=== PATIENT | female | born 1975 | race Caucasian/White ===

== ENCOUNTER 2020-07-28 10:35 | Observation (INO) | payer OTHER ==
[2020-07-28] MEDS ORDERED: Zofran 4 MG/2 ML VIAL IV ONE (10:51)
[2020-07-28] MEDS ORDERED: Sodium Chloride 0.9% 1000 ML 1,000 ML IV STA (10:51)
[2020-07-28] MEDS ORDERED: TORAdol 30 mg Injection IV ONE (10:51)
[2020-07-28] MEDS ORDERED: TORAdol 30 mg Injection ONE (10:58)
[2020-07-28] MEDS ORDERED: Sodium Chloride 0.9% 1000 ML 1,000 ML ONE (10:58)
[2020-07-28] MEDS ORDERED: Zofran 4 MG/2 ML VIAL ONE (10:58)
[2020-07-28 11:07] LABS: Absolute Neutrophil Ct (ANC) 6.49 (1.4-6.9); BASOPHIL % 0.2 % (0.0-0.4); Basophil (Absolute #) 0.02 (0-0.4); Eosinophil % 0.4 % (0.00-5.0); Eosinophil (Absolute #) 0.03 (0-0.5); Hematocrit 44.4 % (35-47); Hemoglobin 14.7 gm/dl (12.0-16.0); Lymphocyte (Absolute #) 1.34 (1.0-4.6); Lymphocytes % 16.5 % (24.0-44.0); Mean Cell Volume 76.9 fl (78-100); Mean Corpuscular Hemoglobin 25.5 pg (26-32); Mean Corpuscular Hgb Concent. 33.1 g/dl (32-36); Mean Platelet Volume 10.4 fl (7.5-11.0); Monocyte (Absolute #) 0.26 (0.0-1.3); Monocytes % 3.2 % (0.0-12.0); Neutrophil % 79.7 % (36.0-66.0); Platelet Count 326 K/mm3 (150-450); Red Blood Count 5.77 M/mm3 (4.1-5.4); Red Cell Distribution Width 13.7 % (11.5-14.0); White Blood Count 8.1 K/mm3 (4.0-10.5)
[2020-07-28 11:16] LABS: Amourphous Crystal FEW /HPF (NEGATIVE); Appearance CLOUDY (CLEAR); Bacteria FEW /HPF (NEGATIVE); Bilirubin NEGATIVE (NEGATIVE); Blood NEGATIVE Ery/ul (0-5); Epithelial Cells RARE /HPF (FEW); Glucose NEGATIVE (NEGATIVE); Ketones SMALL (NEGATIVE); Leukocyte Esterase NEGATIVE (NEGATIVE); Mucus SLIGHT /HPF (NEGATIVE); Nitrite NEGATIVE (NEGATIVE); Protein,Urine Dip 30 (Negative); Specific Gravity 1.018 (1.005-1.025); Urobilinogen NEGATIVE mg/dL (0-1); WBC 0-2 /HPF (0-5)
[2020-07-28 11:20] LABS: ALBUMIN 4.2 g/dL (3.5-5.0); ALKALINE PHOSPHATASE 176 U/L (38-126); ANION GAP 14.4 MEQ/L (5-15); BLOOD UREA NITROGEN 9 mg/dL (7-17); CHLORIDE 103 mmol/L (98-107); Carbon Dioxide 24 mmol/L (22-30); Creatinine 1 0.43 mg/dL (0.52-1.04); EST GLOMERULAR FILTRATION RATE > 60.0 ML/MIN; Glucose 137 mg/dL (74-106); LIPASE 56 U/L (23-300); Potassium 3.8 mmol/L (3.5-5.1); SGOT/AST 34 U/L (14-36); SGPT/ALT 34 U/L (0-35); SODIUM 137 mmol/L (137-145); Total Protein 7.7 g/dL (6.3-8.2)
[2020-07-28] MEDS ORDERED: BENADRYL 50 MG/ML IV ONE (11:45)
[2020-07-28] MEDS ORDERED: BENADRYL 50 MG/ML ONE (11:46)
--- NOTE | 2020-07-28 12:14 | XRAY ---
Indication: Left sided pain. Nausea and vomiting. Ureterolithiasis. Multiple contiguous axial images obtained through the abdomen and pelvis without contrast using renal stone protocol. Comparison: None Lung bases are clear. Heart is not enlarged. Small hiatal hernia. Several images through the abdomen are slightly degraded by respiration artifact. No renal calculus or evidence for obstructive uropathy in either system. Noncontrasted stomach and bowel loops appear nonobstructed. Normal appendix. No free fluid/air. Previous cholecystectomy. Remaining liver, pancreas, spleen, adrenal glands, kidneys, ureters, bladder, and uterus appear unremarkable for noncontrast exam. Minimal aortic calcifications without AAA. Osseous structures intact with minimal degenerative changes throughout the spine. No ventral or inguinal hernias. Impression: 1. Respiration artifact. 2. Negative renal calculus or evidence for obstructive uropathy. 3. Incidental small hiatal hernia.
--- NOTE | 2020-07-28 12:21 | ERPHSYRPT ---
- History of Present Illness Time Seen by Provider: 07/28/20 10:40 Historian: patient Exam Limitations: no limitations Patient Subjective Stated Complaint: PT states "About 12 hours ago I woke up and have been vomiting and having diarrhea ever since." Triage Nursing Assessment: Pt presented via ambulance and placed in room 6. PT moaning and unable to sit still. Pt dry heaving. PT went straight to bathroom and gave urine sample. PT complaining of abdominal pain. Physician History: Patient is a 45-year-old female presents to our ED with complaints of abdominal pain nausea vomiting. Patient states that she developed acute onset left flank pain approximately 12 hours prior to arrival. Patient states the pain made her vomit. She had some loose stools as well. She now has epigastric pain which she attributes to vomiting. Patient has a history of kidney stones. She believes she may have another one. Patient symptoms are similar to her previous kidney stone. No associated trauma. No fever. No hematuria or dysuria. No chest pain or shortness of breath. Symptoms are constant. Symptoms are moderate in intensity. No specific worsening or improving factors. Patient voices no other complaints or concerns at this time. Timing/Duration: today Activities at Onset: none Quality: aching Abdominal Pain Onset Location: epigastric, flank Pain Radiation: no radiation Severity of Pain-Max: moderate Severity of Pain-Current: mild Modifying Factors: Improves With: nothing Associated Symptoms: diarrhea, nausea, vomiting Previous symptoms: same symptoms as today Allergies/Adverse Reactions: sulfamethoxazole [From Septra] Allergy (Intermediate, Verified 07/28/20 10:52) Hives trimethoprim [From Septra] Allergy (Intermediate, Verified 07/28/20 10:52) Hives Home Medications: Gabapentin 400 mg [Neurontin 400 MG] 800 mg PO BID 07/28/20 [History] Lisinopril 20 mg [Zestril 20 MG] 40 mg PO DAILY 07/28/20 [History] Tizanidine HCl 4 mg [Zanaflex 4 MG] 4 mg PO DAILY 07/28/20 [History] Hx Tetanus, Diphtheria Vaccination/Date Given: No Hx Influenza Vaccination/Date Given: No Hx Pneumococcal Vaccination/Date Given: No Immunizations Up to Date: Yes Travel Risk - International Travel Have you traveled outside of the country in past 3 weeks: No - Coronavirus Screening Are you exhibiting any of the following symptoms?: Yes Symptoms: Vomiting/Diarrhea Close contact with a COVID-19 positive Pt in past 14-21 Days: No - Review of Systems Constitutional: No Symptoms, No Fever, No Chills Eyes: No Symptoms Ears, Nose, & Throat: No Symptoms Respiratory: No Symptoms, No Cough, No Dyspnea Cardiac: No Symptoms, No Chest Pain, No Edema, No Syncope Abdominal/Gastrointestinal: No Symptoms, No Abdominal Pain, No Nausea, No Vomiting, No Diarrhea Genitourinary Symptoms: No Symptoms, No Dysuria Musculoskeletal: No Symptoms, No Back Pain, No Neck Pain Skin: No Symptoms, No Rash Neurological: No Symptoms, No Dizziness, No Focal Weakness, No Sensory Changes Psychological: No Symptoms Endocrine: No Symptoms Hematologic/Lymphatic: No Symptoms Immunological/Allergic: No Symptoms All Other Systems: Reviewed and Negative - Past Medical History Pertinent Past Medical History: Yes Neurological History: No Pertinent History ENT History: No Pertinent History Cardiac History: Hypertension Respiratory History: No Pertinent History Endocrine Medical History: No Pertinent History Musculoskeletal History: No Pertinent History GI Medical History: No Pertinent History History: No Pertinent History Psycho-Social History: Anxiety Female Reproductive Disorders: No Pertinent History - Past Surgical History Past Surgical History: Yes Other Surgical History: mervin. tonsils and adnoids. carpal tunner bilat. kidney stones - Social History Smoking Status: Current every day smoker How long have you smoked: years Exposure to second hand smoke: Yes Drug Use: marijuana Patient Lives Alone: No - Female History Hx Last Menstrual Period: year ago Hx Now: No - Nursing Vital Signs Nursing Vital Signs: Initial Vital Signs Temperature 98.3 F 07/28/20 10:37 Pulse Rate 99 H 07/28/20 10:37 Respiratory Rate 24 07/28/20 10:37 Blood Pressure 140/98 07/28/20 10:37 O2 Sat by Pulse Oximetry 100 07/28/20 10:37 Pain Scale Pain Intensity 6 - Physical Exam General Appearance: no apparent distress, alert, other (Patient appears somewhat agitated. Patient states that she is agitated due to pain.) Eye Exam: PERRL/EOMI, eyes nml inspection Ears, Nose, Throat Exam: normal ENT inspection, pharynx normal, moist mucous membranes Neck Exam: normal inspection, non-tender, supple, full range of motion Respiratory Exam: normal breath sounds, lungs clear, No respiratory distress Cardiovascular Exam: regular rate/rhythm, normal heart sounds, other (There is some epigastric tenderness to palpation. Mild left CVA tenderness.) Gastrointestinal/Abdomen Exam: soft, tenderness, other (Epigastric tenderness to palpation. Left CVA tenderness. No guarding no pulsatile masses. No rebound. No organomegaly.), No mass Back Exam: normal inspection, normal range of motion, No CVA tenderness, No vertebral tenderness Extremity Exam: normal inspection, normal range of motion, pelvis stable Neurologic Exam: alert, oriented x 3, cooperative, normal mood/affect, nml cerebellar function, sensation nml, No motor deficits Skin Exam: normal color, warm, dry Lymphatic Exam: No adenopathy SpO2 Interpretation: normal SpO2: 98 O2 Delivery: Room Air - Course Nursing assessment & vital signs reviewed: Yes - CT Exams Abdomen/Pelvis CT Interpretation: Tele-radiologist Report (Artifact. Negative renal calculus. Negative obstructive uropathy. Incidental small hiatal hernia.) Ordered Tests: Active Orders 24 hr Category Date Time Status EKG-ER Only STAT Care 07/28/20 10:51 Active IV Insertion STAT Care 07/28/20 10:51 Active ABDOMEN AND PELVIS W/0 CONTRAS [CT] Stat Exams 07/28/20 10:51 Completed CBC W DIFF Stat Lab 07/28/20 11:02 Completed CMP Stat Lab 07/28/20 11:02 Completed HCG,QUALITATIVE URINE Stat Lab 07/28/20 11:02 Completed LIPASE Stat Lab 07/28/20 11:02 Completed TROPONIN Q3H Lab 07/28/20 11:02 Completed TROPONIN Q3H Lab 07/28/20 14:00 Ordered TROPONIN Q3H Lab 07/28/20 17:00 Ordered TROPONIN Q3H Lab 07/28/20 20:00 Ordered TROPONIN Q3H Lab 07/28/20 23:00 Ordered UA W/RFX UR CULTURE Stat Lab 07/28/20 11:02 Completed Urine Triage Profile Stat Lab 07/28/20 12:04 Completed Transfer Order Routine Transfer 07/28/20 Ordered Medication Summary Discontinued Medications Generic Name Dose Route Start Last Admin Trade Name Freq PRN Reason Stop Dose Admin Diphenhydramine HCl 25 mg 07/28/20 11:45 07/28/20 11:48 Benadryl 50 Mg/Ml IV 07/28/20 11:46 25 mg STAT ONE Administration Diphenhydramine HCl Confirm 07/28/20 11:46 Benadryl 50 Mg/Ml Administered 07/28/20 11:47 Dose 50 mg .ROUTE .STK-MED ONE Sodium Chloride 1,000 mls @ 999 mls/hr 07/28/20 10:51 07/28/20 12:05 Sodium Chloride 0.9% 1000 Ml IV 07/28/20 11:51 Infused .Q1H1M STA Infusion Sodium Chloride Confirm 07/28/20 10:58 Sodium Chloride 0.9% 1000 Ml Administered 07/28/20 10:59 Dose 1,000 mls @ ud .ROUTE .STK-MED ONE Ketorolac Tromethamine 30 mg 07/28/20 10:51 07/28/20 10:59 Toradol 30 Mg Injection IV 07/28/20 10:52 30 mg STAT ONE Administration Ketorolac Tromethamine Confirm 07/28/20 10:58 Toradol 30 Mg Injection Administered 07/28/20 10:59 Dose 30 mg .ROUTE .STK-MED ONE Metoclopramide HCl 10 mg 07/28/20 12:32 07/28/20 12:34 Reglan 10 Mg/2 Ml IV 07/28/20 12:33 10 mg STAT ONE Administration Metoclopramide HCl Confirm 07/28/20 12:34 Reglan 10 Mg/2 Ml Administered 07/28/20 12:35 Dose 10 mg .ROUTE .STK-MED ONE Ondansetron HCl 4 mg 07/28/20 10:51 07/28/20 10:59 Zofran 4 Mg/2 Ml Vial IV 07/28/20 10:52 4 mg STAT ONE Administration Ondansetron HCl Confirm 07/28/20 10:58 Zofran 4 Mg/2 Ml Vial Administered 07/28/20 10:59 Dose 4 mg .ROUTE .STK-MED ONE Lab/Rad Data: Laboratory Result Diagrams 07/28/20 11:02 07/28/20 11:02 Laboratory Results 07/28/20 07/28/20 07/28/20 Range/Units 12:04 11:02 11:02 WBC (4.0-10.5) K/mm3 RBC (4.1-5.4) M/mm3 Hgb (12.0-16.0) gm/dl Hct (35-47) % MCV (78-100) fl MCH (26-32) pg MCHC (32-36) g/dl RDW (11.5-14.0) % Plt Count (150-450) K/mm3 MPV (7.5-11.0) fl Gran % (36.0-66.0) % Eos # (Auto) (0-0.5) Absolute Lymphs (auto) (1.0-4.6) Absolute Monos (auto) (0.0-1.3) Lymphocytes % (24.0-44.0) % Monocytes % (0.0-12.0) % Eosinophils % (0.00-5.0) % Basophils % (0.0-0.4) % Absolute Granulocytes (1.4-6.9) Basophils # (0-0.4) Sodium (137-145) mmol/L Potassium (3.5-5.1) mmol/L Chloride (98-107) mmol/L Carbon Dioxide (22-30) mmol/L Anion Gap (5-15) MEQ/L BUN (7-17) mg/dL Creatinine (0.52-1.04) mg/dL Estimated GFR ML/MIN Glucose (74-106) mg/dL Calcium (8.4-10.2) mg/dL Total Bilirubin (0.2-1.3) mg/dL AST (14-36) U/L ALT (0-35) U/L Alkaline Phosphatase (38-126) U/L Troponin I < 0.012 (0.000-0.034) ng/mL Serum Total Protein (6.3-8.2) g/dL Albumin (3.5-5.0) g/dL Lipase (23-300) U/L Urine Color (YELLOW) Urine Appearance (CLEAR) Urine pH (5-6) Ur Specific [place] (1.005-1.025) Urine Protein (Negative) Urine Ketones (NEGATIVE) Urine Blood (0-5) Rommel/ul Urine Nitrite (NEGATIVE) Urine Bilirubin (NEGATIVE) Urine Urobilinogen (0-1) mg/dL Ur Leukocyte Esterase (NEGATIVE) Urine WBC (Auto) (0-5) /HPF Urine RBC (Auto) (0-2) /HPF U Epithel Cells (Auto) (FEW) /HPF Urine Bacteria (Auto) (NEGATIVE) /HPF Amorphous Crystals (NEGATIVE) /HPF Urine Mucus (Auto) (NEGATIVE) /HPF Urine Culture Reflexed (NO) Urine Glucose (NEGATIVE) mg/dL Urine HCG, Qual NEGATIVE (Negative) Urine Opiates Level NEGATIVE (NEGATIVE) Ur Methadone NEGATIVE (NEGATIVE) Urine Barbiturates NEGATIVE (NEGATIVE) Ur Phencyclidine (PCP) NEGATIVE (NEGATIVE) Urine Amphetamine NEGATIVE (NEGATIVE) U Benzodiazepine Level NEGATIVE (NEGATIVE) Urine Cocaine NEGATIVE (NEGATIVE) Urine Marijuana (THC) POSITIVE (NEGATIVE) 07/28/20 07/28/20 07/28/20 Range/Units 11:02 11:02 11:02 WBC 8.1 (4.0-10.5) K/mm3 RBC 5.77 H (4.1-5.4) M/mm3 Hgb 14.7 (12.0-16.0) gm/dl Hct 44.4 (35-47) % MCV 76.9 L (78-100) fl MCH 25.5 L (26-32) pg MCHC 33.1 (32-36) g/dl RDW 13.7 (11.5-14.0) % Plt Count 326 (150-450) K/mm3 MPV 10.4 (7.5-11.0) fl Gran % 79.7 H (36.0-66.0) % Eos # (Auto) 0.03 (0-0.5) Absolute Lymphs (auto) 1.34 (1.0-4.6) Absolute Monos (auto) 0.26 (0.0-1.3) Lymphocytes % 16.5 L (24.0-44.0) % Monocytes % 3.2 (0.0-12.0) % Eosinophils % 0.4 (0.00-5.0) % Basophils % 0.2 (0.0-0.4) % Absolute Granulocytes 6.49 (1.4-6.9) Basophils # 0.02 (0-0.4) Sodium 137 (137-145) mmol/L Potassium 3.8 (3.5-5.1) mmol/L Chloride 103 (98-107) mmol/L Carbon Dioxide 24 (22-30) mmol/L Anion Gap 14.4 (5-15) MEQ/L BUN 9 (7-17) mg/dL Creatinine 0.43 L (0.52-1.04) mg/dL Estimated GFR > 60.0 ML/MIN Glucose 137 H (74-106) mg/dL Calcium 10.0 (8.4-10.2) mg/dL Total Bilirubin 1.10 (0.2-1.3) mg/dL AST 34 (14-36) U/L ALT 34 (0-35) U/L Alkaline Phosphatase 176 H (38-126) U/L Troponin I (0.000-0.034) ng/mL Serum Total Protein 7.7 (6.3-8.2) g/dL Albumin 4.2 (3.5-5.0) g/dL Lipase 56 (23-300) U/L Urine Color YELLOW (YELLOW) Urine Appearance CLOUDY (CLEAR) Urine pH 8.0 (5-6) Ur Specific [place] 1.018 (1.005-1.025) Urine Protein 30 (Negative) Urine Ketones SMALL (NEGATIVE) Urine Blood NEGATIVE (0-5) Rommel/ul Urine Nitrite NEGATIVE (NEGATIVE) Urine Bilirubin NEGATIVE (NEGATIVE) Urine Urobilinogen NEGATIVE (0-1) mg/dL Ur Leukocyte Esterase NEGATIVE (NEGATIVE) Urine WBC (Auto) 0-2 (0-5) /HPF Urine RBC (Auto) NONE (0-2) /HPF U Epithel Cells (Auto) RARE (FEW) /HPF Urine Bacteria (Auto) FEW (NEGATIVE) /HPF Amorphous Crystals FEW (NEGATIVE) /HPF Urine Mucus (Auto) SLIGHT (NEGATIVE) /HPF Urine Culture Reflexed NO (NO) Urine Glucose NEGATIVE (NEGATIVE) mg/dL Urine HCG, Qual (Negative) Urine Opiates Level (NEGATIVE) Ur Methadone (NEGATIVE) Urine Barbiturates (NEGATIVE) Ur Phencyclidine (PCP) (NEGATIVE) Urine Amphetamine (NEGATIVE) U Benzodiazepine Level (NEGATIVE) Urine Cocaine (NEGATIVE) Urine Marijuana (THC) (NEGATIVE) - Progress Progress: improved Progress Note: Patient reassessed. Symptoms improved somewhat but not resolved. Patient requesting admission. Patient has a history and confirmed cannabis use. Work- up otherwise negative. However it appears that patient symptomology may likely be cannabis hyperemesis syndrome. We attempted to treat with capsaicin cream to abdomen however our pharmacy does not carry capsaicin cream. The other treatment option potentially would be droperidol. However patient received Zofran prior to arrival. Zofran is known to potentially prolong QT as does droperidol. patient can potentially have droperidol after 4 to 6 hours of last Zofran administration. Case discussed with Dr. Lowery who excepts admission to observation. Patient requesting admission. Patient agrees to admission [facility] for further evaluation and treatment. 07/28/20 13:54 Discussed with .: Stephany Will see patient in: hospital (observation) Counseled pt/family regarding: lab results, diagnosis, rad results - Departure Departure Disposition: Home Clinical Impression: Proteinuria, Cannabis hyperemesis syndrome concurrent with and due to cannabis abuse Condition: Stable Critical Care Time: No Referrals: DEMI ARANGO DO [Primary Care Provider] - Additional Instructions: Discharge/Care Plan ALLY LION was seen on 07/28/20 in the Emergency Room. The patient was counseled regarding Diagnosis,Lab results, Imaging studies, need for follow up and when to return to the Emergency Room. Prescriptions given: Discharge Note I have spoken with the patient and/or caregivers. I have explained the patient's condition, diagnosis and treatment plan based on the information available to me at this time. I have answered the patient's and/or caregiver's questions and addressed any concerns. The patient and/or caregivers have as good understanding of the patient's diagnosis, condition and treatment plan as can be expected at this point. The vital signs have been stable. The patient's condition is stable and appropriate for discharge from the emergency department. The patient will pursue further outpatient evaluation with the primary care physician or other designated or consulting physician as outlined in the discharge instructions. The patient and/or caregivers are agreeable to this plan of care and follow-up instructions have been explained in detail. The patient and/or caregivers have received these instruction. The patient/and or caregivers are aware that any significant change in condition or worsening of symptoms should prompt an immediate return to this or the closest emergency department or call 911.
[2020-07-28] MEDS ORDERED: Reglan 10 MG/2 ML IV ONE (12:32)
[2020-07-28] MEDS ORDERED: Reglan 10 MG/2 ML ONE (12:34)
[2020-07-28 12:37] LABS: Amphetamine,Urine NEGATIVE (NEGATIVE); Barbiturate,Urine NEGATIVE (NEGATIVE); Benzodiazepine,Urine NEGATIVE (NEGATIVE); Cocaine,Urine NEGATIVE (NEGATIVE); Methadone,Urine NEGATIVE (NEGATIVE); Opiate,Urine NEGATIVE (NEGATIVE); PCP,Urine NEGATIVE (NEGATIVE); THC,Urine POSITIVE (NEGATIVE)
[2020-07-28] MEDS: Zofran 4 MG/2 ML VIAL IV PRN ×2 (14:50→19:53)
[2020-07-28] MEDS: Sodium Chloride 0.9% 1000 ML 1,000 ML IV SCH (15:01)
[2020-07-28] MEDS: Ativan 2 MG/1 ML VIAL IV PRN ×2 (15:42→19:57)
[2020-07-28] MEDS: Zestril 20 MG PO SCH (16:14)
[2020-07-28] MEDS: Neurontin 400 MG PO SCH ×2 (16:14→21:55)
--- NOTE | 2020-07-28 16:28 | PCM.HP ---
History of Present Illness - Chief Complaint Chief Complaint: cannibis induced hyperemisis History of Present Illness: is a 45 year old female who presented to the ER today, she is normally followed by Dr Thomas. She developed acute onset of vomiting and abdominal and left flank pain around 3am, it was reminiscient of kidney stone pain she has experienced in the past, she continued to have pain and vomit so came to the ER, workup was essentially negative. Patient is writhing in the bed and was the same in the emergency department, admits to marijuana use but suspect other substance abuse as a possibility. - Review of Systems Constitutional: No Fever, No Chills Respiratory: No Cough, No Short Of Breath Cardiac: No Chest Pain, No Edema, No Syncope Abdominal/Gastrointestinal: Abdominal Pain, Nausea, Vomiting Genitourinary Symptoms: No Dysuria, No Frequency, No Hematuria Musculoskeletal: Back Pain Skin: No Rash All Other Systems: Reviewed and Negative Medications & Allergies Home Medications: Home Medication List Gabapentin 400 mg [Neurontin 400 MG] 800 mg PO TID 07/28/20 [History Confirmed 07/28/20] Lisinopril 20 mg [Zestril 20 MG] 40 mg PO DAILY 07/28/20 [History Confirmed 07/28/20] Tizanidine HCl 4 mg [Zanaflex 4 MG] 4 mg PO BID 07/28/20 [History Confirmed 07/28/20] Allergies/Adverse Reactions: Allergies Allergy/AdvReac Type Severity Reaction Status Date / Time sulfamethoxazole Allergy Intermediate Hives Verified 07/28/20 10:52 [From ] trimethoprim [From ] Allergy Intermediate Hives Verified 07/28/20 10:52 - Past Medical History Past Medical History: Yes Neurological History: Migraines ENT History: No Pertinent History Cardiac History: Hypertension Respiratory History: No Pertinent History Endocrine Medical History: No Pertinent History Musculoskelatal History: No Pertinent History GI Medical History: No Pertinent History History: No Pertinent History Pyscho-Social History: Anxiety Reproductive Disorders: No Pertinent History - Female History Hx Last Menstrual Period: 06/17/2019 Are you now?: No - Past Surgical History Past Surgical History: Yes Neuro Surgical History: No Pertinent History Cardiac History: No Pertinent History Respiratory Surgery: No Pertinent History GI Surgical History: Cholecystectomy Genitourinary Surgical Hx: No Pertinent History Musculskeletal Surgical Hx: No Pertinent History Female Surgical History: No Pertinent History Other Surgical History: mervin. tonsils and adnoids. carpal tunner bilat. kidney stones - Social History Smoking Status: Current every day smoker How long have you smoked: 15 years Exposure to second hand smoke: Yes Alcohol: None Drug Use: marijuana - Physical Exam Vital Signs: Vital Signs - 24 hr Temp Pulse Resp BP Pulse Ox 07/28/20 16:05 77 184/92 07/28/20 14:24 98.7 F 92 H 26 H 233/102 100 07/28/20 13:59 98 07/28/20 12:07 94 H 22 190/86 98 07/28/20 11:45 98.2 F 98 H 24 190/86 98 07/28/20 10:37 98.3 F 99 H 24 140/98 100 General Appearance: mild distress, other (patient writhing in bed but able to redirect with questioning and during exam) Neurologic Exam: alert, oriented x 3, cooperative Respiratory Exam: normal breath sounds, lungs clear, No respiratory distress Cardiovascular Exam: regular rate/rhythm, normal heart sounds, normal peripheral pulses Gastrointestinal/Abdomen Exam: soft, normal bowel sounds, No tenderness, No mass Extremity Exam: normal inspection, normal range of motion, pelvis stable Skin Exam: normal color, warm, dry, No rash Results - Labs Lab/Micro Results: Lab Results-Last 24 Hours 07/28/20 07/28/20 07/28/20 Range/Units 11:02 11:02 11:02 WBC 8.1 (4.0-10.5) K/mm3 RBC 5.77 H (4.1-5.4) M/mm3 Hgb 14.7 (12.0-16.0) gm/dl Hct 44.4 (35-47) % MCV 76.9 L (78-100) fl MCH 25.5 L (26-32) pg MCHC 33.1 (32-36) g/dl RDW 13.7 (11.5-14.0) % Plt Count 326 (150-450) K/mm3 MPV 10.4 (7.5-11.0) fl Gran % 79.7 H (36.0-66.0) % Eos # (Auto) 0.03 (0-0.5) Absolute Lymphs (auto) 1.34 (1.0-4.6) Absolute Monos (auto) 0.26 (0.0-1.3) Lymphocytes % 16.5 L (24.0-44.0) % Monocytes % 3.2 (0.0-12.0) % Eosinophils % 0.4 (0.00-5.0) % Basophils % 0.2 (0.0-0.4) % Absolute Granulocytes 6.49 (1.4-6.9) Basophils # 0.02 (0-0.4) Sodium 137 (137-145) mmol/L Potassium 3.8 (3.5-5.1) mmol/L Chloride 103 (98-107) mmol/L Carbon Dioxide 24 (22-30) mmol/L Anion Gap 14.4 (5-15) MEQ/L BUN 9 (7-17) mg/dL Creatinine 0.43 L (0.52-1.04) mg/dL Estimated GFR > 60.0 ML/MIN Glucose 137 H (74-106) mg/dL Calcium 10.0 (8.4-10.2) mg/dL Total Bilirubin 1.10 (0.2-1.3) mg/dL AST 34 (14-36) U/L ALT 34 (0-35) U/L Alkaline Phosphatase 176 H (38-126) U/L Troponin I (0.000-0.034) ng/mL Serum Total Protein 7.7 (6.3-8.2) g/dL Albumin 4.2 (3.5-5.0) g/dL Lipase 56 (23-300) U/L Urine Color YELLOW (YELLOW) Urine Appearance CLOUDY (CLEAR) Urine pH 8.0 (5-6) Ur Specific [place] 1.018 (1.005-1.025) Urine Protein 30 (Negative) Urine Ketones SMALL (NEGATIVE) Urine Blood NEGATIVE (0-5) Rommel/ul Urine Nitrite NEGATIVE (NEGATIVE) Urine Bilirubin NEGATIVE (NEGATIVE) Urine Urobilinogen NEGATIVE (0-1) mg/dL Ur Leukocyte Esterase NEGATIVE (NEGATIVE) Urine WBC (Auto) 0-2 (0-5) /HPF Urine RBC (Auto) NONE (0-2) /HPF U Epithel Cells (Auto) RARE (FEW) /HPF Urine Bacteria (Auto) FEW (NEGATIVE) /HPF Amorphous Crystals FEW (NEGATIVE) /HPF Urine Mucus (Auto) SLIGHT (NEGATIVE) /HPF Urine Culture Reflexed NO (NO) Urine Glucose NEGATIVE (NEGATIVE) mg/dL Urine HCG, Qual (Negative) Urine Opiates Level (NEGATIVE) Ur Methadone (NEGATIVE) Urine Barbiturates (NEGATIVE) Ur Phencyclidine (PCP) (NEGATIVE) Urine Amphetamine (NEGATIVE) U Benzodiazepine Level (NEGATIVE) Urine Cocaine (NEGATIVE) Urine Marijuana (THC) (NEGATIVE) 07/28/20 07/28/20 07/28/20 Range/Units 11:02 11:02 12:04 WBC (4.0-10.5) K/mm3 RBC (4.1-5.4) M/mm3 Hgb (12.0-16.0) gm/dl Hct (35-47) % MCV (78-100) fl MCH (26-32) pg MCHC (32-36) g/dl RDW (11.5-14.0) % Plt Count (150-450) K/mm3 MPV (7.5-11.0) fl Gran % (36.0-66.0) % Eos # (Auto) (0-0.5) Absolute Lymphs (auto) (1.0-4.6) Absolute Monos (auto) (0.0-1.3) Lymphocytes % (24.0-44.0) % Monocytes % (0.0-12.0) % Eosinophils % (0.00-5.0) % Basophils % (0.0-0.4) % Absolute Granulocytes (1.4-6.9) Basophils # (0-0.4) Sodium (137-145) mmol/L Potassium (3.5-5.1) mmol/L Chloride (98-107) mmol/L Carbon Dioxide (22-30) mmol/L Anion Gap (5-15) MEQ/L BUN (7-17) mg/dL Creatinine (0.52-1.04) mg/dL Estimated GFR ML/MIN Glucose (74-106) mg/dL Calcium (8.4-10.2) mg/dL Total Bilirubin (0.2-1.3) mg/dL AST (14-36) U/L ALT (0-35) U/L Alkaline Phosphatase (38-126) U/L Troponin I < 0.012 (0.000-0.034) ng/mL Serum Total Protein (6.3-8.2) g/dL Albumin (3.5-5.0) g/dL Lipase (23-300) U/L Urine Color (YELLOW) Urine Appearance (CLEAR) Urine pH (5-6) Ur Specific [place] (1.005-1.025) Urine Protein (Negative) Urine Ketones (NEGATIVE) Urine Blood (0-5) Rommel/ul Urine Nitrite (NEGATIVE) Urine Bilirubin (NEGATIVE) Urine Urobilinogen (0-1) mg/dL Ur Leukocyte Esterase (NEGATIVE) Urine WBC (Auto) (0-5) /HPF Urine RBC (Auto) (0-2) /HPF U Epithel Cells (Auto) (FEW) /HPF Urine Bacteria (Auto) (NEGATIVE) /HPF Amorphous Crystals (NEGATIVE) /HPF Urine Mucus (Auto) (NEGATIVE) /HPF Urine Culture Reflexed (NO) Urine Glucose (NEGATIVE) mg/dL Urine HCG, Qual NEGATIVE (Negative) Urine Opiates Level NEGATIVE (NEGATIVE) Ur Methadone NEGATIVE (NEGATIVE) Urine Barbiturates NEGATIVE (NEGATIVE) Ur Phencyclidine (PCP) NEGATIVE (NEGATIVE) Urine Amphetamine NEGATIVE (NEGATIVE) U Benzodiazepine Level NEGATIVE (NEGATIVE) Urine Cocaine NEGATIVE (NEGATIVE) Urine Marijuana (THC) POSITIVE (NEGATIVE) - Radiology Impressions Radiology Exams & Impressions: Radiology Procedures Category Date Time Status ABDOMEN AND PELVIS W/0 CONTRAS [CT] Stat Exams 07/28/20 10:51 Completed Assessment/Plan (1) Nausea and vomiting Current Visit: Yes Status: Acute Assessment & Plan: hydrate and treat with anti-emetics, suspect cannabis use as cause of hyperemesis possibly Code(s): R11.2 - NAUSEA WITH VOMITING, UNSPECIFIED (2) Abdominal pain Current Visit: Yes Status: Acute Assessment & Plan: benign exam, ct scan negative. will treat symptomatically and serial exams but exam shows a nonsurgical abdomen at this time. Code(s): R10.9 - UNSPECIFIED ABDOMINAL PAIN (3) Cannabis hyperemesis syndrome concurrent with and due to cannabis abuse Current Visit: Yes Status: Acute Code(s): F12.188 - CANNABIS ABUSE WITH OTHER CANNABIS-INDUCED DISORDER
[2020-07-28] MEDS: SUBLIMAZE 100 MCG/2 ML IV PRN ×2 (16:46→19:57)
[2020-07-28] MEDS: Inderal 20 MG PO SCH ×2 (18:18→22:24)
[2020-07-28] MEDS: PTU 50MG PO SCH (20:21)
[2020-07-28] MEDS: Zanaflex 4 MG PO SCH (21:55)
[2020-07-28] MEDS ORDERED: Compazine 10 MG/2 ML ONE (22:22)
[2020-07-28] MEDS ORDERED: Compazine 10 MG/2 ML IV SCH (22:30)
[2020-07-29] MEDS: SUBLIMAZE 100 MCG/2 ML IV PRN ×6 (00:17→23:13)
[2020-07-29] MEDS: Ativan 2 MG/1 ML VIAL IV PRN ×6 (00:19→23:13)
[2020-07-29] MEDS: PTU 50MG PO SCH ×7 (00:22→23:42)
[2020-07-29] MEDS: Sodium Chloride 0.9% 1000 ML 1,000 ML IV SCH ×3 (00:26→23:34)
[2020-07-29] MEDS: Zofran 4 MG/2 ML VIAL IV PRN ×4 (01:58→20:45)
[2020-07-29] MEDS: APRESOLINE 20 MG/ML INJ IV PRN ×4 (03:06→19:58)
[2020-07-29] MEDS: Compazine 10 MG/2 ML IV PRN ×2 (04:05→17:26)
[2020-07-29 04:41] LABS: Absolute Neutrophil Ct (ANC) 11.89 (1.4-6.9); BASOPHIL % 0.1 % (0.0-0.4); Basophil (Absolute #) 0.02 (0-0.4); Eosinophil (Absolute #) 0 (0-0.5); Hematocrit 44.4 % (35-47); Hemoglobin 14.5 gm/dl (12.0-16.0); Lymphocyte (Absolute #) 1.83 (1.0-4.6); Lymphocytes % 12.3 % (24.0-44.0); Mean Cell Volume 77.1 fl (78-100); Mean Corpuscular Hemoglobin 25.2 pg (26-32); Mean Corpuscular Hgb Concent. 32.7 g/dl (32-36); Mean Platelet Volume 10.1 fl (7.5-11.0); Monocytes % 7.4 % (0.0-12.0); Neutrophil % 80.2 % (36.0-66.0); Platelet Count 355 K/mm3 (150-450); Red Blood Count 5.76 M/mm3 (4.1-5.4); Red Cell Distribution Width 14.1 % (11.5-14.0); White Blood Count 14.8 K/mm3 (4.0-10.5)
[2020-07-29 05:05] LABS: AMYLASE 56 U/L (30-110); LIPASE 46 U/L (23-300)
[2020-07-29 05:06] LABS: ALBUMIN 4.4 g/dL (3.5-5.0); ALKALINE PHOSPHATASE 171 U/L (38-126); ANION GAP 17.8 MEQ/L (5-15); BLOOD UREA NITROGEN 9 mg/dL (7-17); CHLORIDE 98 mmol/L (98-107); Calcium 10.2 mg/dL (8.4-10.2); Carbon Dioxide 24 mmol/L (22-30); Creatinine 1 0.43 mg/dL (0.52-1.04); EST GLOMERULAR FILTRATION RATE > 60.0 ML/MIN; Glucose 133 mg/dL (74-106); Potassium 3.6 mmol/L (3.5-5.1); SGOT/AST 25 U/L (14-36); SGPT/ALT 29 U/L (0-35); SODIUM 136 mmol/L (137-145); Total Protein 7.6 g/dL (6.3-8.2)
[2020-07-29] MEDS: Inderal 20 MG PO SCH ×4 (06:55→23:42)
--- NOTE | 2020-07-29 09:09 | PCM.NOTE ---
Date and Time: 07/29/20906 Subjective Assessment: patient reports some slight improvement, she appears much less agitated this morning. she is still having abdominal pain and vomiting. Objective Exam General Appearance: mild distress Respiratory Exam: normal breath sounds, lungs clear, No respiratory distress Cardiovascular Exam: regular rate/rhythm, normal heart sounds Gastrointestinal/Abdomen Exam: soft, No tenderness, No mass Extremity Exam: normal inspection, normal range of motion OBJECTIVE DATA Vital Signs: Vital Signs - 24 hr Temp Pulse Resp BP Pulse Ox 07/29/20 07:07 98.1 F 98 H 16 187/88 94 L 07/29/20 04:00 98.4 F 88 18 147/75 96 07/29/20 00:00 99.6 F 117 H 21 160/90 98 07/28/20 20:00 98.4 F 110 H 20 191/98 98 07/28/20 18:18 102 H 22 184/90 07/28/20 16:05 77 184/92 07/28/20 14:24 98.7 F 92 H 26 H 233/102 100 07/28/20 13:59 98 07/28/20 12:07 94 H 22 190/86 98 07/28/20 11:45 98.2 F 98 H 24 190/86 98 07/28/20 10:37 98.3 F 99 H 24 140/98 100 Pain Assessment - Last Documented Pain Intensity 8 Pain Scale Used [facility] Intake and Output: Intake & Output 07/26/20 07/27/20 07/28/20 07/29/20 11:59 11:59 11:59 11:59 Intake Total 1749 Output Total 1850 Balance -101 Weight 81.647 kg 77.9 kg Lab Results: Lab Results-Last 24 Hours 07/28/20 07/28/20 07/28/20 Range/Units 11:02 11:02 11:02 WBC 8.1 (4.0-10.5) K/mm3 RBC 5.77 H (4.1-5.4) M/mm3 Hgb 14.7 (12.0-16.0) gm/dl Hct 44.4 (35-47) % MCV 76.9 L (78-100) fl MCH 25.5 L (26-32) pg MCHC 33.1 (32-36) g/dl RDW 13.7 (11.5-14.0) % Plt Count 326 (150-450) K/mm3 MPV 10.4 (7.5-11.0) fl Gran % 79.7 H (36.0-66.0) % Eos # (Auto) 0.03 (0-0.5) Absolute Lymphs (auto) 1.34 (1.0-4.6) Absolute Monos (auto) 0.26 (0.0-1.3) Lymphocytes % 16.5 L (24.0-44.0) % Monocytes % 3.2 (0.0-12.0) % Eosinophils % 0.4 (0.00-5.0) % Basophils % 0.2 (0.0-0.4) % Absolute Granulocytes 6.49 (1.4-6.9) Basophils # 0.02 (0-0.4) Sodium 137 (137-145) mmol/L Potassium 3.8 (3.5-5.1) mmol/L Chloride 103 (98-107) mmol/L Carbon Dioxide 24 (22-30) mmol/L Anion Gap 14.4 (5-15) MEQ/L BUN 9 (7-17) mg/dL Creatinine 0.43 L (0.52-1.04) mg/dL Estimated GFR > 60.0 ML/MIN Glucose 137 H (74-106) mg/dL Calcium 10.0 (8.4-10.2) mg/dL Total Bilirubin 1.10 (0.2-1.3) mg/dL AST 34 (14-36) U/L ALT 34 (0-35) U/L Alkaline Phosphatase 176 H (38-126) U/L Troponin I (0.000-0.034) ng/mL Serum Total Protein 7.7 (6.3-8.2) g/dL Albumin 4.2 (3.5-5.0) g/dL Amylase (30-110) U/L Lipase 56 (23-300) U/L Free T4 (0.76-1.46) ng/dL TSH 3rd Generation (0.47-4.68) mIU/L Urine Color YELLOW (YELLOW) Urine Appearance CLOUDY (CLEAR) Urine pH 8.0 (5-6) Ur Specific Holl[place] 1.018 (1.005-1.025) Urine Protein 30 (Negative) Urine Ketones SMALL (NEGATIVE) Urine Blood NEGATIVE (0-5) Rommel/ul Urine Nitrite NEGATIVE (NEGATIVE) Urine Bilirubin NEGATIVE (NEGATIVE) Urine Urobilinogen NEGATIVE (0-1) mg/dL Ur Leukocyte Esterase NEGATIVE (NEGATIVE) Urine WBC (Auto) 0-2 (0-5) /HPF Urine RBC (Auto) NONE (0-2) /HPF U Epithel Cells (Auto) RARE (FEW) /HPF Urine Bacteria (Auto) FEW (NEGATIVE) /HPF Amorphous Crystals FEW (NEGATIVE) /HPF Urine Mucus (Auto) SLIGHT (NEGATIVE) /HPF Urine Culture Reflexed NO (NO) Urine Glucose NEGATIVE (NEGATIVE) mg/dL Urine HCG, Qual (Negative) Urine Opiates Level (NEGATIVE) Ur Methadone (NEGATIVE) Urine Barbiturates (NEGATIVE) Ur Phencyclidine (PCP) (NEGATIVE) Urine Amphetamine (NEGATIVE) U Benzodiazepine Level (NEGATIVE) Urine Cocaine (NEGATIVE) Urine Marijuana (THC) (NEGATIVE) 07/28/20 07/28/20 07/28/20 Range/Units 11:02 11:02 11:02 WBC (4.0-10.5) K/mm3 RBC (4.1-5.4) M/mm3 Hgb (12.0-16.0) gm/dl Hct (35-47) % MCV (78-100) fl MCH (26-32) pg MCHC (32-36) g/dl RDW (11.5-14.0) % Plt Count (150-450) K/mm3 MPV (7.5-11.0) fl Gran % (36.0-66.0) % Eos # (Auto) (0-0.5) Absolute Lymphs (auto) (1.0-4.6) Absolute Monos (auto) (0.0-1.3) Lymphocytes % (24.0-44.0) % Monocytes % (0.0-12.0) % Eosinophils % (0.00-5.0) % Basophils % (0.0-0.4) % Absolute Granulocytes (1.4-6.9) Basophils # (0-0.4) Sodium (137-145) mmol/L Potassium (3.5-5.1) mmol/L Chloride (98-107) mmol/L Carbon Dioxide (22-30) mmol/L Anion Gap (5-15) MEQ/L BUN (7-17) mg/dL Creatinine (0.52-1.04) mg/dL Estimated GFR ML/MIN Glucose (74-106) mg/dL Calcium (8.4-10.2) mg/dL Total Bilirubin (0.2-1.3) mg/dL AST (14-36) U/L ALT (0-35) U/L Alkaline Phosphatase (38-126) U/L Troponin I < 0.012 (0.000-0.034) ng/mL Serum Total Protein (6.3-8.2) g/dL Albumin (3.5-5.0) g/dL Amylase (30-110) U/L Lipase (23-300) U/L Free T4 (0.76-1.46) ng/dL TSH 3rd Generation < 0.015 L (0.47-4.68) mIU/L Urine Color (YELLOW) Urine Appearance (CLEAR) Urine pH (5-6) Ur Specific [place] (1.005-1.025) Urine Protein (Negative) Urine Ketones (NEGATIVE) Urine Blood (0-5) Rommel/ul Urine Nitrite (NEGATIVE) Urine Bilirubin (NEGATIVE) Urine Urobilinogen (0-1) mg/dL Ur Leukocyte Esterase (NEGATIVE) Urine WBC (Auto) (0-5) /HPF Urine RBC (Auto) (0-2) /HPF U Epithel Cells (Auto) (FEW) /HPF Urine Bacteria (Auto) (NEGATIVE) /HPF Amorphous Crystals (NEGATIVE) /HPF Urine Mucus (Auto) (NEGATIVE) /HPF Urine Culture Reflexed (NO) Urine Glucose (NEGATIVE) mg/dL Urine HCG, Qual NEGATIVE (Negative) Urine Opiates Level (NEGATIVE) Ur Methadone (NEGATIVE) Urine Barbiturates (NEGATIVE) Ur Phencyclidine (PCP) (NEGATIVE) Urine Amphetamine (NEGATIVE) U Benzodiazepine Level (NEGATIVE) Urine Cocaine (NEGATIVE) Urine Marijuana (THC) (NEGATIVE) 07/28/20 07/28/20 07/29/20 Range/Units 11:02 12:04 04:37 WBC 14.8 H (4.0-10.5) K/mm3 RBC 5.76 H (4.1-5.4) M/mm3 Hgb 14.5 (12.0-16.0) gm/dl Hct 44.4 (35-47) % MCV 77.1 L (78-100) fl MCH 25.2 L (26-32) pg MCHC 32.7 (32-36) g/dl RDW 14.1 H (11.5-14.0) % Plt Count 355 (150-450) K/mm3 MPV 10.1 (7.5-11.0) fl Gran % 80.2 H (36.0-66.0) % Eos # (Auto) 0 (0-0.5) Absolute Lymphs (auto) 1.83 (1.0-4.6) Absolute Monos (auto) 1.10 (0.0-1.3) Lymphocytes % 12.3 L (24.0-44.0) % Monocytes % 7.4 (0.0-12.0) % Eosinophils % 0.0 (0.00-5.0) % Basophils % 0.1 (0.0-0.4) % Absolute Granulocytes 11.89 H (1.4-6.9) Basophils # 0.02 (0-0.4) Sodium (137-145) mmol/L Potassium (3.5-5.1) mmol/L Chloride (98-107) mmol/L Carbon Dioxide (22-30) mmol/L Anion Gap (5-15) MEQ/L BUN (7-17) mg/dL Creatinine (0.52-1.04) mg/dL Estimated GFR ML/MIN Glucose (74-106) mg/dL Calcium (8.4-10.2) mg/dL Total Bilirubin (0.2-1.3) mg/dL AST (14-36) U/L ALT (0-35) U/L Alkaline Phosphatase (38-126) U/L Troponin I (0.000-0.034) ng/mL Serum Total Protein (6.3-8.2) g/dL Albumin (3.5-5.0) g/dL Amylase (30-110) U/L Lipase (23-300) U/L Free T4 4.87 H (0.76-1.46) ng/dL TSH 3rd Generation (0.47-4.68) mIU/L Urine Color (YELLOW) Urine Appearance (CLEAR) Urine pH (5-6) Ur Specific [place] (1.005-1.025) Urine Protein (Negative) Urine Ketones (NEGATIVE) Urine Blood (0-5) Rommel/ul Urine Nitrite (NEGATIVE) Urine Bilirubin (NEGATIVE) Urine Urobilinogen (0-1) mg/dL Ur Leukocyte Esterase (NEGATIVE) Urine WBC (Auto) (0-5) /HPF Urine RBC (Auto) (0-2) /HPF U Epithel Cells (Auto) (FEW) /HPF Urine Bacteria (Auto) (NEGATIVE) /HPF Amorphous Crystals (NEGATIVE) /HPF Urine Mucus (Auto) (NEGATIVE) /HPF Urine Culture Reflexed (NO) Urine Glucose (NEGATIVE) mg/dL Urine HCG, Qual (Negative) Urine Opiates Level NEGATIVE (NEGATIVE) Ur Methadone NEGATIVE (NEGATIVE) Urine Barbiturates NEGATIVE (NEGATIVE) Ur Phencyclidine (PCP) NEGATIVE (NEGATIVE) Urine Amphetamine NEGATIVE (NEGATIVE) U Benzodiazepine Level NEGATIVE (NEGATIVE) Urine Cocaine NEGATIVE (NEGATIVE) Urine Marijuana (THC) POSITIVE (NEGATIVE) 07/29/20 07/29/20 Range/Units 04:37 04:37 WBC (4.0-10.5) K/mm3 RBC (4.1-5.4) M/mm3 Hgb (12.0-16.0) gm/dl Hct (35-47) % MCV (78-100) fl MCH (26-32) pg MCHC (32-36) g/dl RDW (11.5-14.0) % Plt Count (150-450) K/mm3 MPV (7.5-11.0) fl Gran % (36.0-66.0) % Eos # (Auto) (0-0.5) Absolute Lymphs (auto) (1.0-4.6) Absolute Monos (auto) (0.0-1.3) Lymphocytes % (24.0-44.0) % Monocytes % (0.0-12.0) % Eosinophils % (0.00-5.0) % Basophils % (0.0-0.4) % Absolute Granulocytes (1.4-6.9) Basophils # (0-0.4) Sodium 136 L (137-145) mmol/L Potassium 3.6 (3.5-5.1) mmol/L Chloride 98 (98-107) mmol/L Carbon Dioxide 24 (22-30) mmol/L Anion Gap 17.8 H (5-15) MEQ/L BUN 9 (7-17) mg/dL Creatinine 0.43 L (0.52-1.04) mg/dL Estimated GFR > 60.0 ML/MIN Glucose 133 H (74-106) mg/dL Calcium 10.2 (8.4-10.2) mg/dL Total Bilirubin 2.00 H (0.2-1.3) mg/dL AST 25 (14-36) U/L ALT 29 (0-35) U/L Alkaline Phosphatase 171 H (38-126) U/L Troponin I (0.000-0.034) ng/mL Serum Total Protein 7.6 (6.3-8.2) g/dL Albumin 4.4 (3.5-5.0) g/dL Amylase 56 (30-110) U/L Lipase 46 (23-300) U/L Free T4 (0.76-1.46) ng/dL TSH 3rd Generation (0.47-4.68) mIU/L Urine Color (YELLOW) Urine Appearance (CLEAR) Urine pH (5-6) Ur Specific [place] (1.005-1.025) Urine Protein (Negative) Urine Ketones (NEGATIVE) Urine Blood (0-5) Rommel/ul Urine Nitrite (NEGATIVE) Urine Bilirubin (NEGATIVE) Urine Urobilinogen (0-1) mg/dL Ur Leukocyte Esterase (NEGATIVE) Urine WBC (Auto) (0-5) /HPF Urine RBC (Auto) (0-2) /HPF U Epithel Cells (Auto) (FEW) /HPF Urine Bacteria (Auto) (NEGATIVE) /HPF Amorphous Crystals (NEGATIVE) /HPF Urine Mucus (Auto) (NEGATIVE) /HPF Urine Culture Reflexed (NO) Urine Glucose (NEGATIVE) mg/dL Urine HCG, Qual (Negative) Urine Opiates Level (NEGATIVE) Ur Methadone (NEGATIVE) Urine Barbiturates (NEGATIVE) Ur Phencyclidine (PCP) (NEGATIVE) Urine Amphetamine (NEGATIVE) U Benzodiazepine Level (NEGATIVE) Urine Cocaine (NEGATIVE) Urine Marijuana (THC) (NEGATIVE) Radiology Exams: Radiology Procedures Category Date Time Status ABDOMEN AND PELVIS W/0 CONTRAS [CT] Stat Exams 07/28/20 10:51 Completed Assessment/Plan (1) Thyrotoxicosis Current Visit: Yes Status: Acute Assessment & Plan: continue PTU and propranolol, would not initiate glucocorticoids as they are indicated in severe life threatening thyroid storm but does not appear to be the case. expect clinical improvement with time, continue current therapy and IV fluids Code(s): E05.90 - THYROTOXICOSIS, UNSP WITHOUT THYROTOXIC CRISIS OR STORM (2) Nausea and vomiting Current Visit: Yes Status: Acute Code(s): R11.2 - NAUSEA WITH VOMITING, UNSPECIFIED (3) Abdominal pain Current Visit: Yes Status: Acute Code(s): R10.9 - UNSPECIFIED ABDOMINAL PAIN
[2020-07-29] MEDS: Neurontin 400 MG PO SCH ×3 (09:46→20:45)
[2020-07-29] MEDS: Zestril 20 MG PO SCH (09:46)
[2020-07-29] MEDS: Zanaflex 4 MG PO SCH ×2 (11:39→20:45)
[2020-07-30] MEDS: SUBLIMAZE 100 MCG/2 ML IV PRN ×2 (02:40→06:46)
[2020-07-30] MEDS: Compazine 10 MG/2 ML IV PRN (04:17)
[2020-07-30] MEDS: PTU 50MG PO SCH ×3 (04:18→14:11)
[2020-07-30] MEDS: Ativan 2 MG/1 ML VIAL IV PRN ×3 (04:26→08:42)
[2020-07-30 06:39] LABS: Absolute Neutrophil Ct (ANC) 8.18 (1.4-6.9); BASOPHIL % 0.2 % (0.0-0.4); Basophil (Absolute #) 0.02 (0-0.4); Eosinophil % 0.2 % (0.00-5.0); Eosinophil (Absolute #) 0.02 (0-0.5); Hematocrit 47.2 % (35-47); Hemoglobin 15.3 gm/dl (12.0-16.0); Lymphocyte (Absolute #) 2.57 (1.0-4.6); Lymphocytes % 21.4 % (24.0-44.0); Mean Cell Volume 78.1 fl (78-100); Mean Corpuscular Hemoglobin 25.3 pg (26-32); Mean Corpuscular Hgb Concent. 32.4 g/dl (32-36); Mean Platelet Volume 10.4 fl (7.5-11.0); Neutrophil % 68.2 % (36.0-66.0); Platelet Count 344 K/mm3 (150-450); Red Blood Count 6.04 M/mm3 (4.1-5.4); Red Cell Distribution Width 14.5 % (11.5-14.0)
[2020-07-30] MEDS: Inderal 20 MG PO SCH ×2 (06:46→12:27)
[2020-07-30 07:29] LABS: ALKALINE PHOSPHATASE 143 U/L (38-126); BLOOD UREA NITROGEN 16 mg/dL (7-17); CHLORIDE 98 mmol/L (98-107); Calcium 9.5 mg/dL (8.4-10.2); Carbon Dioxide 28 mmol/L (22-30); Creatinine 1 0.54 mg/dL (0.52-1.04); EST GLOMERULAR FILTRATION RATE > 60.0 ML/MIN; Glucose 117 mg/dL (74-106); SGOT/AST 29 U/L (14-36); SGPT/ALT 29 U/L (0-35); SODIUM 136 mmol/L (137-145); TSH, 3RD Generation < 0.015 mIU/L (0.47-4.68); Total Protein 7.6 g/dL (6.3-8.2)
[2020-07-30 07:32] LABS: Potassium 2.9 mmol/L (3.5-5.1)
[2020-07-30 07:56] VITALS: O2SAT 95
[2020-07-30] MEDS: POTASSIUM CHLORIDE 20 mEq IN WATER 100ML 20 MEQ/100 ML BAG IV SCH ×2 (08:28→10:22)
[2020-07-30] MEDS: Zofran 4 MG/2 ML VIAL IV PRN (08:42)
[2020-07-30] MEDS: Neurontin 400 MG PO SCH ×2 (09:26→15:35)
[2020-07-30] MEDS: Zanaflex 4 MG PO SCH (09:26)
[2020-07-30] MEDS: Zestril 20 MG PO SCH (09:30)
[2020-07-30] MEDS: APRESOLINE 20 MG/ML INJ IV PRN (09:40)
[2020-07-30] MEDS: Sodium Chloride 0.9% 1000 ML 1,000 ML IV SCH (10:20)
[2020-07-30] MEDS ORDERED: Sodium Chloride 0.9% 1000 ML 1,000 ML IV SCH (11:00)
[2020-07-30] MEDS ORDERED: TYLENOL EXTRA STRENGTH 500 MG PO PRN (12:43)
[2020-07-30] MEDS ORDERED: Protonix 40MG Tablet PO SCH (13:49)
[2020-07-30] MEDS ORDERED: MELOXICAM PO SCH (15:22)
[2020-07-30] MEDS ORDERED: Ativan 0.5 MG PO ONE (15:23)
[2020-07-30 15:50] VITALS: BP 121/77; PULSE 90
--- NOTE | 2020-07-30 16:26 | PCM.DS ---
Discharge Summary Date of Admission: 07/28/20 14:04 Admitting Physician: TANIA GODFREY Primary Care Provider: DEMI ARANGO DO Allergies Allergies sulfamethoxazole [From ] Allergy (Intermediate, Verified 07/28/20 10:52) Hives trimethoprim [From ] Allergy (Intermediate, Verified 07/28/20 10:52) [facility] Summary - Hospital Course Hospital Course: Patient was admitted from ER with N/V and nonspecific abdominal pain. She has untreated Hyperthyroid and has had appt with Dr Thapa [employer].(patient's mother has Graves Dz)She was scheduled for Tx with radioactive iodine but did not do this because she was not told she could not be around her 2yr old son for 48 hour post tx. States she has not seen Dr Thapa since because of the Covid. N/V and abdominal pain has resolved. Has anxiety and pain in muscles. Is on Gabapentin and Tizanidine at home from her PCP Dr Navi Jaquez. Patient has been seeing [facility] ,Dr Patel due to amenorrhea which he feels is due to her thyroid condition. - Vitals & Intake/Output Vital Signs: Vital Signs Temperature 98.5 F 07/30/20 07:55 Pulse Rate 90 07/30/20 15:49 Respiratory Rate 16 07/30/20 07:55 Blood Pressure 121/77 07/30/20 15:49 O2 Sat by Pulse Oximetry 95 07/30/20 07:55 Intake & Output: Intake & Output 07/28/20 07/29/20 07/30/20 07/31/20 11:59 11:59 11:59 11:59 Intake Total 1749 3544 Output Total 1850 1600 Balance -101 1944 Weight 81.647 kg 77.9 kg - Lab Result Diagrams: 07/30/20 05:43 07/30/20 15:15 Lab Results-Last 24 Hrs: Lab Results-Last 24 Hours 07/30/20 07/30/20 07/30/20 Range/Units 05:43 05:43 05:43 WBC 12.0 H (4.0-10.5) K/mm3 RBC 6.04 H (4.1-5.4) M/mm3 Hgb 15.3 (12.0-16.0) gm/dl Hct 47.2 H (35-47) % MCV 78.1 (78-100) fl MCH 25.3 L (26-32) pg MCHC 32.4 (32-36) g/dl RDW 14.5 H (11.5-14.0) % Plt Count 344 (150-450) K/mm3 MPV 10.4 (7.5-11.0) fl Gran % 68.2 H (36.0-66.0) % Eos # (Auto) 0.02 (0-0.5) Absolute Lymphs (auto) 2.57 (1.0-4.6) Absolute Monos (auto) 1.20 (0.0-1.3) Lymphocytes % 21.4 L (24.0-44.0) % Monocytes % 10.0 (0.0-12.0) % Eosinophils % 0.2 (0.00-5.0) % Basophils % 0.2 (0.0-0.4) % Absolute Granulocytes 8.18 H (1.4-6.9) Basophils # 0.02 (0-0.4) Sodium 136 L (137-145) mmol/L Potassium 2.9 L* (3.5-5.1) mmol/L Chloride 98 (98-107) mmol/L Carbon Dioxide 28 (22-30) mmol/L Anion Gap 12.0 (5-15) MEQ/L BUN 16 (7-17) mg/dL Creatinine 0.54 (0.52-1.04) mg/dL Estimated GFR > 60.0 ML/MIN Glucose 117 H (74-106) mg/dL Calcium 9.5 (8.4-10.2) mg/dL Magnesium 2.0 (1.6-2.3) mg/dL Total Bilirubin 2.20 H (0.2-1.3) mg/dL AST 29 (14-36) U/L ALT 29 (0-35) U/L Alkaline Phosphatase 143 H (38-126) U/L Serum Total Protein 7.6 (6.3-8.2) g/dL Albumin 4.0 (3.5-5.0) g/dL Free T4 4.41 H (0.76-1.46) ng/dL TSH 3rd Generation < 0.015 L (0.47-4.68) mIU/L 07/30/20 Range/Units 15:15 WBC (4.0-10.5) K/mm3 RBC (4.1-5.4) M/mm3 Hgb (12.0-16.0) gm/dl Hct (35-47) % MCV (78-100) fl MCH (26-32) pg MCHC (32-36) g/dl RDW (11.5-14.0) % Plt Count (150-450) K/mm3 MPV (7.5-11.0) fl Gran % (36.0-66.0) % Eos # (Auto) (0-0.5) Absolute Lymphs (auto) (1.0-4.6) Absolute Monos (auto) (0.0-1.3) Lymphocytes % (24.0-44.0) % Monocytes % (0.0-12.0) % Eosinophils % (0.00-5.0) % Basophils % (0.0-0.4) % Absolute Granulocytes (1.4-6.9) Basophils # (0-0.4) Sodium (137-145) mmol/L Potassium 3.4 L (3.5-5.1) mmol/L Chloride (98-107) mmol/L Carbon Dioxide (22-30) mmol/L Anion Gap (5-15) MEQ/L BUN (7-17) mg/dL Creatinine (0.52-1.04) mg/dL Estimated GFR ML/MIN Glucose (74-106) mg/dL Calcium (8.4-10.2) mg/dL Magnesium (1.6-2.3) mg/dL Total Bilirubin (0.2-1.3) mg/dL AST (14-36) U/L ALT (0-35) U/L Alkaline Phosphatase (38-126) U/L Serum Total Protein (6.3-8.2) g/dL Albumin (3.5-5.0) g/dL Free T4 (0.76-1.46) ng/dL TSH 3rd Generation (0.47-4.68) mIU/L - Procedures and Test Procedures and Tests throughout Hospitalization: Therapy Orders & Screens 07/28/20 14:59 Smoking Cessation Education ONCE Comment: Diagnosis: cannibis induced hyperemisis Smoking Status: Current every day smoker How long have you smoked: 15 years Have you smoked in the past 12 months: Yes Approximately how many cigarettes per day: 5-6 Do you dip or chew tobacco: No - Discharge Disposition: Home, Self-Care Condition: Stable Prescriptions: No Action Lisinopril 20 mg [Zestril 20 MG] 40 mg PO DAILY Tizanidine HCl 4 mg [Zanaflex 4 MG] 4 mg PO BID Gabapentin 400 mg [Neurontin 400 MG] 800 mg PO TID Follow up with: DEMI ARANGO DO [Primary Care Provider] -
--- NOTE | 2020-07-30 16:45 | PCM.DCORD ---
- Discharge Disposition: Home, Self-Care Condition: Stable Prescriptions: New Meloxicam 7.5 mg PO BID #30 tablet PANTOPRAZOLE 40 mg Tablet [Protonix 40MG Tablet] 40 mg PO DAILY #30 tab Lorazepam 0.5 mg [Ativan 0.5 MG] 0.5 mg PO TID #21 tablet Discontinued Lisinopril 20 mg [Zestril 20 MG] 40 mg PO DAILY No Action Tizanidine HCl 4 mg [Zanaflex 4 MG] 4 mg PO BID Gabapentin 400 mg [Neurontin 400 MG] 800 mg PO TID Instructions: Nausea and Vomiting, Adult (DC), Hyperthyroidism (Overactive Thyroid) (DC) Additional Instructions: FOLLOW UP WITH DR LEONARDO SOON POSSIBLE. Follow up with: DEMI ARANGO DO [Primary Care Provider] - (Please keep your followup appt with Dr Arango on Aug 09 2020.) Forms: Discharge Instructions
== END 2020-07-30 17:10 | disposition home or self-care (01) ==
LOC: ED 10:35 → MED SURG 14:04
PROVIDERS: ADMIT Family Medicine; ATTEND Family Medicine
DX: R11.2 Nausea with vomiting, unspecified (principal); R10.9 Unspecified abdominal pain; F12.188 Cannabis abuse with other cannabis-induced disorder; I10 Essential (primary) hypertension; E05.90 Thyrotoxicosis, unspecified without thyrotoxic crisis or storm; F41.9 Anxiety disorder, unspecified; Z79.899 Other long term (current) drug therapy; R19.7 Diarrhea, unspecified
CPT/HCPCS: 36000; 36415; 74176; 80053; 80307; 81001; 82150; 83690; 83735; 84132; 84439; 84443; 84484; 84703; 85025; 93268; 96360; 96374; 96375; 99285; G0378; J0360; J1200; J1885; J2060; J2405; J3010; J3480; A9270-GY

== ENCOUNTER 2020-11-29 11:24 | Emergency (ER) | payer OTHER ==
[2020-11-29] MEDS ORDERED: Sodium Chloride 0.9% 1000 ML 1,000 ML IV STA (11:53)
[2020-11-29] MEDS ORDERED: Zofran 4 MG/2 ML VIAL IV ONE ×2 (11:54→14:57)
[2020-11-29] MEDS ORDERED: BENADRYL 50 MG/ML ONE (12:12)
[2020-11-29] MEDS ORDERED: Sodium Chloride 0.9% 1000 ML 1,000 ML ONE (12:12)
[2020-11-29] MEDS ORDERED: Zofran 4 MG/2 ML VIAL ONE ×2 (12:12→14:57)
[2020-11-29] MEDS ORDERED: BENADRYL 50 MG/ML IV ONE (12:13)
[2020-11-29 12:36] LABS: Absolute Neutrophil Ct (ANC) 7.79 (1.4-6.9); BASOPHIL % 0.1 % (0.0-0.4); Basophil (Absolute #) 0.01 (0-0.4); Eosinophil % 0.1 % (0.00-5.0); Eosinophil (Absolute #) 0.01 (0-0.5); Hematocrit 48.3 % (35-47); Hemoglobin 15.9 gm/dl (12.0-16.0); Lymphocyte (Absolute #) 0.78 (1.0-4.6); Lymphocytes % 8.7 % (24.0-44.0); Mean Corpuscular Hemoglobin 26.7 pg (26-32); Mean Corpuscular Hgb Concent. 32.9 g/dl (32-36); Mean Platelet Volume 10.3 fl (7.5-11.0); Monocyte (Absolute #) 0.34 (0.0-1.3); Monocytes % 3.8 % (0.0-12.0); Neutrophil % 87.3 % (36.0-66.0); Platelet Count 246 K/mm3 (150-450); Red Blood Count 5.96 M/mm3 (4.1-5.4); Red Cell Distribution Width 13.9 % (11.5-14.0); White Blood Count 8.9 K/mm3 (4.0-10.5)
[2020-11-29 12:54] LABS: ALBUMIN 3.9 g/dL (3.5-5.0); ALKALINE PHOSPHATASE 211 U/L (38-126); ANION GAP 13.5 MEQ/L (5-15); BLOOD UREA NITROGEN 13 mg/dL (7-17); CHLORIDE 102 mmol/L (98-107); Calcium 9.2 mg/dL (8.4-10.2); Carbon Dioxide 27 mmol/L (22-30); Creatinine 1 0.48 mg/dL (0.52-1.04); EST GLOMERULAR FILTRATION RATE > 60.0 ML/MIN; Glucose 140 mg/dL (74-106); MAGNESIUM 1.2 mg/dL (1.6-2.3); Potassium 3.3 mmol/L (3.5-5.1); SGOT/AST 26 U/L (14-36); SGPT/ALT 29 U/L (0-35); SODIUM 139 mmol/L (137-145); Total Protein 6.7 g/dL (6.3-8.2)
[2020-11-29] MEDS ORDERED: Klor Con 10 MEQ PO ONE ×2 (13:35→13:37)
--- NOTE | 2020-11-29 13:35 | ERPHSYRPT ---
- History of Present Illness Time Seen by Provider: 11/29/20 11:40 Source: patient Exam Limitations: no limitations Patient Subjective Stated Complaint: Pt woke up in the middle of the night and began vomiting, severe pain in the abdomen Triage Nursing Assessment: Pt brought to the ER by her mother, hypertensive, rates abdominal pain as 10/10, pain to the RLQ, skin n/w/d, smoked marijuana yesterday, N&V Physician History: Patient is a 45-year-old female with a history of kidney stones presents to our ED with complaints of acute onset right lower quadrant pain that started early this morning. Patient awoke from her sleep with her symptoms. She was also experiencing nausea and vomiting. Patient is here this morning with the same symptoms. Pain described as an ache that is localized. No radiation. Pain rated 10 out of 10. No trauma. No fever. Patient admits to history of marijuana use. No obvious hematuria. Patient voices no other complaints or concerns at this time. Timing/Duration: today Severity: moderate Modifying Factors: Improves With: nothing Associated Symptoms: nausea, vomiting, No fever, No malaise, No syncope, No seizure Allergies/Adverse Reactions: sulfamethoxazole [From Febra] Allergy (Intermediate, Verified 11/29/20 11:43) Hives trimethoprim [From Febra] Allergy (Intermediate, Verified 11/29/20 11:43) Hives Home Medications: Gabapentin 400 mg [Neurontin 400 MG] 800 mg PO TID 07/28/20 [History] Tizanidine HCl 4 mg [Zanaflex 4 MG] 2 mg PO BID 07/28/20 [History] Methimazole 30 mg PO BID 11/29/20 [History] Metoprolol Succinate 25 mg Xl* [Toprol-Xl 25MG Tablets] 25 mg PO DAILY 11/29/20 [History] Hx Tetanus, Diphtheria Vaccination/Date Given: No Hx Influenza Vaccination/Date Given: No Hx Pneumococcal Vaccination/Date Given: No Travel Risk - International Travel Have you traveled outside of the country in past 3 weeks: No - Coronavirus Screening Are you exhibiting any of the following symptoms?: No Close contact with a COVID-19 positive Pt in past 14-21 Days: No - Vaccine Status Have you recieved a Covid-19 vaccination: No - Review of Systems Constitutional: No Symptoms, No Fever, No Chills Eyes: No Symptoms Ears, Nose, & Throat: No Symptoms Respiratory: No Symptoms, No Cough, No Dyspnea Cardiac: No Symptoms, No Chest Pain, No Edema, No Syncope Abdominal/Gastrointestinal: No Symptoms, No Abdominal Pain, No Nausea, No Vomiting, No Diarrhea Genitourinary Symptoms: No Symptoms, No Dysuria Musculoskeletal: No Symptoms, No Back Pain, No Neck Pain Skin: No Symptoms, No Rash Neurological: No Symptoms, No Dizziness, No Focal Weakness, No Sensory Changes Psychological: No Symptoms Endocrine: No Symptoms Hematologic/Lymphatic: No Symptoms Immunological/Allergic: No Symptoms All Other Systems: Reviewed and Negative - Past Medical History Pertinent Past Medical History: Yes Neurological History: Migraines ENT History: No Pertinent History Cardiac History: Hypertension Respiratory History: No Pertinent History Endocrine Medical History: No Pertinent History, Hypothyroidism Musculoskeletal History: No Pertinent History GI Medical History: No Pertinent History History: No Pertinent History Psycho-Social History: Anxiety Female Reproductive Disorders: No Pertinent History - Past Surgical History Past Surgical History: Yes Neuro Surgical History: No Pertinent History Cardiac: No Pertinent History Respiratory: No Pertinent History Gastrointestinal: Cholecystectomy Genitourinary: No Pertinent History Musculoskeletal: No Pertinent History Female Surgical History: No Pertinent History Other Surgical History: carpal tunner bilat. kidney stones - Social History Smoking Status: Current every day smoker How long have you smoked: 15 years Exposure to second hand smoke: Yes Drug Use: marijuana Patient Lives Alone: No - Female History Hx Now: No - Nursing Vital Signs Nursing Vital Signs: Initial Vital Signs Temperature 98.6 F 11/29/20 11:32 Pulse Rate 92 H 11/29/20 11:32 Blood Pressure 203/105 11/29/20 11:32 O2 Sat by Pulse Oximetry 98 11/29/20 11:32 Pain Scale Pain Intensity 6 - Physical Exam General Appearance: alert, other (Patient experiencing nausea and vomiting.) Eye Exam: PERRL/EOMI, eyes nml inspection Ears, Nose, Throat Exam: normal ENT inspection, TMs normal, pharynx normal, moist mucous membranes Neck Exam: normal inspection, non-tender, supple, full range of motion Respiratory Exam: normal breath sounds, lungs clear, No respiratory distress Cardiovascular Exam: regular rate/rhythm, normal heart sounds, normal peripheral pulses Gastrointestinal/Abdomen Exam: soft, normal bowel sounds, No tenderness, No mass Back Exam: normal inspection, normal range of motion, No CVA tenderness, No vertebral tenderness Extremity Exam: normal inspection, normal range of motion, pelvis stable Neurologic Exam: alert, oriented x 3, cooperative, normal mood/affect, nml cerebellar function, No motor deficits Skin Exam: normal color, warm, dry, No rash Lymphatic Exam: No adenopathy SpO2 Interpretation: normal SpO2: 95 O2 Delivery: Room Air - Course Nursing assessment & vital signs reviewed: Yes EKG Interpreted by Me: RATE (76), Sinus Rhythm, NORMAL AXIS, NORMAL INTERVALS - CT Exams Abdomen/Pelvis CT Interpretation: Tele-radiologist Report (Small hiatal hernia. Stable 2 to 3 mm nonobstructing right renal calculus. Noncontrast stomach and bowel loops nonobstructed with normal appendix. Minimal distal aortic calcifications without aneurysm. Study shows minimal respiratory artifact. Remaining CT abdomen pelvis without contrast is aga) Ordered Tests: Active Orders 24 hr Category Date Time Status Inspector Watch Parts STAT Care 11/29/20 11:53 Completed EKG-ER Only STAT Care 11/29/20 11:53 Completed IV Insertion STAT Care 11/29/20 11:53 Completed Oxygen-ED Only Nasal Cannula 2 lpm Care 11/29/20 12:40 Completed Pulse Oximetry (ED) STAT Care 11/29/20 11:53 Completed ABDOMEN AND PELVIS W/0 CONTRAS [CT] Stat Exams 11/29/20 13:53 Completed CBC W DIFF Stat Lab 11/29/20 12:30 Completed CMP Stat Lab 11/29/20 12:30 Completed HCG,QUALITATIVE URINE Stat Lab 11/29/20 13:54 Completed MAGNESIUM Stat Lab 11/29/20 12:30 Completed TROPONIN Q3H Lab 11/29/20 12:30 Completed TROPONIN Q3H Lab 11/29/20 15:15 Completed TROPONIN Q3H Lab 11/29/20 18:20 Completed TROPONIN Q3H Lab 11/29/20 21:00 Completed TSH [TSH, 3RD Generation] Stat Lab 11/29/20 15:23 Completed UA W/RFX UR CULTURE Stat Lab 11/29/20 13:53 Completed Urine Triage Profile Stat Lab 11/29/20 19:20 Completed Medication Summary Discontinued Medications Generic Name Dose Route Start Last Admin Trade Name Freq PRN Reason Stop Dose Admin Diphenhydramine HCl 25 mg 11/29/20 12:13 11/29/20 12:14 Benadryl 50 Mg/Ml IV 11/29/20 12:14 25 mg STAT ONE Administration Diphenhydramine HCl Confirm 11/29/20 12:12 Benadryl 50 Mg/Ml Administered 11/29/20 12:13 Dose 50 mg .ROUTE .STK-MED ONE Sodium Chloride 1,000 mls @ 999 mls/hr 11/29/20 11:53 11/29/20 13:30 Sodium Chloride 0.9% 1000 Ml IV 11/29/20 12:53 Infused .Q1H1M STA Infusion Sodium Chloride Confirm 11/29/20 12:12 Sodium Chloride 0.9% 1000 Ml Administered 11/29/20 12:13 Dose 1,000 mls @ ud .ROUTE .STK-MED ONE Magnesium Sulfate/Dextrose 100 mls @ 100 mls/hr 11/29/20 13:45 11/29/20 14:21 Magnesium 1 Gm / 100 Ml D5w IV 11/29/20 15:44 100 mls/hr Q1H JOSE DANIEL Administration Magnesium Sulfate/Dextrose Confirm 11/29/20 13:37 Magnesium 1 Gm / 100 Ml D5w Administered 11/29/20 13:38 Dose 100 mls @ ud IV .STK-MED ONE Magnesium Sulfate/Dextrose Confirm 11/29/20 14:21 Magnesium 1 Gm / 100 Ml D5w Administered 11/29/20 14:22 Dose 100 mls @ ud IV .STK-MED ONE Labetalol HCl 20 mg 11/29/20 20:30 11/29/20 20:35 Trandate 20 Mg/4 Ml Syringe IV 11/29/20 20:31 20 mg STAT ONE Administration Labetalol HCl Confirm 11/29/20 20:33 Trandate 20 Mg/4 Ml Syringe Administered 11/29/20 20:34 Dose 20 mg IV .STK-MED ONE Ondansetron HCl 4 mg 11/29/20 11:54 11/29/20 12:14 Zofran 4 Mg/2 Ml Vial IV 11/29/20 11:55 4 mg STAT ONE Administration Ondansetron HCl Confirm 11/29/20 12:12 Zofran 4 Mg/2 Ml Vial Administered 11/29/20 12:13 Dose 4 mg .ROUTE .STK-MED ONE Ondansetron HCl 4 mg 11/29/20 14:57 11/29/20 14:59 Zofran 4 Mg/2 Ml Vial IV 11/29/20 14:58 4 mg STAT ONE Administration Ondansetron HCl Confirm 11/29/20 14:57 Zofran 4 Mg/2 Ml Vial Administered 11/29/20 14:58 Dose 4 mg .ROUTE .STK-MED ONE Potassium Chloride 40 meq 11/29/20 13:35 11/29/20 13:39 Klor Con 10 Meq PO 11/29/20 13:36 40 meq STAT ONE Administration Potassium Chloride Confirm 11/29/20 13:37 Klor Con 10 Meq Administered 11/29/20 13:38 Dose 40 meq PO .STK-MED ONE Prochlorperazine Edisylate 10 mg 11/29/20 20:50 11/29/20 20:51 Compazine 10 Mg/2 Ml IV 11/29/20 20:51 10 mg STAT ONE Administration Prochlorperazine Edisylate Confirm 11/29/20 20:50 Compazine 10 Mg/2 Ml Administered 11/29/20 20:51 Dose 10 mg .ROUTE .STK-MED ONE Lab/Rad Data: Laboratory Result Diagrams 11/29/20 12:30 11/29/20 12:30 Laboratory Results 11/29/20 11/29/20 11/29/20 Range/Units 21:00 19:20 18:20 WBC (4.0-10.5) K/mm3 RBC (4.1-5.4) M/mm3 Hgb (12.0-16.0) gm/dl Hct (35-47) % MCV (78-100) fl MCH (26-32) pg MCHC (32-36) g/dl RDW (11.5-14.0) % Plt Count (150-450) K/mm3 MPV (7.5-11.0) fl Gran % (36.0-66.0) % Eos # (Auto) (0-0.5) Absolute Lymphs (auto) (1.0-4.6) Absolute Monos (auto) (0.0-1.3) Lymphocytes % (24.0-44.0) % Monocytes % (0.0-12.0) % Eosinophils % (0.00-5.0) % Basophils % (0.0-0.4) % Absolute Granulocytes (1.4-6.9) Basophils # (0-0.4) Sodium (137-145) mmol/L Potassium (3.5-5.1) mmol/L Chloride (98-107) mmol/L Carbon Dioxide (22-30) mmol/L Anion Gap (5-15) MEQ/L BUN (7-17) mg/dL Creatinine (0.52-1.04) mg/dL Estimated GFR ML/MIN Glucose (74-106) mg/dL Calcium (8.4-10.2) mg/dL Magnesium (1.6-2.3) mg/dL Total Bilirubin (0.2-1.3) mg/dL AST (14-36) U/L ALT (0-35) U/L Alkaline Phosphatase (38-126) U/L Troponin I < 0.012 < 0.012 (0.000-0.034) ng/mL Serum Total Protein (6.3-8.2) g/dL Albumin (3.5-5.0) g/dL TSH 3rd Generation (0.47-4.68) mIU/L Urine Color (YELLOW) Urine Appearance (CLEAR) Urine pH (5-6) Ur Specific [place] (1.005-1.025) Urine Protein (Negative) Urine Ketones (NEGATIVE) Urine Blood (0-5) Rommel/ul Urine Nitrite (NEGATIVE) Urine Bilirubin (NEGATIVE) Urine Urobilinogen (0-1) mg/dL Ur Leukocyte Esterase (NEGATIVE) Urine WBC (Auto) (0-5) /HPF Urine RBC (Auto) (0-2) /HPF U Epithel Cells (Auto) (FEW) /HPF Urine Bacteria (Auto) (NEGATIVE) /HPF Urine Mucus (Auto) (NEGATIVE) /HPF Urine Culture Reflexed (NO) Urine Glucose (NEGATIVE) mg/dL Urine HCG, Qual (Negative) Urine Opiates Level NEGATIVE (NEGATIVE) Ur Methadone POSITIVE (NEGATIVE) Urine Barbiturates NEGATIVE (NEGATIVE) Ur Phencyclidine (PCP) NEGATIVE (NEGATIVE) Urine Amphetamine NEGATIVE (NEGATIVE) U Benzodiazepine Level NEGATIVE (NEGATIVE) Urine Cocaine NEGATIVE (NEGATIVE) Urine Marijuana (THC) POSITIVE (NEGATIVE) 11/29/20 11/29/20 11/29/20 Range/Units 15:23 15:15 13:54 WBC (4.0-10.5) K/mm3 RBC (4.1-5.4) M/mm3 Hgb (12.0-16.0) gm/dl Hct (35-47) % MCV (78-100) fl MCH (26-32) pg MCHC (32-36) g/dl RDW (11.5-14.0) % Plt Count (150-450) K/mm3 MPV (7.5-11.0) fl Gran % (36.0-66.0) % Eos # (Auto) (0-0.5) Absolute Lymphs (auto) (1.0-4.6) Absolute Monos (auto) (0.0-1.3) Lymphocytes % (24.0-44.0) % Monocytes % (0.0-12.0) % Eosinophils % (0.00-5.0) % Basophils % (0.0-0.4) % Absolute Granulocytes (1.4-6.9) Basophils # (0-0.4) Sodium (137-145) mmol/L Potassium (3.5-5.1) mmol/L Chloride (98-107) mmol/L Carbon Dioxide (22-30) mmol/L Anion Gap (5-15) MEQ/L BUN (7-17) mg/dL Creatinine (0.52-1.04) mg/dL Estimated GFR ML/MIN Glucose (74-106) mg/dL Calcium (8.4-10.2) mg/dL Magnesium (1.6-2.3) mg/dL Total Bilirubin (0.2-1.3) mg/dL AST (14-36) U/L ALT (0-35) U/L Alkaline Phosphatase (38-126) U/L Troponin I < 0.012 (0.000-0.034) ng/mL Serum Total Protein (6.3-8.2) g/dL Albumin (3.5-5.0) g/dL TSH 3rd Generation < 0.015 L (0.47-4.68) mIU/L Urine Color (YELLOW) Urine Appearance (CLEAR) Urine pH (5-6) Ur Specific [place] (1.005-1.025) Urine Protein (Negative) Urine Ketones (NEGATIVE) Urine Blood (0-5) Rommel/ul Urine Nitrite (NEGATIVE) Urine Bilirubin (NEGATIVE) Urine Urobilinogen (0-1) mg/dL Ur Leukocyte Esterase (NEGATIVE) Urine WBC (Auto) (0-5) /HPF Urine RBC (Auto) (0-2) /HPF U Epithel Cells (Auto) (FEW) /HPF Urine Bacteria (Auto) (NEGATIVE) /HPF Urine Mucus (Auto) (NEGATIVE) /HPF Urine Culture Reflexed (NO) Urine Glucose (NEGATIVE) mg/dL Urine HCG, Qual NEGATIVE (Negative) Urine Opiates Level (NEGATIVE) Ur Methadone (NEGATIVE) Urine Barbiturates (NEGATIVE) Ur Phencyclidine (PCP) (NEGATIVE) Urine Amphetamine (NEGATIVE) U Benzodiazepine Level (NEGATIVE) Urine Cocaine (NEGATIVE) Urine Marijuana (THC) (NEGATIVE) 11/29/20 11/29/20 11/29/20 Range/Units 13:53 12:30 12:30 WBC (4.0-10.5) K/mm3 RBC (4.1-5.4) M/mm3 Hgb (12.0-16.0) gm/dl Hct (35-47) % MCV (78-100) fl MCH (26-32) pg MCHC (32-36) g/dl RDW (11.5-14.0) % Plt Count (150-450) K/mm3 MPV (7.5-11.0) fl Gran % (36.0-66.0) % Eos # (Auto) (0-0.5) Absolute Lymphs (auto) (1.0-4.6) Absolute Monos (auto) (0.0-1.3) Lymphocytes % (24.0-44.0) % Monocytes % (0.0-12.0) % Eosinophils % (0.00-5.0) % Basophils % (0.0-0.4) % Absolute Granulocytes (1.4-6.9) Basophils # (0-0.4) Sodium 139 (137-145) mmol/L Potassium 3.3 L (3.5-5.1) mmol/L Chloride 102 (98-107) mmol/L Carbon Dioxide 27 (22-30) mmol/L Anion Gap 13.5 (5-15) MEQ/L BUN 13 (7-17) mg/dL Creatinine 0.48 L (0.52-1.04) mg/dL Estimated GFR > 60.0 ML/MIN Glucose 140 H (74-106) mg/dL Calcium 9.2 (8.4-10.2) mg/dL Magnesium 1.2 L (1.6-2.3) mg/dL Total Bilirubin 1.40 H (0.2-1.3) mg/dL AST 26 (14-36) U/L ALT 29 (0-35) U/L Alkaline Phosphatase 211 H (38-126) U/L Troponin I < 0.012 (0.000-0.034) ng/mL Serum Total Protein 6.7 (6.3-8.2) g/dL Albumin 3.9 (3.5-5.0) g/dL TSH 3rd Generation (0.47-4.68) mIU/L Urine Color YELLOW (YELLOW) Urine Appearance SLIGHTLY CLOUDY (CLEAR) Urine pH 7.0 (5-6) Ur Specific [place] 1.017 (1.005-1.025) Urine Protein NEGATIVE (Negative) Urine Ketones TRACE (NEGATIVE) Urine Blood NEGATIVE (0-5) Rommel/ul Urine Nitrite NEGATIVE (NEGATIVE) Urine Bilirubin NEGATIVE (NEGATIVE) Urine Urobilinogen NEGATIVE (0-1) mg/dL Ur Leukocyte Esterase NEGATIVE (NEGATIVE) Urine WBC (Auto) 0-2 (0-5) /HPF Urine RBC (Auto) 3-5 (0-2) /HPF U Epithel Cells (Auto) RARE (FEW) /HPF Urine Bacteria (Auto) RARE (NEGATIVE) /HPF Urine Mucus (Auto) SLIGHT (NEGATIVE) /HPF Urine Culture Reflexed NO (NO) Urine Glucose NEGATIVE (NEGATIVE) mg/dL Urine HCG, Qual (Negative) Urine Opiates Level (NEGATIVE) Ur Methadone (NEGATIVE) Urine Barbiturates (NEGATIVE) Ur Phencyclidine (PCP) (NEGATIVE) Urine Amphetamine (NEGATIVE) U Benzodiazepine Level (NEGATIVE) Urine Cocaine (NEGATIVE) Urine Marijuana (THC) (NEGATIVE) 11/29/20 Range/Units 12:30 WBC 8.9 (4.0-10.5) K/mm3 RBC 5.96 H (4.1-5.4) M/mm3 Hgb 15.9 (12.0-16.0) gm/dl Hct 48.3 H (35-47) % MCV 81.0 (78-100) fl MCH 26.7 (26-32) pg MCHC 32.9 (32-36) g/dl RDW 13.9 (11.5-14.0) % Plt Count 246 (150-450) K/mm3 MPV 10.3 (7.5-11.0) fl Gran % 87.3 H (36.0-66.0) % Eos # (Auto) 0.01 (0-0.5) Absolute Lymphs (auto) 0.78 L (1.0-4.6) Absolute Monos (auto) 0.34 (0.0-1.3) Lymphocytes % 8.7 L (24.0-44.0) % Monocytes % 3.8 (0.0-12.0) % Eosinophils % 0.1 (0.00-5.0) % Basophils % 0.1 (0.0-0.4) % Absolute Granulocytes 7.79 H (1.4-6.9) Basophils # 0.01 (0-0.4) Sodium (137-145) mmol/L Potassium (3.5-5.1) mmol/L Chloride (98-107) mmol/L Carbon Dioxide (22-30) mmol/L Anion Gap (5-15) MEQ/L BUN (7-17) mg/dL Creatinine (0.52-1.04) mg/dL Estimated GFR ML/MIN Glucose (74-106) mg/dL Calcium (8.4-10.2) mg/dL Magnesium (1.6-2.3) mg/dL Total Bilirubin (0.2-1.3) mg/dL AST (14-36) U/L ALT (0-35) U/L Alkaline Phosphatase (38-126) U/L Troponin I (0.000-0.034) ng/mL Serum Total Protein (6.3-8.2) g/dL Albumin (3.5-5.0) g/dL TSH 3rd Generation (0.47-4.68) mIU/L Urine Color (YELLOW) Urine Appearance (CLEAR) Urine pH (5-6) Ur Specific [place] (1.005-1.025) Urine Protein (Negative) Urine Ketones (NEGATIVE) Urine Blood (0-5) Rommel/ul Urine Nitrite (NEGATIVE) Urine Bilirubin (NEGATIVE) Urine Urobilinogen (0-1) mg/dL Ur Leukocyte Esterase (NEGATIVE) Urine WBC (Auto) (0-5) /HPF Urine RBC (Auto) (0-2) /HPF U Epithel Cells (Auto) (FEW) /HPF Urine Bacteria (Auto) (NEGATIVE) /HPF Urine Mucus (Auto) (NEGATIVE) /HPF Urine Culture Reflexed (NO) Urine Glucose (NEGATIVE) mg/dL Urine HCG, Qual (Negative) Urine Opiates Level (NEGATIVE) Ur Methadone (NEGATIVE) Urine Barbiturates (NEGATIVE) Ur Phencyclidine (PCP) (NEGATIVE) Urine Amphetamine (NEGATIVE) U Benzodiazepine Level (NEGATIVE) Urine Cocaine (NEGATIVE) Urine Marijuana (THC) (NEGATIVE) - Progress Progress: improved Progress Note: Patient reassessed. Symptoms improved. Blood pressure elevated. Patient received 20 mg of labetalol. Work-up reveals a hyperthyroidism which was a pre- existing diagnosis. Patient on methimazole. However patient did not received iodine therapy. Mild hypokalemia. Potassium replaced. Case discussed with Dr. Montoya who advised transfer to facility with endocrinology. Case discussed with Dr. Nassar of [facility] who accepts transfer. Plan of care discussed with patient. She agrees to transfer to [facility] for further evaluation and treatment. Patient voiced no other complaints concerns. 11/29/20 23:09 Discussed with : Other Counseled pt/family regarding: lab results, diagnosis, need for follow-up, rad results - Departure Departure Disposition: Transfer Clinical Impression: Nausea & vomiting, Hypomagnesemia, Hypokalemia, Hiatal hernia, Calcification without aneurysm., Gallbladder sludge, Fecal stasis, Lung nodule, Diverticulum of duodenum, Hyperthyroidism Condition: Stable Critical Care Time: No Referrals: DEMI ARANGO DO [Primary Care Provider] -
[2020-11-29] MEDS ORDERED: Magnesium 1 Gm / 100 Ml D5W*** 100 ML IV ONE ×2 (13:37→14:21)
[2020-11-29] MEDS: Magnesium 1 Gm / 100 Ml D5W*** 100 ML IV SCH ×2 (13:39→14:21)
[2020-11-29 14:23] LABS: Appearance SLIGHTLY CLOUDY (CLEAR); Bacteria RARE /HPF (NEGATIVE); Bilirubin NEGATIVE (NEGATIVE); Blood NEGATIVE Ery/ul (0-5); Epithelial Cells RARE /HPF (FEW); Glucose NEGATIVE (NEGATIVE); Ketones TRACE (NEGATIVE); Leukocyte Esterase NEGATIVE (NEGATIVE); Mucus SLIGHT /HPF (NEGATIVE); Nitrite NEGATIVE (NEGATIVE); Protein,Urine Dip NEGATIVE (Negative); Specific Gravity 1.017 (1.005-1.025); Urobilinogen NEGATIVE mg/dL (0-1); WBC 0-2 /HPF (0-5)
--- NOTE | 2020-11-29 14:37 | XRAY ---
Indication: Right abdomen pain and nausea. Urolithiasis. Multiple contiguous axial images obtained through the abdomen and pelvis without contrast. Comparison: July 28, 2020. Lung bases remain clear. Heart not enlarged. Again small hiatal hernia. Images through the abdomen slightly degraded by respiration artifact. Stable 2-3 mm nonobstructing right renal calculus. No other renal calculus or evidence for obstructive uropathy in either system. Noncontrasted stomach and bowel loops nonobstructed with normal appendix. Again previous cholecystectomy. No free fluid/air. Remaining liver, pancreas, spleen, adrenal glands, kidneys, ureters, bladder, and uterus unremarkable for noncontrast exam. Again minimal distal aortic calcifications without aneurysm. Osseous structures intact again with minimal degenerative changes to the spine. Impression: 1. Minimal respiration artifact. 2. Stable nonobstructing right renal micro-calculus and small hiatal hernia. 3. Remaining CT abdomen/pelvis without contrast exam is again negative.
[2020-11-29] MEDS ORDERED: TRANDATE 20 MG/4 ML SYRINGE IV ONE ×2 (20:30→20:33)
[2020-11-29 20:43] LABS: Amphetamine,Urine NEGATIVE (NEGATIVE); Barbiturate,Urine NEGATIVE (NEGATIVE); Benzodiazepine,Urine NEGATIVE (NEGATIVE); Cocaine,Urine NEGATIVE (NEGATIVE); Methadone,Urine POSITIVE (NEGATIVE); Opiate,Urine NEGATIVE (NEGATIVE); PCP,Urine NEGATIVE (NEGATIVE); THC,Urine POSITIVE (NEGATIVE)
[2020-11-29 20:49] VITALS: PULSE 84
[2020-11-29] MEDS ORDERED: Compazine 10 MG/2 ML IV ONE (20:50)
[2020-11-29] MEDS ORDERED: Compazine 10 MG/2 ML ONE (20:50)
[2020-11-29 20:55] VITALS: BP 193/110
[2020-11-29 23:12] VITALS: O2SAT 95
== END 2020-11-29 20:57 | disposition short-term general hospital (02) ==
LOC: ED 11:24
DX: R11.2 Nausea with vomiting, unspecified (principal); E83.42 Hypomagnesemia; E87.6 Hypokalemia; K44.9 Diaphragmatic hernia without obstruction or gangrene; I25.84 Coronary atherosclerosis due to calcified coronary lesion; K82.9 Disease of gallbladder, unspecified; K56.41 Fecal impaction; R91.1 Solitary pulmonary nodule; K57.10 Diverticulosis of small intestine without perforation or abscess without bleeding; E05.90 Thyrotoxicosis, unspecified without thyrotoxic crisis or storm; Z79.899 Other long term (current) drug therapy
CPT/HCPCS: 36000; 36415; 74176; 80053; 80307; 81001; 83735; 84443; 84484; 84703; 85025; 93005; 93041; 94760; 96360; 96365; 96366; 96374; 96375; 96376; 99285; J1200; J2405; J3475; A9270-GY

== ENCOUNTER 2021-01-05 13:59 | Inpatient (IN) | payer OTHER ==
[2021-01-05] MEDS ORDERED: DUONEB 0.5-3 MG/3 ml Neb IH ONE ×2 (14:04→14:07)
[2021-01-05] MEDS ORDERED: Zofran 4 MG/2 ML VIAL IV ONE (14:05)
[2021-01-05] MEDS ORDERED: Sodium Chloride 0.9% 1000 ML 1,000 ML IV STA (14:05)
[2021-01-05] MEDS ORDERED: Protonix 40MG Tablet PO ONE (14:05)
[2021-01-05] MEDS ORDERED: TYLENOL 325 MG PO ONE (14:05)
[2021-01-05] MEDS ORDERED: MORPHINE SULFATE 4 MG INJ IV ONE (14:05)
[2021-01-05] MEDS ORDERED: Ativan 2 MG/1 ML VIAL IV ONE ×2 (14:07→14:49)
[2021-01-05] MEDS ORDERED: Zofran 4 MG/2 ML VIAL ONE (14:21)
[2021-01-05] MEDS ORDERED: MORPHINE SULFATE 4 MG INJ ONE (14:21)
[2021-01-05] MEDS ORDERED: Protonix 40MG Tablet ONE (14:22)
[2021-01-05] MEDS ORDERED: TYLENOL 325 MG ONE (14:23)
[2021-01-05] MEDS ORDERED: Sodium Chloride 0.9% 1000 ML 1,000 ML ONE (14:24)
[2021-01-05] MEDS ORDERED: Ativan 2 MG/1 ML VIAL ONE (14:24)
[2021-01-05 14:37] LABS: Absolute Neutrophil Ct (ANC) 17.08 (1.4-6.9); Basophil (Absolute #) 0.01 (0-0.4); Eosinophil (Absolute #) 0 (0-0.5); Hematocrit 50.5 % (35-47); Hemoglobin 17.5 gm/dl (12.0-16.0); Lymphocyte (Absolute #) 2.38 (1.0-4.6); Lymphocytes % 11.3 % (24.0-44.0); Mean Cell Volume 77.6 fl (78-100); Mean Corpuscular Hemoglobin 26.9 pg (26-32); Mean Corpuscular Hgb Concent. 34.7 g/dl (32-36); Mean Platelet Volume 9.8 fl (7.5-11.0); Monocyte (Absolute #) 1.52 (0.0-1.3); Monocytes % 7.2 % (0.0-12.0); Neutrophil % 81.5 % (36.0-66.0); Platelet Count 379 K/mm3 (150-450); Red Blood Count 6.51 M/mm3 (4.1-5.4); Red Cell Distribution Width 15.3 % (11.5-14.0)
--- NOTE | 2021-01-05 15:01 | ERPHSYRPT ---
- History of Present Illness Time Seen by Provider: 01/05/21 14:05 Source: patient, EMS Exam Limitations: no limitations Patient Subjective Stated Complaint: vomiting and fever x 24 hours Triage Nursing Assessment: pt to ED by EMS c/o vomiting and fever x 24 hrs. pt is thrashing in bed with complaints of pain in hands, "they are clenched." eyes measure 5 mm and are equal and reactive to light. pt is fearful and tearful on arrival. denies any drug use. A&O to self, unable to name year or president and states in a hospital but unaware of which one. Physician History: 45 years old female with history of hypothyroidism, chronic pain syndrome on methadone, anxiety, tobacco abuse presented in the ER with 2 days history of multiple episodes of nonprojectile, nonbilious vomiting without hematemesis, unable to keep anything down. Complaining of dull aching to sharp moderate density pain all over her stomach without any significant aggravating or relieving factors. Patient reports having productive cough with fever chills and shortness of breath since yesterday as well. Patient was very tachycardic with heart rate in 160s, tachypneic and hyperventilating on EMS arrival and had carpopedal spasms. Denies any sick contact. Did not have Covid vaccine. Timing/Duration: day(s) (2), gradual onset, worse Severity: moderate Modifying Factors: Improves With: nothing Associated Symptoms: nausea, vomiting, abdominal pain, shortness of breath, cough, chills, chest pain, fever, malaise Allergies/Adverse Reactions: sulfamethoxazole [From ] Allergy (Intermediate, Verified 01/05/21 14:14) Hives trimethoprim [From ] Allergy (Intermediate, Verified 01/05/21 14:14) Hives Home Medications: Gabapentin 400 mg [Neurontin 400 MG] 800 mg PO TID 07/28/20 [History] Tizanidine HCl 4 mg [Zanaflex 4 MG] 2 mg PO BID 07/28/20 [History] Methimazole 30 mg PO BID 11/29/20 [History] Metoprolol Succinate 25 mg Xl* [Toprol-Xl 25MG Tablets] 25 mg PO DAILY 11/29/20 [History] Methadone HCl 10 mg [DOLOPHINE 10MG Tablet] 10 mg PO QID 01/05/21 [ History] Hx Tetanus, Diphtheria Vaccination/Date Given: No Hx Influenza Vaccination/Date Given: No Hx Pneumococcal Vaccination/Date Given: No Immunizations Up to Date: No Travel Risk - International Travel Have you traveled outside of the country in past 3 weeks: No - Coronavirus Screening Are you exhibiting any of the following symptoms?: Yes Symptoms: Fever, Vomiting/Diarrhea Close contact with a COVID-19 positive Pt in past 14-21 Days: No - Vaccine Status Have you recieved a Covid-19 vaccination: No - Review of Systems Constitutional: Fever, Chills, Fatigue, Weakness Eyes: Other (Exophthalmos bilaterally) Ears, Nose, & Throat: Throat Pain Respiratory: Cough, Dyspnea, Dyspnea on Exertion ([place]), Wheezing Cardiac: Chest Pain Abdominal/Gastrointestinal: Abdominal Pain, Nausea, Vomiting Genitourinary Symptoms: No Symptoms Musculoskeletal: Arthralgias, Back Pain, Myalgias Skin: No Symptoms Neurological: Headache Psychological: Anxiety Endocrine: No Symptoms Hematologic/Lymphatic: No Symptoms Immunological/Allergic: No Symptoms - Past Medical History Pertinent Past Medical History: Yes Neurological History: Migraines ENT History: No Pertinent History Cardiac History: Hypertension Respiratory History: No Pertinent History Endocrine Medical History: Hypothyroidism Musculoskeletal History: No Pertinent History GI Medical History: No Pertinent History History: No Pertinent History Psycho-Social History: Anxiety Female Reproductive Disorders: No Pertinent History - Past Surgical History Past Surgical History: Yes Neuro Surgical History: No Pertinent History Cardiac: No Pertinent History Respiratory: No Pertinent History Gastrointestinal: Cholecystectomy Genitourinary: No Pertinent History Musculoskeletal: No Pertinent History Female Surgical History: No Pertinent History Other Surgical History: carpal tunner bilat. kidney stones - Social History Smoking Status: Current every day smoker How long have you smoked: 15 years Exposure to second hand smoke: Yes Drug Use: marijuana Patient Lives Alone: No - Female History Hx Last Menstrual Period: unknown Hx Now: (unkn) - Nursing Vital Signs Nursing Vital Signs: Initial Vital Signs Temperature 99.3 F 01/05/21 14:00 Pulse Rate 124 H 01/05/21 14:00 Respiratory Rate 30 H 01/05/21 14:00 Blood Pressure 139/101 01/05/21 14:00 O2 Sat by Pulse Oximetry 97 01/05/21 14:00 Pain Scale Pain Intensity 4 - Physical Exam General Appearance: mild distress, alert, anxiety Eye Exam: PERRL/EOMI, other (Except for loss) Ears, Nose, Throat Exam: TMs normal, pharyngeal erythema Neck Exam: normal inspection, non-tender, supple, full range of motion Respiratory Exam: accessory muscle use, crackles/rales, wheezing Cardiovascular Exam: normal heart sounds, tachycardia Gastrointestinal/Abdomen Exam: soft, normal bowel sounds, tenderness (Generalized) Back Exam: normal inspection, normal range of motion Extremity Exam: normal inspection, normal range of motion, pelvis stable Neurologic Exam: alert, oriented x 3, cooperative, car hop II-XII nml as tested (Anxious), nml cerebellar function, sensation nml, No normal mood/affect, No motor deficits Skin Exam: normal color SpO2 Interpretation: normal SpO2: 94 O2 Delivery: Nasal Cannula - Course EKG Interpreted by Me: RATE (120), Sinus Tach, NORMAL AXIS, Non-specific ST Changes Ordered Tests: Active Orders 24 hr Category Date Time Status EKG-ER Only STAT Care 01/05/21 14:05 Active IV Insertion STAT Care 01/05/21 14:05 Active NPO (ED) STAT Care 01/05/21 14:05 Active ABDOMEN AND PELVIS W CONTRAST [CT] Stat Exams 01/05/21 15:32 Completed CHEST 1 VIEW (PORTABLE) Stat Exams 01/05/21 14:06 Completed CHEST WITH CONTRAST [CT] Stat Exams 01/05/21 15:32 Completed AMYLASE Stat Lab 01/05/21 14:10 Completed BLOOD CULTURE Stat Lab 01/05/21 14:17 Received BNP [NT PRO BNP] Stat Lab 01/05/21 15:14 Completed CBC W DIFF Stat Lab 01/05/21 14:10 Completed CMP Stat Lab 01/05/21 14:10 Completed CULTURE,URINE Stat Lab 01/05/21 15:41 Received ETHYL ALCOHOL Stat Lab 01/05/21 14:10 Completed HCG,QUALITATIVE URINE Stat Lab 01/05/21 15:41 Completed LIPASE Stat Lab 01/05/21 14:10 Completed Lactic Acid Stat Lab 01/05/21 14:23 Completed Lactic Acid Stat Lab 01/05/21 16:28 Completed MAG [MAGNESIUM] Stat Lab 01/05/21 15:18 Completed TROPONIN Q3H Lab 01/05/21 14:10 Completed TROPONIN Q3H Lab 01/05/21 17:20 Completed TROPONIN Q3H Lab 01/05/21 20:15 Ordered TROPONIN Q3H Lab 01/05/21 23:15 Ordered TROPONIN Q3H Lab 01/06/21 02:15 Ordered TSH, 3RD Generation Stat Lab 01/05/21 14:10 Completed UA W/RFX UR CULTURE Stat Lab 01/05/21 15:41 Completed Urine Triage Profile Stat Lab 01/05/21 15:41 Completed Respiratory Therapy Assessment DAILY RT 01/05/21 14:21 Active Transfer Order Routine Transfer 01/05/21 Ordered Medication Summary Discontinued Medications Generic Name Dose Route Start Last Admin Trade Name Sebastianq PRN Reason Stop Dose Admin Acetaminophen 975 mg 01/05/21 14:05 01/05/21 14:39 Tylenol 325 Mg PO 01/05/21 14:06 975 mg STAT ONE Administration Acetaminophen Confirm 01/05/21 14:23 Tylenol 325 Mg Administered 01/05/21 14:24 Dose 975 mg .ROUTE .STK-MED ONE Albuterol/Ipratropium Confirm 01/05/21 14:04 Duoneb 0.5-3 Mg/3 Ml Neb Administered 01/05/21 14:05 Dose 3 ml IH .STK-MED ONE Albuterol/Ipratropium 3 ml 01/05/21 14:07 01/05/21 14:15 Duoneb 0.5-3 Mg/3 Ml Neb IH 01/05/21 14:08 3 ml STAT ONE Administration Sodium Chloride 1,000 mls @ 999 mls/hr 01/05/21 14:05 01/05/21 15:00 Sodium Chloride 0.9% 1000 Ml IV 01/05/21 15:05 999 mls/hr .Q1H1M STA Administration Sodium Chloride Confirm 01/05/21 14:24 Sodium Chloride 0.9% 1000 Ml Administered 01/05/21 14:25 Dose 1,000 mls @ ud .ROUTE .STK-MED ONE Piperacillin Sod/Tazobactam 100 mls @ 200 mls/hr 01/05/21 15:05 01/05/21 15:25 Sod 3.375 gm/ Sodium Chloride IV 01/05/21 15:34 200 mls/hr STAT ONE Administration Magnesium Sulfate/Dextrose 100 mls @ 100 mls/hr 01/05/21 15:30 01/05/21 15:47 Magnesium 1 Gm / 100 Ml D5w IV 01/05/21 17:29 100 mls/hr Q1H JOSE DANIEL Administration Sodium Chloride Confirm 01/05/21 15:20 Sodium Chloride 100ml Mini-Bag Plus Administered 01/05/21 15:21 Dose 100 mls @ ud IV .STK-MED ONE Levofloxacin/Dextrose 750 mg in 150 mls @ 100 mls/hr 01/05/21 16:00 01/05/21 16:05 Levofloxacin 750mg/150ml D5w IV 01/05/21 17:29 100 mls/hr STAT STA 100 mls/hr Administration Levofloxacin/Dextrose Confirm 01/05/21 16:04 Levofloxacin 750mg/150ml D5w Administered 01/05/21 16:05 Dose 750 mg in 150 mls @ ud IV .STK-MED ONE Ketorolac Tromethamine 30 mg 01/05/21 16:14 01/05/21 16:19 Toradol 30 Mg Injection IV 01/05/21 16:15 30 mg STAT ONE Administration Ketorolac Tromethamine Confirm 01/05/21 16:17 Toradol 30 Mg Injection Administered 01/05/21 16:18 Dose 30 mg .ROUTE .STK-MED ONE Lorazepam 1 mg 01/05/21 14:07 01/05/21 14:49 Ativan 2 Mg/1 Ml Vial IV 01/05/21 14:08 Not Given STAT ONE Lorazepam Confirm 01/05/21 14:24 Ativan 2 Mg/1 Ml Vial Administered 01/05/21 14:25 Dose 2 mg .ROUTE .STK-MED ONE Lorazepam 0.5 mg 01/05/21 14:49 01/05/21 14:52 Ativan 2 Mg/1 Ml Vial IV 01/05/21 14:50 0.5 mg STAT ONE Administration Morphine Sulfate 4 mg 01/05/21 14:05 01/05/21 14:32 Morphine Sulfate 4 Mg Inj IV 01/05/21 14:06 4 mg STAT ONE Administration Morphine Sulfate Confirm 01/05/21 14:21 Morphine Sulfate 4 Mg Inj Administered 01/05/21 14:22 Dose 4 mg .ROUTE .STK-MED ONE Ondansetron HCl 4 mg 01/05/21 14:05 01/05/21 14:32 Zofran 4 Mg/2 Ml Vial IV 01/05/21 14:06 4 mg STAT ONE Administration Ondansetron HCl Confirm 01/05/21 14:21 Zofran 4 Mg/2 Ml Vial Administered 01/05/21 14:22 Dose 4 mg .ROUTE .STK-MED ONE Pantoprazole Sodium 40 mg 01/05/21 14:05 01/05/21 14:40 Protonix 40mg Tablet PO 01/05/21 14:06 40 mg STAT ONE Administration Pantoprazole Sodium Confirm 01/05/21 14:22 Protonix 40mg Tablet Administered 01/05/21 14:23 Dose 40 mg .ROUTE .STK-MED ONE Piperacillin Sod/Tazobactam Sod Confirm 01/05/21 15:19 Zosyn 3.375 Gm Vial Administered 01/05/21 15:20 Dose 3.375 gm IV .STK-MED ONE Potassium Chloride 40 meq 01/05/21 15:19 01/05/21 15:46 Klor Con 10 Meq PO 01/05/21 15:20 40 meq STAT ONE Administration Potassium Chloride Confirm 01/05/21 15:44 Klor Con 10 Meq Administered 01/05/21 15:45 Dose 40 meq PO .STK-MED ONE Propranolol HCl 60 mg 01/05/21 15:27 01/05/21 15:50 Inderal 20 Mg PO 01/05/21 15:28 60 mg ONCE STA Administration Propylthiouracil 500 mg 01/05/21 16:28 01/05/21 17:59 Ptu 50mg PO 01/05/21 16:29 500 mg ONCE STA Administration Lab/Rad Data: Laboratory Result Diagrams 01/05/21 14:10 01/05/21 14:10 Laboratory Results 01/05/21 01/05/21 01/05/21 Range/Units 18:10 17:20 16:28 WBC (4.0-10.5) K/mm3 RBC (4.1-5.4) M/mm3 Hgb (12.0-16.0) gm/dl Hct (35-47) % MCV (78-100) fl MCH (26-32) pg MCHC (32-36) g/dl RDW (11.5-14.0) % Plt Count (150-450) K/mm3 MPV (7.5-11.0) fl Gran % (36.0-66.0) % Eos # (Auto) (0-0.5) Absolute Lymphs (auto) (1.0-4.6) Absolute Monos (auto) (0.0-1.3) Lymphocytes % (24.0-44.0) % Monocytes % (0.0-12.0) % Eosinophils % (0.00-5.0) % Basophils % (0.0-0.4) % Absolute Granulocytes (1.4-6.9) Basophils # (0-0.4) Sodium (137-145) mmol/L Potassium (3.5-5.1) mmol/L Chloride (98-107) mmol/L Carbon Dioxide (22-30) mmol/L Anion Gap (5-15) MEQ/L BUN (7-17) mg/dL Creatinine (0.52-1.04) mg/dL Estimated GFR ML/MIN Glucose (74-106) mg/dL Lactic Acid 1.8 (0.4-2.0) Calcium (8.4-10.2) mg/dL Magnesium (1.6-2.3) mg/dL Total Bilirubin (0.2-1.3) mg/dL AST (14-36) U/L ALT (0-35) U/L Alkaline Phosphatase (38-126) U/L Troponin I 0.059 H* (0.000-0.034) ng/mL NT-Pro-B Natriuret Pep (0-450) pg/mL Serum Total Protein (6.3-8.2) g/dL Albumin (3.5-5.0) g/dL Amylase (30-110) U/L Lipase (23-300) U/L Free T4 (0.76-1.46) ng/dL TSH 3rd Generation (0.47-4.68) mIU/L Urine Color (YELLOW) Urine Appearance (CLEAR) Urine pH (5-6) Ur Specific [place] (1.005-1.025) Urine Protein (Negative) Urine Ketones (NEGATIVE) Urine Blood (0-5) Rmomel/ul Urine Nitrite (NEGATIVE) Urine Bilirubin (NEGATIVE) Urine Urobilinogen (0-1) mg/dL Ur Leukocyte Esterase (NEGATIVE) Urine WBC (Auto) (0-5) /HPF Urine RBC (Auto) (0-2) /HPF U Epithel Cells (Auto) (FEW) /HPF Urine Bacteria (Auto) (NEGATIVE) /HPF Urine Culture Reflexed (NO) Urine Glucose (NEGATIVE) mg/dL Urine HCG, Qual (Negative) Urine Opiates Level (NEGATIVE) Ur Methadone (NEGATIVE) Urine Barbiturates (NEGATIVE) Ur Phencyclidine (PCP) (NEGATIVE) Urine Amphetamine (NEGATIVE) U Benzodiazepine Level (NEGATIVE) Urine Cocaine (NEGATIVE) Urine Marijuana (THC) (NEGATIVE) Ethyl Alcohol (0-10) mg/dL SARS-CoV-2 (PCR) NEGATIVE (NEGATIVE) 01/05/21 01/05/21 01/05/21 Range/Units 15:41 15:41 15:41 WBC (4.0-10.5) K/mm3 RBC (4.1-5.4) M/mm3 Hgb (12.0-16.0) gm/dl Hct (35-47) % MCV (78-100) fl MCH (26-32) pg MCHC (32-36) g/dl RDW (11.5-14.0) % Plt Count (150-450) K/mm3 MPV (7.5-11.0) fl Gran % (36.0-66.0) % Eos # (Auto) (0-0.5) Absolute Lymphs (auto) (1.0-4.6) Absolute Monos (auto) (0.0-1.3) Lymphocytes % (24.0-44.0) % Monocytes % (0.0-12.0) % Eosinophils % (0.00-5.0) % Basophils % (0.0-0.4) % Absolute Granulocytes (1.4-6.9) Basophils # (0-0.4) Sodium (137-145) mmol/L Potassium (3.5-5.1) mmol/L Chloride (98-107) mmol/L Carbon Dioxide (22-30) mmol/L Anion Gap (5-15) MEQ/L BUN (7-17) mg/dL Creatinine (0.52-1.04) mg/dL Estimated GFR ML/MIN Glucose (74-106) mg/dL Lactic Acid (0.4-2.0) Calcium (8.4-10.2) mg/dL Magnesium (1.6-2.3) mg/dL Total Bilirubin (0.2-1.3) mg/dL AST (14-36) U/L ALT (0-35) U/L Alkaline Phosphatase (38-126) U/L Troponin I (0.000-0.034) ng/mL NT-Pro-B Natriuret Pep (0-450) pg/mL Serum Total Protein (6.3-8.2) g/dL Albumin (3.5-5.0) g/dL Amylase (30-110) U/L Lipase (23-300) U/L Free T4 (0.76-1.46) ng/dL TSH 3rd Generation (0.47-4.68) mIU/L Urine Color YELLOW (YELLOW) Urine Appearance SLIGHTLY CLOUDY (CLEAR) Urine pH 8.0 (5-6) Ur Specific [place] 1.003 (1.005-1.025) Urine Protein 100 (Negative) Urine Ketones NEGATIVE (NEGATIVE) Urine Blood SMALL (0-5) Rommel/ul Urine Nitrite NEGATIVE (NEGATIVE) Urine Bilirubin NEGATIVE (NEGATIVE) Urine Urobilinogen NEGATIVE (0-1) mg/dL Ur Leukocyte Esterase NEGATIVE (NEGATIVE) Urine WBC (Auto) 0-2 (0-5) /HPF Urine RBC (Auto) 0-2 (0-2) /HPF U Epithel Cells (Auto) RARE (FEW) /HPF Urine Bacteria (Auto) RARE (NEGATIVE) /HPF Urine Culture Reflexed YES (NO) Urine Glucose NEGATIVE (NEGATIVE) mg/dL Urine HCG, Qual NEGATIVE (Negative) Urine Opiates Level POSITIVE (NEGATIVE) Ur Methadone POSITIVE (NEGATIVE) Urine Barbiturates NEGATIVE (NEGATIVE) Ur Phencyclidine (PCP) NEGATIVE (NEGATIVE) Urine Amphetamine NEGATIVE (NEGATIVE) U Benzodiazepine Level NEGATIVE (NEGATIVE) Urine Cocaine NEGATIVE (NEGATIVE) Urine Marijuana (THC) POSITIVE (NEGATIVE) Ethyl Alcohol (0-10) mg/dL SARS-CoV-2 (PCR) (NEGATIVE) 01/05/21 01/05/21 01/05/21 Range/Units 15:18 15:14 14:23 WBC (4.0-10.5) K/mm3 RBC (4.1-5.4) M/mm3 Hgb (12.0-16.0) gm/dl Hct (35-47) % MCV (78-100) fl MCH (26-32) pg MCHC (32-36) g/dl RDW (11.5-14.0) % Plt Count (150-450) K/mm3 MPV (7.5-11.0) fl Gran % (36.0-66.0) % Eos # (Auto) (0-0.5) Absolute Lymphs (auto) (1.0-4.6) Absolute Monos (auto) (0.0-1.3) Lymphocytes % (24.0-44.0) % Monocytes % (0.0-12.0) % Eosinophils % (0.00-5.0) % Basophils % (0.0-0.4) % Absolute Granulocytes (1.4-6.9) Basophils # (0-0.4) Sodium (137-145) mmol/L Potassium (3.5-5.1) mmol/L Chloride (98-107) mmol/L Carbon Dioxide (22-30) mmol/L Anion Gap (5-15) MEQ/L BUN (7-17) mg/dL Creatinine (0.52-1.04) mg/dL Estimated GFR ML/MIN Glucose (74-106) mg/dL Lactic Acid 4.7 H (0.4-2.0) Calcium (8.4-10.2) mg/dL Magnesium 1.4 L (1.6-2.3) mg/dL Total Bilirubin (0.2-1.3) mg/dL AST (14-36) U/L ALT (0-35) U/L Alkaline Phosphatase (38-126) U/L Troponin I (0.000-0.034) ng/mL NT-Pro-B Natriuret Pep 4140 H (0-450) pg/mL Serum Total Protein (6.3-8.2) g/dL Albumin (3.5-5.0) g/dL Amylase (30-110) U/L Lipase (23-300) U/L Free T4 (0.76-1.46) ng/dL TSH 3rd Generation (0.47-4.68) mIU/L Urine Color (YELLOW) Urine Appearance (CLEAR) Urine pH (5-6) Ur Specific [place] (1.005-1.025) Urine Protein (Negative) Urine Ketones (NEGATIVE) Urine Blood (0-5) Rommel/ul Urine Nitrite (NEGATIVE) Urine Bilirubin (NEGATIVE) Urine Urobilinogen (0-1) mg/dL Ur Leukocyte Esterase (NEGATIVE) Urine WBC (Auto) (0-5) /HPF Urine RBC (Auto) (0-2) /HPF U Epithel Cells (Auto) (FEW) /HPF Urine Bacteria (Auto) (NEGATIVE) /HPF Urine Culture Reflexed (NO) Urine Glucose (NEGATIVE) mg/dL Urine HCG, Qual (Negative) Urine Opiates Level (NEGATIVE) Ur Methadone (NEGATIVE) Urine Barbiturates (NEGATIVE) Ur Phencyclidine (PCP) (NEGATIVE) Urine Amphetamine (NEGATIVE) U Benzodiazepine Level (NEGATIVE) Urine Cocaine (NEGATIVE) Urine Marijuana (THC) (NEGATIVE) Ethyl Alcohol (0-10) mg/dL SARS-CoV-2 (PCR) (NEGATIVE) 01/05/21 01/05/21 01/05/21 Range/Units 14:10 14:10 14:10 WBC (4.0-10.5) K/mm3 RBC (4.1-5.4) M/mm3 Hgb (12.0-16.0) gm/dl Hct (35-47) % MCV (78-100) fl MCH (26-32) pg MCHC (32-36) g/dl RDW (11.5-14.0) % Plt Count (150-450) K/mm3 MPV (7.5-11.0) fl Gran % (36.0-66.0) % Eos # (Auto) (0-0.5) Absolute Lymphs (auto) (1.0-4.6) Absolute Monos (auto) (0.0-1.3) Lymphocytes % (24.0-44.0) % Monocytes % (0.0-12.0) % Eosinophils % (0.00-5.0) % Basophils % (0.0-0.4) % Absolute Granulocytes (1.4-6.9) Basophils # (0-0.4) Sodium (137-145) mmol/L Potassium (3.5-5.1) mmol/L Chloride (98-107) mmol/L Carbon Dioxide (22-30) mmol/L Anion Gap (5-15) MEQ/L BUN (7-17) mg/dL Creatinine (0.52-1.04) mg/dL Estimated GFR ML/MIN Glucose (74-106) mg/dL Lactic Acid (0.4-2.0) Calcium (8.4-10.2) mg/dL Magnesium (1.6-2.3) mg/dL Total Bilirubin (0.2-1.3) mg/dL AST (14-36) U/L ALT (0-35) U/L Alkaline Phosphatase (38-126) U/L Troponin I 0.057 H* (0.000-0.034) ng/mL NT-Pro-B Natriuret Pep (0-450) pg/mL Serum Total Protein (6.3-8.2) g/dL Albumin (3.5-5.0) g/dL Amylase (30-110) U/L Lipase (23-300) U/L Free T4 0.98 (0.76-1.46) ng/dL TSH 3rd Generation (0.47-4.68) mIU/L Urine Color (YELLOW) Urine Appearance (CLEAR) Urine pH (5-6) Ur Specific [place] (1.005-1.025) Urine Protein (Negative) Urine Ketones (NEGATIVE) Urine Blood (0-5) Rommel/ul Urine Nitrite (NEGATIVE) Urine Bilirubin (NEGATIVE) Urine Urobilinogen (0-1) mg/dL Ur Leukocyte Esterase (NEGATIVE) Urine WBC (Auto) (0-5) /HPF Urine RBC (Auto) (0-2) /HPF U Epithel Cells (Auto) (FEW) /HPF Urine Bacteria (Auto) (NEGATIVE) /HPF Urine Culture Reflexed (NO) Urine Glucose (NEGATIVE) mg/dL Urine HCG, Qual (Negative) Urine Opiates Level (NEGATIVE) Ur Methadone (NEGATIVE) Urine Barbiturates (NEGATIVE) Ur Phencyclidine (PCP) (NEGATIVE) Urine Amphetamine (NEGATIVE) U Benzodiazepine Level (NEGATIVE) Urine Cocaine (NEGATIVE) Urine Marijuana (THC) (NEGATIVE) Ethyl Alcohol < 10 (0-10) mg/dL SARS-CoV-2 (PCR) (NEGATIVE) 01/05/21 01/05/21 Range/Units 14:10 14:10 WBC 21.0 H (4.0-10.5) K/mm3 RBC 6.51 H* (4.1-5.4) M/mm3 Hgb 17.5 H (12.0-16.0) gm/dl Hct 50.5 H (35-47) % MCV 77.6 L (78-100) fl MCH 26.9 (26-32) pg MCHC 34.7 (32-36) g/dl RDW 15.3 H (11.5-14.0) % Plt Count 379 (150-450) K/mm3 MPV 9.8 (7.5-11.0) fl Gran % 81.5 H (36.0-66.0) % Eos # (Auto) 0 (0-0.5) Absolute Lymphs (auto) 2.38 (1.0-4.6) Absolute Monos (auto) 1.52 H (0.0-1.3) Lymphocytes % 11.3 L (24.0-44.0) % Monocytes % 7.2 (0.0-12.0) % Eosinophils % 0.0 (0.00-5.0) % Basophils % 0.0 (0.0-0.4) % Absolute Granulocytes 17.08 H (1.4-6.9) Basophils # 0.01 (0-0.4) Sodium 132 L (137-145) mmol/L Potassium 3.2 L (3.5-5.1) mmol/L Chloride 95 L (98-107) mmol/L Carbon Dioxide 19 L (22-30) mmol/L Anion Gap 20.7 H (5-15) MEQ/L BUN 18 H (7-17) mg/dL Creatinine 0.86 (0.52-1.04) mg/dL Estimated GFR > 60.0 ML/MIN Glucose 120 H (74-106) mg/dL Lactic Acid (0.4-2.0) Calcium 8.7 (8.4-10.2) mg/dL Magnesium (1.6-2.3) mg/dL Total Bilirubin 2.60 H (0.2-1.3) mg/dL AST 41 H (14-36) U/L ALT 20 (0-35) U/L Alkaline Phosphatase 224 H (38-126) U/L Troponin I (0.000-0.034) ng/mL NT-Pro-B Natriuret Pep (0-450) pg/mL Serum Total Protein 8.0 (6.3-8.2) g/dL Albumin 4.3 (3.5-5.0) g/dL Amylase 57 (30-110) U/L Lipase 70 (23-300) U/L Free T4 (0.76-1.46) ng/dL TSH 3rd Generation < 0.015 L (0.47-4.68) mIU/L Urine Color (YELLOW) Urine Appearance (CLEAR) Urine pH (5-6) Ur Specific [place] (1.005-1.025) Urine Protein (Negative) Urine Ketones (NEGATIVE) Urine Blood (0-5) Rommel/ul Urine Nitrite (NEGATIVE) Urine Bilirubin (NEGATIVE) Urine Urobilinogen (0-1) mg/dL Ur Leukocyte Esterase (NEGATIVE) Urine WBC (Auto) (0-5) /HPF Urine RBC (Auto) (0-2) /HPF U Epithel Cells (Auto) (FEW) /HPF Urine Bacteria (Auto) (NEGATIVE) /HPF Urine Culture Reflexed (NO) Urine Glucose (NEGATIVE) mg/dL Urine HCG, Qual (Negative) Urine Opiates Level (NEGATIVE) Ur Methadone (NEGATIVE) Urine Barbiturates (NEGATIVE) Ur Phencyclidine (PCP) (NEGATIVE) Urine Amphetamine (NEGATIVE) U Benzodiazepine Level (NEGATIVE) Urine Cocaine (NEGATIVE) Urine Marijuana (THC) (NEGATIVE) Ethyl Alcohol (0-10) mg/dL SARS-CoV-2 (PCR) (NEGATIVE) - Progress Progress: improved, re-examined Progress Note: 01/05/21 16:29 45 years old is evaluated for fever chills, tachycardia, shortness of breath, vomiting. Patient was tachypneic tachycardic on presentation, given fluid bolus. Patient does have history of hypothyroidism and has not been taking methimazole/metoprolol because of vomiting. She is given fluid bolus along with Tylenol and Ativan, reevaluation she is feeling better. She is also given propranolol and dose of PTU and will continue with PTU with inpatient admission as well. Chest x-ray negative for any acute cardiopulmonary findings. She has a elevated lactate and a white count of 21 with hypokalemia and hypomagnesemia for which she is getting replacement. She is started on broad-spectrum antibiotics as well. I will obtain CTA chest along with CT abdomen pelvis with contrast which is pending now. Discussed with Dr. Montoya who is a regular PCP for the patient and has seen her in a similar situation in the past with thyroid storm. We will continue with above treatment and patient is being admitted to ICU. Discussed with Dr.: Bashir Will see patient in: hospital (full admit) Counseled pt/family regarding: lab results, diagnosis, need for follow-up, rad results, smoking cessation - Departure Departure Disposition: In-patient Admission Clinical Impression: Hypokalemia, Hypomagnesemia Thyroid crisis or storm Qualifiers: Thyrotoxicosis type: unspecified thyrotoxicosis type Qualified Code(s): E05.91 - Thyrotoxicosis, unspecified with thyrotoxic crisis or storm Sepsis Qualifiers: Sepsis type: sepsis due to unspecified organism Sepsis acute organ dysfunction status: unspecified Qualified Code(s): A41.9 - Sepsis, unspecified organism Condition: Good Critical Care Time: Yes Critical Care Time(excluding separately billable procedures): Critical 75-104 mins Referrals: DEMI ARANGO DO [Primary Care Provider] -
--- NOTE | 2021-01-05 15:02 | XRAY ---
Indication: Short of breath. Comparison: None Portable chest demonstrates normal heart and lungs. Bony thorax intact with mild/moderate degenerative changes.
[2021-01-05] MEDS ORDERED: Zosyn 3.375 GM Vial 3.375 GM in Sodium Chloride 100ML MINI-BAG PLUS 100 ML IV ONE ×2 (15:05→21:51)
[2021-01-05 15:09] LABS: ALBUMIN 4.3 g/dL (3.5-5.0); ALKALINE PHOSPHATASE 224 U/L (38-126); AMYLASE 57 U/L (30-110); ANION GAP 20.7 MEQ/L (5-15); BLOOD UREA NITROGEN 18 mg/dL (7-17); CHLORIDE 95 mmol/L (98-107); Calcium 8.7 mg/dL (8.4-10.2); Carbon Dioxide 19 mmol/L (22-30); Creatinine 1 0.86 mg/dL (0.52-1.04); EST GLOMERULAR FILTRATION RATE > 60.0 ML/MIN; Glucose 120 mg/dL (74-106); LIPASE 70 U/L (23-300); Potassium 3.2 mmol/L (3.5-5.1); SGOT/AST 41 U/L (14-36); SGPT/ALT 20 U/L (0-35); SODIUM 132 mmol/L (137-145); TSH, 3RD Generation < 0.015 mIU/L (0.47-4.68)
[2021-01-05] MEDS ORDERED: Klor Con 10 MEQ PO ONE ×2 (15:19→15:44)
[2021-01-05] MEDS ORDERED: Zosyn 3.375 GM Vial IV ONE ×2 (15:19→23:28)
[2021-01-05] MEDS ORDERED: Sodium Chloride 100ML MINI-BAG PLUS 100 ML IV ONE ×2 (15:20→23:29)
[2021-01-05] MEDS ORDERED: Inderal 20 MG PO STA (15:27)
[2021-01-05] MEDS: Magnesium 1 Gm / 100 Ml D5W*** 100 ML IV SCH ×2 (15:47→20:14)
[2021-01-05] MEDS ORDERED: LEVOFLOXACIN 750MG/150ML D5W 750 MG/150 ML BAG IV STA (16:00)
[2021-01-05 16:03] LABS: Appearance SLIGHTLY CLOUDY (CLEAR); Bacteria RARE /HPF (NEGATIVE); Bilirubin NEGATIVE (NEGATIVE); Blood SMALL Ery/ul (0-5); Epithelial Cells RARE /HPF (FEW); Glucose NEGATIVE (NEGATIVE); Ketones NEGATIVE (NEGATIVE); Leukocyte Esterase NEGATIVE (NEGATIVE); Nitrite NEGATIVE (NEGATIVE); Protein,Urine Dip 100 (Negative); RBC 0-2 /HPF (0-2); Specific Gravity 1.003 (1.005-1.025); Urobilinogen NEGATIVE mg/dL (0-1); WBC 0-2 /HPF (0-5)
[2021-01-05] MEDS ORDERED: LEVOFLOXACIN 750MG/150ML D5W 750 MG/150 ML BAG IV ONE (16:04)
[2021-01-05 16:13] LABS: Amphetamine,Urine NEGATIVE (NEGATIVE); Barbiturate,Urine NEGATIVE (NEGATIVE); Benzodiazepine,Urine NEGATIVE (NEGATIVE); Cocaine,Urine NEGATIVE (NEGATIVE); Methadone,Urine POSITIVE (NEGATIVE); Opiate,Urine POSITIVE (NEGATIVE); PCP,Urine NEGATIVE (NEGATIVE); THC,Urine POSITIVE (NEGATIVE)
[2021-01-05] MEDS ORDERED: TORAdol 30 mg Injection IV ONE (16:14)
[2021-01-05] MEDS ORDERED: TORAdol 30 mg Injection ONE (16:17)
[2021-01-05] MEDS ORDERED: PTU 50MG PO STA (16:28)
--- NOTE | 2021-01-05 17:13 | XRAY ---
Indication: Short of breath, fever, headache, dehydration, and vomiting. Multiple contiguous axial images obtained through the chest using 100 cc Isovue-370 contrast and PE protocol. Comparison: None There is good opacification of the pulmonary arteries to include the lobar and segmental branches. No pulmonary embolus. Heart not enlarged. Aorta is normal in course and caliber. Small mediastinal and right suprahilar calcified nodes. No pathologic mediastinal/hilar lymphadenopathy. Lungs are inflated with incidental small right upper lobe calcified granuloma. No suspicious pulmonary mass, infiltrate, or effusion. Bony thorax intact with minimal degenerative changes throughout the spine. CT abdomen/pelvis reported separately. Impression: 1. Negative pulmonary embolus. No acute cardiopulmonary abnormalities. 2. Incidental old granulomatous disease.
--- NOTE | 2021-01-05 17:17 | XRAY ---
Indication: Short of breath, fever, headache, dehydration, and vomiting. Multiple contiguous axial images obtained through the abdomen and pelvis using 100 cc Isovue-370 contrast. Comparison: November 29, 2020 CT chest reported separately. Noncontrasted stomach and bowel loops are nonobstructed with normal appendix. No free fluid/air. Again nonobstructing right renal punctate calculus, splenic calcified granuloma, and cholecystectomy. Liver demonstrates mild fatty attenuation not appreciated on previous noncontrasted exam. Remaining liver, pancreas, spleen, adrenal glands, kidneys, ureters, bladder, and uterus are unremarkable. Stable minimal distal aortic calcifications without aneurysm. No pathologic retroperitoneal lymphadenopathy. Impression: 1. Stable nonobstructing right renal punctate calculus and mild fatty liver. 2. Remaining CT abdomen/pelvis with contrast exam is again negative.
[2021-01-05 20:39] LABS: Slide Review 1 YES
[2021-01-05] MEDS ORDERED: MORPHINE SULFATE 2 MG INJ IV PRN (21:51)
[2021-01-05] MEDS: Sodium Chloride 0.9% W/ 20 mEq KCl/LITER 1,000 ML IV SCH (23:45)
[2021-01-05] MEDS: PTU 50MG PO SCH (23:46)
[2021-01-06] MEDS: Zosyn 3.375 GM Vial 3.375 GM in Sodium Chloride 100ML MINI-BAG PLUS 100 ML IV SCH ×5 (00:10→17:01)
[2021-01-06] MEDS: PTU 50MG PO SCH (00:15)
[2021-01-06] MEDS: Neurontin 400 MG PO SCH ×4 (00:21→20:33)
[2021-01-06] MEDS: Zanaflex 4 MG PO SCH ×3 (00:21→20:23)
[2021-01-06] MEDS ORDERED: Zosyn 3.375 GM Vial IV ONE (00:28)
[2021-01-06] MEDS ORDERED: Sodium Chloride 100ML MINI-BAG PLUS 100 ML IV ONE (00:29)
[2021-01-06] MEDS ORDERED: DOLOPHINE 10MG Tablet PO ONE (00:36)
[2021-01-06 05:51] LABS: Hemoglobin 15.2 gm/dl (12.0-16.0); Mean Corpuscular Hemoglobin 26.8 pg (26-32); Mean Platelet Volume 9.9 fl (7.5-11.0); Platelet Count 266 K/mm3 (150-450); Red Blood Count 5.68 M/mm3 (4.1-5.4); Red Cell Distribution Width 15.1 % (11.5-14.0)
[2021-01-06] MEDS: Sodium Chloride 0.9% W/ 20 mEq KCl/LITER 1,000 ML IV SCH (05:51)
[2021-01-06 06:00] LABS: ALBUMIN 3.5 g/dL (3.5-5.0); ALKALINE PHOSPHATASE 151 U/L (38-126); ANION GAP 13.2 MEQ/L (5-15); BLOOD UREA NITROGEN 18 mg/dL (7-17); CHLORIDE 102 mmol/L (98-107); Calcium 8.6 mg/dL (8.4-10.2); Carbon Dioxide 23 mmol/L (22-30); Creatinine 1 0.81 mg/dL (0.52-1.04); EST GLOMERULAR FILTRATION RATE > 60.0 ML/MIN; Glucose 84 mg/dL (74-106); MAGNESIUM 2.3 mg/dL (1.6-2.3); Potassium 4.3 mmol/L (3.5-5.1); SGOT/AST 37 U/L (14-36); SGPT/ALT 18 U/L (0-35); SODIUM 135 mmol/L (137-145); Total Protein 6.4 g/dL (6.3-8.2); Uric Acid 3.9 mg/dL (2.6-6.0)
[2021-01-06 07:42] LABS: BAND 1 % (0.0-2.0); Eosinophil 1 % (0.00-3.0); Hypochromia 1+; Lymphocytes 26 % (24-44); Monocyte 7 % (0.0-12.0); Neutrophils 65 % (36.0-66.0); Platelet Estimate NORMAL (NORMAL); Total Cells Counted 100
[2021-01-06 07:44] LABS: Absolute Neutrophil Ct (ANC) 9.23 (1.4-6.9)
[2021-01-06] MEDS: Inderal 20 MG PO SCH ×2 (07:48→07:49)
[2021-01-06] MEDS: Sodium Chloride 0.9% 1000 ML 1,000 ML IV SCH ×2 (09:24→21:50)
[2021-01-06] MEDS: MELOXICAM PO SCH (09:24)
[2021-01-06] MEDS: Toprol-Xl 25MG Tablets PO SCH (09:25)
[2021-01-06] MEDS: Protonix 40MG Tablet PO SCH (09:25)
[2021-01-06] MEDS: NON-FORMULARY ITEM PO SCH ×2 (09:25→21:41)
[2021-01-06] MEDS: ENOXAPARIN SODIUM SQ SCH (09:43)
[2021-01-06] MEDS: DOLOPHINE 10MG Tablet PO SCH (09:43)
[2021-01-06] MEDS ORDERED: METHIMAZOLE PO SCH (10:00)
[2021-01-06] MEDS ORDERED: PROTONIX 40 MG IV IV SCH (10:00)
[2021-01-06] MEDS ORDERED: DOLOPHINE 10MG Tablet PO SCH (10:00)
[2021-01-06] MEDS ORDERED: PROVENTIL 2.5 MG/3 ML NEB IH ONE (13:25)
[2021-01-06] MEDS ORDERED: ZOFRAN ODT 4 MG PO PRN (13:26)
[2021-01-06] MEDS ORDERED: PROVENTIL 2.5 MG/3 ML NEB IH PRN (13:27)
[2021-01-06] MEDS: TYLENOL 325 MG PO PRN ×2 (13:34→21:44)
[2021-01-06] MEDS ORDERED: LEVOFLOXACIN 750MG/150ML D5W 750 MG/150 ML BAG IV SCH (16:00)
--- NOTE | 2021-01-06 17:35 | PCM.HP ---
History of Present Illness - Chief Complaint Chief Complaint: sepsis, thyroid storm, hypomagnesmia, hypokalemia, dehydration History of Present Illness: is a 45 year old female of mine with recurrent admissions for overactive thyroid symptoms. She follows with Dr Thapa who plans ablation of thyroid. She is not tolerating meds. PTU caused rash and TYapazole 40 bid causes N/V. SHe missed her most recent appt with him due to not feeling well N/V and presented to ER [facility] ,admotted to Medsurg . Elevated WBC and elevated lactic acid. C/O productive cough and young son home with ear ache and fever last week. Medications & Allergies Home Medications: Home Medication List Tizanidine HCl 4 mg [Zanaflex 4 MG] 2 mg PO BID 07/28/20 [History Confirmed 01/05/21] Methimazole 40 mg PO BID 11/29/20 [History Confirmed 01/05/21] Metoprolol Succinate 25 mg Xl* [Toprol-Xl 25MG Tablets] 25 mg PO DAILY 11/29/20 [History Confirmed 01/05/21] Ergocalciferol (Vitamin D2) [Vitamin D2] 50,000 unit PO WEEKLY 01/05/21 [History Confirmed 01/05/21] Gabapentin [Neurontin] 800 mg PO TID 01/05/21 [History Confirmed 01/05/21] Meloxicam 7.5 mg PO DAILY 01/05/21 [History Confirmed 01/05/21] Methadone HCl 130 mg PO DAILY 01/05/21 [History Confirmed 01/05/21] PANTOPRAZOLE 40 mg Tablet [Protonix 40MG Tablet] 40 mg PO QAM 01/05/21 [History Confirmed 01/05/21] Allergies/Adverse Reactions: Allergies Allergy/AdvReac Type Severity Reaction Status Date / Time sulfamethoxazole Allergy Intermediate Hives Verified 01/05/21 22:48 [From ] trimethoprim [From ] Allergy Intermediate Hives Verified 01/05/21 22:48 - Past Medical History Past Medical History: Yes Neurological History: Migraines ENT History: No Pertinent History Cardiac History: Hypertension Respiratory History: No Pertinent History Endocrine Medical History: Hypothyroidism Musculoskelatal History: No Pertinent History GI Medical History: No Pertinent History History: No Pertinent History Pyscho-Social History: Anxiety Reproductive Disorders: No Pertinent History Comment: Chronic pain requiring methadone from the [facility]. - Female History Hx Last Menstrual Period: unknown Are you now?: No - Past Surgical History Past Surgical History: Yes Neuro Surgical History: No Pertinent History Cardiac History: No Pertinent History Respiratory Surgery: No Pertinent History GI Surgical History: Cholecystectomy Genitourinary Surgical Hx: Other Musculskeletal Surgical Hx: No Pertinent History Female Surgical History: No Pertinent History Other Surgical History: carpal tunner bilat. kidney stones last stone 2 months ago required stent that has been removed since then. - Social History Smoking Status: Current every day smoker How long have you smoked: 15 years Exposure to second hand smoke: Yes Alcohol: None Drug Use: marijuana - Physical Exam Vital Signs: Vital Signs - 24 hr Temp Pulse Resp BP Pulse Ox 01/06/21 16:00 97.1 F 50 L 18 128/75 96 01/06/21 14:00 48 L 18 92 L 01/06/21 13:31 58 L 20 93 L 01/06/21 12:00 97.9 F 50 L 13 114/57 97 01/06/21 10:00 55 L 18 92 L 01/06/21 07:55 93 L 01/06/21 07:50 54 L 01/06/21 07:41 97.9 F 54 L 14 143/84 93 L 01/06/21 07:25 87 L 01/06/21 07:19 97 01/06/21 07:00 97.9 F 54 L 14 143/84 93 L 01/06/21 05:38 53 L 15 118/73 95 01/06/21 05:00 52 L 14 103/66 93 L 01/06/21 04:00 98.4 F 47 L 18 121/70 95 01/06/21 03:00 49 L 14 93/81 99 01/06/21 02:00 55 L 15 81/49 94 L 01/06/21 01:00 56 L 16 106/72 90 L 01/05/21 23:54 52 L 19 145/90 95 01/05/21 23:20 95 01/05/21 23:18 65 25 H 146/100 95 01/05/21 23:09 92 L 01/05/21 23:00 97.8 F 66 22 113/98 92 L 01/05/21 22:28 97.8 F 75 25 H 103/85 98 01/05/21 20:39 62 137/74 97 01/05/21 20:01 94 L 01/05/21 19:42 59 L 18 147/72 97 Results - Labs Lab/Micro Results: Lab Results-Last 24 Hours 01/05/21 01/05/21 01/05/21 Range/Units 14:10 17:20 18:10 WBC (4.0-10.5) K/mm3 RBC (4.1-5.4) M/mm3 Hgb (12.0-16.0) gm/dl Hct (35-47) % MCV (78-100) fl MCH (26-32) pg MCHC (32-36) g/dl RDW (11.5-14.0) % Plt Count (150-450) K/mm3 MPV (7.5-11.0) fl Absolute Granulocytes (1.4-6.9) Segmented Neutrophils (36.0-66.0) % Band Neutrophils (0.0-2.0) % Lymphocytes (Manual) (24-44) % Monocytes (Manual) (0.0-12.0) % Eosinophils (Manual) (0.00-3.0) % Hypochromia Platelet Estimate (NORMAL) RBC Morphology Sodium (137-145) mmol/L Potassium (3.5-5.1) mmol/L Chloride (98-107) mmol/L Carbon Dioxide (22-30) mmol/L Anion Gap (5-15) MEQ/L BUN (7-17) mg/dL Creatinine (0.52-1.04) mg/dL Estimated GFR ML/MIN Glucose (74-106) mg/dL POC Glucometer (74 to 106) mg/dL Uric Acid (2.6-6.0) mg/dL Calcium (8.4-10.2) mg/dL Magnesium (1.6-2.3) mg/dL Total Bilirubin (0.2-1.3) mg/dL AST (14-36) U/L ALT (0-35) U/L Alkaline Phosphatase (38-126) U/L Troponin I 0.059 H* (0.000-0.034) ng/mL Serum Total Protein (6.3-8.2) g/dL Albumin (3.5-5.0) g/dL SARS-CoV-2 (PCR) NEGATIVE (NEGATIVE) Slides for Path Review YES 01/05/21 01/05/21 01/05/21 Range/Units 20:30 22:26 23:50 WBC (4.0-10.5) K/mm3 RBC (4.1-5.4) M/mm3 Hgb (12.0-16.0) gm/dl Hct (35-47) % MCV (78-100) fl MCH (26-32) pg MCHC (32-36) g/dl RDW (11.5-14.0) % Plt Count (150-450) K/mm3 MPV (7.5-11.0) fl Absolute Granulocytes (1.4-6.9) Segmented Neutrophils (36.0-66.0) % Band Neutrophils (0.0-2.0) % Lymphocytes (Manual) (24-44) % Monocytes (Manual) (0.0-12.0) % Eosinophils (Manual) (0.00-3.0) % Hypochromia Platelet Estimate (NORMAL) RBC Morphology Sodium (137-145) mmol/L Potassium (3.5-5.1) mmol/L Chloride (98-107) mmol/L Carbon Dioxide (22-30) mmol/L Anion Gap (5-15) MEQ/L BUN (7-17) mg/dL Creatinine (0.52-1.04) mg/dL Estimated GFR ML/MIN Glucose (74-106) mg/dL POC Glucometer 78 (74 to 106) mg/dL Uric Acid (2.6-6.0) mg/dL Calcium (8.4-10.2) mg/dL Magnesium (1.6-2.3) mg/dL Total Bilirubin (0.2-1.3) mg/dL AST (14-36) U/L ALT (0-35) U/L Alkaline Phosphatase (38-126) U/L Troponin I 0.048 H* 0.038 H* (0.000-0.034) ng/mL Serum Total Protein (6.3-8.2) g/dL Albumin (3.5-5.0) g/dL SARS-CoV-2 (PCR) (NEGATIVE) Slides for Path Review 01/06/21 01/06/21 01/06/21 Range/Units 05:45 05:45 05:45 WBC 14.0 H (4.0-10.5) K/mm3 RBC 5.68 H (4.1-5.4) M/mm3 Hgb 15.2 (12.0-16.0) gm/dl Hct 46.0 (35-47) % MCV 81.0 (78-100) fl MCH 26.8 (26-32) pg MCHC 33.0 (32-36) g/dl RDW 15.1 H (11.5-14.0) % Plt Count 266 (150-450) K/mm3 MPV 9.9 (7.5-11.0) fl Absolute Granulocytes 9.23 H (1.4-6.9) Segmented Neutrophils 65 (36.0-66.0) % Band Neutrophils 1 (0.0-2.0) % Lymphocytes (Manual) 26 (24-44) % Monocytes (Manual) 7 (0.0-12.0) % Eosinophils (Manual) 1 (0.00-3.0) % Hypochromia 1+ Platelet Estimate NORMAL (NORMAL) RBC Morphology ABNORMAL Sodium 135 L (137-145) mmol/L Potassium 4.3 D (3.5-5.1) mmol/L Chloride 102 (98-107) mmol/L Carbon Dioxide 23 (22-30) mmol/L Anion Gap 13.2 (5-15) MEQ/L BUN 18 H (7-17) mg/dL Creatinine 0.81 (0.52-1.04) mg/dL Estimated GFR > 60.0 ML/MIN Glucose 84 (74-106) mg/dL POC Glucometer (74 to 106) mg/dL Uric Acid 3.9 (2.6-6.0) mg/dL Calcium 8.6 (8.4-10.2) mg/dL Magnesium 2.3 (1.6-2.3) mg/dL Total Bilirubin 2.10 H (0.2-1.3) mg/dL AST 37 H (14-36) U/L ALT 18 (0-35) U/L Alkaline Phosphatase 151 H (38-126) U/L Troponin I 0.028 (0.000-0.034) ng/mL Serum Total Protein 6.4 (6.3-8.2) g/dL Albumin 3.5 (3.5-5.0) g/dL SARS-CoV-2 (PCR) (NEGATIVE) Slides for Path Review 01/06/21 Range/Units 07:09 WBC (4.0-10.5) K/mm3 RBC (4.1-5.4) M/mm3 Hgb (12.0-16.0) gm/dl Hct (35-47) % MCV (78-100) fl MCH (26-32) pg MCHC (32-36) g/dl RDW (11.5-14.0) % Plt Count (150-450) K/mm3 MPV (7.5-11.0) fl Absolute Granulocytes (1.4-6.9) Segmented Neutrophils (36.0-66.0) % Band Neutrophils (0.0-2.0) % Lymphocytes (Manual) (24-44) % Monocytes (Manual) (0.0-12.0) % Eosinophils (Manual) (0.00-3.0) % Hypochromia Platelet Estimate (NORMAL) RBC Morphology Sodium (137-145) mmol/L Potassium (3.5-5.1) mmol/L Chloride (98-107) mmol/L Carbon Dioxide (22-30) mmol/L Anion Gap (5-15) MEQ/L BUN (7-17) mg/dL Creatinine (0.52-1.04) mg/dL Estimated GFR ML/MIN Glucose (74-106) mg/dL POC Glucometer 80 (74 to 106) mg/dL Uric Acid (2.6-6.0) mg/dL Calcium (8.4-10.2) mg/dL Magnesium (1.6-2.3) mg/dL Total Bilirubin (0.2-1.3) mg/dL AST (14-36) U/L ALT (0-35) U/L Alkaline Phosphatase (38-126) U/L Troponin I (0.000-0.034) ng/mL Serum Total Protein (6.3-8.2) g/dL Albumin (3.5-5.0) g/dL SARS-CoV-2 (PCR) (NEGATIVE) Slides for Path Review Microbiology 01/05/21 15:41 Urine Culture - Preliminary Clean Catch Midstream NO GROWTH TO DATE Accuchecks Date 01/06/21 Date 01/05/21 Time 22:28 - Radiology Impressions Radiology Exams & Impressions: Radiology Procedures Category Date Time Status ABDOMEN AND PELVIS W CONTRAST [CT] Stat Exams 01/05/21 15:32 Completed CHEST 1 VIEW (PORTABLE) Stat Exams 01/05/21 14:06 Completed CHEST WITH CONTRAST [CT] Stat Exams 01/05/21 15:32 Completed ECHO W/2D AND DOPPLER [US] Routine Exams 01/06/21 09:00 Taken - Other Procedures and Tests Respiratory Therapy 01/05/21 21:51 Oxygen Nasal Cannula 3 lpm
[2021-01-06] MEDS ORDERED: Nicoderm CQ 21 MG TOP SCH ×2 (22:00)
[2021-01-07] MEDS: Zosyn 3.375 GM Vial 3.375 GM in Sodium Chloride 100ML MINI-BAG PLUS 100 ML IV SCH ×2 (00:13→05:39)
[2021-01-07 05:46] LABS: Absolute Neutrophil Ct (ANC) 4.42 (1.4-6.9); BASOPHIL % 0.5 % (0.0-0.4); Basophil (Absolute #) 0.04 (0-0.4); Eosinophil % 4.6 % (0.00-5.0); Eosinophil (Absolute #) 0.37 (0-0.5); Hematocrit 39.7 % (35-47); Lymphocyte (Absolute #) 2.68 (1.0-4.6); Lymphocytes % 33.2 % (24.0-44.0); Mean Cell Volume 83.2 fl (78-100); Mean Corpuscular Hemoglobin 27.3 pg (26-32); Mean Corpuscular Hgb Concent. 32.7 g/dl (32-36); Mean Platelet Volume 9.8 fl (7.5-11.0); Monocyte (Absolute #) 0.57 (0.0-1.3); Monocytes % 7.1 % (0.0-12.0); Neutrophil % 54.6 % (36.0-66.0); Platelet Count 211 K/mm3 (150-450); Red Blood Count 4.77 M/mm3 (4.1-5.4); White Blood Count 8.1 K/mm3 (4.0-10.5)
[2021-01-07 06:23] LABS: ALKALINE PHOSPHATASE 111 U/L (38-126); ANION GAP 11.1 MEQ/L (5-15); BLOOD UREA NITROGEN 13 mg/dL (7-17); CHLORIDE 107 mmol/L (98-107); Calcium 8.1 mg/dL (8.4-10.2); Carbon Dioxide 23 mmol/L (22-30); Creatinine 1 0.81 mg/dL (0.52-1.04); EST GLOMERULAR FILTRATION RATE > 60.0 ML/MIN; Glucose 81 mg/dL (74-106); Potassium 3.8 mmol/L (3.5-5.1); SGOT/AST 25 U/L (14-36); SGPT/ALT 16 U/L (0-35); SODIUM 137 mmol/L (137-145); T4 (Thyroxine) 5.42 ug/dL (5.53-10.96); Total Protein 5.6 g/dL (6.3-8.2)
[2021-01-07] MEDS: Sodium Chloride 0.9% 1000 ML 1,000 ML IV SCH (07:22)
[2021-01-07 08:06] VITALS: BP 145/88; O2SAT 98
[2021-01-07] MEDS: Zanaflex 4 MG PO SCH (08:15)
[2021-01-07] MEDS: Neurontin 400 MG PO SCH (08:15)
[2021-01-07] MEDS: TYLENOL 325 MG PO PRN (08:16)
[2021-01-07] MEDS: DOLOPHINE 10MG Tablet PO SCH (08:16)
[2021-01-07] MEDS: Protonix 40MG Tablet PO SCH (08:16)
[2021-01-07] MEDS: MELOXICAM PO SCH (08:16)
[2021-01-07] MEDS: NON-FORMULARY ITEM PO SCH (08:18)
[2021-01-07 08:42] VITALS: PULSE 60
[2021-01-07] MEDS: Toprol-Xl 25MG Tablets PO SCH (08:58)
[2021-01-07] MEDS: ENOXAPARIN SODIUM SQ SCH (08:59)
[2021-01-08 07:15] LABS: T4,Free (Direct) 0.62 ng/dL (0.82-1.77)
[2021-01-09] MEDS ORDERED: VITAMIN D2 PO SCH (10:00)
--- NOTE | 2021-01-09 13:42 | ECHO ---
Transthoracic echocardiographic examination and color Doppler was done on 01/06/2021. INDICATION: Elevated troponin. IMPRESSION: 1) NO REGIONAL WALL MOTION ABNORMALITY. ESTIMATED GLOBAL LEFT VENTRICULAR EJECTION FRACTION OF AROUND 60%. 2) TRACE MITRAL REGURGITATION. 3) TRACE TRICUSPID REGURGITATION. RIGHT VENTRICULAR SYSTOLIC PRESSURE OF 39 MMHg. The left ventricle is visualized and demonstrated adequate motion of all the segments. Estimated global left ventricular ejection fraction of around 60 to 65%. The left ventricular thickness is normal. The mitral valve is seen and this opens adequately. No significant mitral regurgitation is seen. Left atrium is normal. The aortic valve opens adequately. There is no significant gradient across the left ventricular outflow tract. The right side chambers are normal. There is trace tricuspid regurgitation. The right ventricular systolic pressure of 39 mmHg
--- NOTE | 2021-01-11 10:47 | DS ---
DISCHARGE DIAGNOSES: 1) THYROID STORM. 2) VIRAL GASTROENTERITIS. 3) HYPERTENSION. HOSPITAL COURSE: The patient is a 45 year-old white female who became ill. She reports that her son had been sick with what she thought was upper respiratory infection and otitis and began having problems with vomiting, diarrhea and broke out in a rash. She reports that the patient, herself, is again having problems with vomiting as well. She was unable to keep her methimazole down for her hyperthyroid issues and she began having problems with symptoms of thyroid storm. The patient was brought into the emergency room and treated in the hospital with IV antibiotics for what was thought to be a bacterial infection with the white count initially being fairly high and did come down with treatment. The patient's heart rate has been somewhat low and we have been holding her labetalol due to her heart rate being down in the high 30's while she is sleeping and while at rest otherwise in bed she is running in the 50's. She has not been taking the Lopressor since admission and she was instructed not to take that at home either. She is however to start taking the methimazole which is 40 mg twice a day. She has an appointment to see her reading tutor for possible thyroid ablation treatment to help with the hyperthyroid issue. She will be seeing Dr. Thomas in her office in the next week or so for follow up. The patient is otherwise requesting to go home today and I feel she is safe enough to be able to do so today as she has been able to eat and drink fine and being able to ambulate without difficulties. The most recent laboratory studies on the day of 01/07/2021 showed glucose of 81, BUN 13, creatinine 0.81. Liver enzymes were normal. Her thyroxine level was slightly low at 5.42 on her current medications with 5.53 being the lowest number in our lab. Her lactic acid was down to 1.0. Her CBC was normal. The patient was instructed to call if she has any problems in the interim but will be able to discharge home today.
== END 2021-01-07 11:16 | disposition home or self-care (01) | DRG 645 ==
LOC: ED 13:59 → ICU 21:48
PROVIDERS: ADMIT Family Medicine; ATTEND Family Medicine
DX: E05.91 Thyrotoxicosis, unspecified with thyrotoxic crisis or storm (principal); A08.4 Viral intestinal infection, unspecified; I10 Essential (primary) hypertension; R11.2 Nausea with vomiting, unspecified; R53.1 Weakness; H05.20 Unspecified exophthalmos; R07.9 Chest pain, unspecified; R10.9 Unspecified abdominal pain; E83.42 Hypomagnesemia; E87.6 Hypokalemia; E86.0 Dehydration; Z79.899 Other long term (current) drug therapy; Z20.828 Contact with and (suspected) exposure to other viral communicable diseases
CPT/HCPCS: 36000; 36415; 71045; 71260; 74177; 80053; 80307; 81001; 82150; 82947; 83605; 83690; 83735; 83880; 84436; 84439; 84443; 84479; 84484; 84550; 84703; 85025; 87040; 87086; 93005; 93306; 94640; 94762; 96360; 96365; 96366; 96374; 96375; 99285; 99291; 99292; J1650; J1885; J1956; J2060; J2270; J2405; J3475; J7609; Q0162; U0003; A9270-GY; G0480

== ENCOUNTER 2021-02-22 10:13 | Observation (INO) | payer OTHER ==
[2021-02-22] MEDS ORDERED: Ativan 2 MG/1 ML VIAL IV STA (10:25)
[2021-02-22] MEDS ORDERED: Sodium Chloride 0.9% 1000 ML 1,000 ML ONE (10:27)
[2021-02-22] MEDS ORDERED: Sodium Chloride 0.9% 1000 ML 1,000 ML IV SCH ×2 (10:30→14:59)
[2021-02-22 10:31] LABS: Absolute Neutrophil Ct (ANC) 5.69 (1.4-6.9); BASOPHIL % 0.5 % (0.0-0.4); Basophil (Absolute #) 0.05 (0-0.4); Eosinophil % 5.6 % (0.00-5.0); Eosinophil (Absolute #) 0.53 (0-0.5); Hematocrit 43.9 % (35-47); Hemoglobin 14.2 gm/dl (12.0-16.0); Lymphocyte (Absolute #) 2.53 (1.0-4.6); Lymphocytes % 26.7 % (24.0-44.0); Mean Cell Volume 87.6 fl (78-100); Mean Corpuscular Hemoglobin 28.3 pg (26-32); Mean Corpuscular Hgb Concent. 32.3 g/dl (32-36); Mean Platelet Volume 9.9 fl (7.5-11.0); Monocyte (Absolute #) 0.69 (0.0-1.3); Monocytes % 7.3 % (0.0-12.0); Neutrophil % 59.9 % (36.0-66.0); Platelet Count 343 K/mm3 (150-450); Red Blood Count 5.01 M/mm3 (4.1-5.4); Red Cell Distribution Width 15.7 % (11.5-14.0); White Blood Count 9.5 K/mm3 (4.0-10.5)
[2021-02-22] MEDS ORDERED: Calcium Gluconate 10% 1000 MG IV ONE ×3 (10:47→23:48)
--- NOTE | 2021-02-22 10:54 | ERPHSYRPT ---
- History of Present Illness Time Seen by Provider: 02/22/21 10:20 Source: patient Exam Limitations: no limitations Patient Subjective Stated Complaint: pt here for sob and hand spasms, that started last night. pt was given resp treatment in route with zofran. she has her thyroid removed last week, Triage Nursing Assessment: pt alert, resp easy, skin w/d/p. abd soft, face mask applied, has dry cough, pt has spasms to hands and face, [facility], and emtional support given, she has steri strips to neck and incision wel approximated Physician History: Patient is a 45-year-old female presents to our ED via EMS for evaluation of shortness of breath stridor and extremity spasms. Patient advises that she had a thyroidectomy procedure performed last week. Patient symptoms started last night. Symptoms are progressive. Patient was given racemic epi and 125 mg of Solu-Medrol in route via EMS. Patient states this improves her symptomology. Patient was also administered Zofran. Patient feels much better at this time. Patient advises that she currently requires methadone. Patient did not take her methadone today. Patient appears to be very anxious. No active pain. Patient is complaining of spasm sensations in her extremities. No nausea or vomiting. No diarrhea. No rash. No chest pain. Symptoms are mild to moderate in intensity. No specific worsening or improving factors. Timing/Duration: yesterday Severity: moderate Modifying Factors: Improves With: nothing Associated Symptoms: shortness of breath Allergies/Adverse Reactions: sulfamethoxazole [From Febra] Allergy (Intermediate, Verified 02/22/21 10:24) Hives trimethoprim [From Febra] Allergy (Intermediate, Verified 02/22/21 10:24) Hives Home Medications: Tizanidine HCl 4 mg [Zanaflex 4 MG] 2 mg PO BID 07/28/20 [History] Methimazole 40 mg PO BID 11/29/20 [History] Ergocalciferol (Vitamin D2) [Vitamin D2] 50,000 unit PO WEEKLY 01/05/21 [History] Gabapentin [Neurontin] 800 mg PO TID 01/05/21 [History] Meloxicam 7.5 mg PO DAILY 01/05/21 [History] Methadone HCl 130 mg PO DAILY 01/05/21 [History] PANTOPRAZOLE 40 mg Tablet [Protonix 40MG Tablet] 40 mg PO QAM 01/05/21 [History] Hx Tetanus, Diphtheria Vaccination/Date Given: No Hx Influenza Vaccination/Date Given: No Hx Pneumococcal Vaccination/Date Given: No Immunizations Up to Date: Yes Travel Risk - International Travel Have you traveled outside of the country in past 3 weeks: No - Coronavirus Screening Are you exhibiting any of the following symptoms?: No - Vaccine Status Have you recieved a Covid-19 vaccination: No - Review of Systems Constitutional: No Symptoms, No Fever, No Chills Eyes: No Symptoms Ears, Nose, & Throat: No Symptoms Respiratory: No Symptoms, No Cough, No Dyspnea Cardiac: No Symptoms, No Chest Pain, No Edema, No Syncope Abdominal/Gastrointestinal: No Symptoms, No Abdominal Pain, No Nausea, No Vomiting, No Diarrhea Genitourinary Symptoms: No Symptoms, No Dysuria Musculoskeletal: No Symptoms, No Back Pain, No Neck Pain Skin: No Symptoms, No Rash Neurological: No Symptoms, No Dizziness, No Focal Weakness, No Sensory Changes Psychological: No Symptoms Endocrine: No Symptoms Hematologic/Lymphatic: No Symptoms Immunological/Allergic: No Symptoms All Other Systems: Reviewed and Negative - Past Medical History Pertinent Past Medical History: Yes Neurological History: Migraines ENT History: No Pertinent History Cardiac History: Hypertension Respiratory History: No Pertinent History Endocrine Medical History: Hypothyroidism Musculoskeletal History: No Pertinent History GI Medical History: No Pertinent History History: No Pertinent History Psycho-Social History: Anxiety Female Reproductive Disorders: No Pertinent History Other Medical History: Chronic pain requiring methadone from the [facility]. - Past Surgical History Past Surgical History: Yes Neuro Surgical History: No Pertinent History Cardiac: No Pertinent History Respiratory: No Pertinent History Gastrointestinal: Cholecystectomy Genitourinary: Other Musculoskeletal: No Pertinent History Female Surgical History: No Pertinent History Other Surgical History: carpal tunner bilat. kidney stones last stone 2 months ago required stent that has been removed since then. - Social History Smoking Status: Current every day smoker How long have you smoked: 15 years Exposure to second hand smoke: Yes Drug Use: marijuana Patient Lives Alone: Yes - Female History Hx Last Menstrual Period: year ago Hx Now: No - Nursing Vital Signs Nursing Vital Signs: Initial Vital Signs Temperature 97.5 F 02/22/21 10:14 Pulse Rate 67 02/22/21 10:14 Respiratory Rate 24 02/22/21 10:14 O2 Sat by Pulse Oximetry 97 02/22/21 10:14 Pain Scale Pain Intensity 3 - Physical Exam General Appearance: mild distress (Patient observed to be experiencing cramping hands. Blood pressure cuff increasing hand spasm. Positive Trousseau sign.), alert Eye Exam: PERRL/EOMI, eyes nml inspection Ears, Nose, Throat Exam: normal ENT inspection, TMs normal, pharynx normal, moist mucous membranes, dry mucous membranes, other (Steri-Strips to anterior neck at the site of thyroidectomy. Surgical site healing well. No signs of infection.) Neck Exam: normal inspection, non-tender, supple, full range of motion Respiratory Exam: normal breath sounds, lungs clear, other (Mild stridor observed. Patient received racemic epi and Solu-Medrol prior to arrival. We will continue to monitor.), No respiratory distress Cardiovascular Exam: regular rate/rhythm, normal heart sounds, normal peripheral pulses Gastrointestinal/Abdomen Exam: soft, normal bowel sounds, No tenderness, No mass Back Exam: normal inspection, normal range of motion, No CVA tenderness, No vertebral tenderness Extremity Exam: normal inspection, normal range of motion, pelvis stable Neurologic Exam: alert, oriented x 3, cooperative, normal mood/affect, sensation nml, No motor deficits Skin Exam: normal color, warm, dry, No rash Lymphatic Exam: No adenopathy SpO2 Interpretation: normal SpO2: 94 O2 Delivery: Room Air - Course Nursing assessment & vital signs reviewed: Yes EKG Interpreted by Me: RATE (56), Sinus Rhythm, NORMAL AXIS, prolonged QT interval Ordered Tests: Active Orders 24 hr Category Date Time Status Supervisor Grading STAT Care 02/22/21 10:20 Active EKG-ER Only STAT Care 02/22/21 10:19 Active IV Insertion STAT Care 02/22/21 10:19 Active Pulse Oximetry (ED) STAT Care 02/22/21 10:19 Active House Regular Diet Diet 02/22/21 Dinner Active CBC W DIFF Stat Lab 02/22/21 10:20 Completed CK-Creatinine Phosphokinase Stat Lab 02/22/21 10:20 Completed CMP Stat Lab 02/22/21 10:20 Completed Calcium, Ionized Stat Lab 02/22/21 10:31 Completed ETHYL ALCOHOL Stat Lab 02/22/21 10:20 Completed Lactic Acid Stat Lab 02/22/21 10:20 Completed Lactic Acid Stat Lab 02/22/21 12:31 Completed MAGNESIUM Stat Lab 02/22/21 10:20 Completed PHOSPHOROUS Stat Lab 02/22/21 10:32 Completed TROPONIN Q3H Lab 02/22/21 10:20 Completed TROPONIN Q3H Lab 02/22/21 13:34 Received TROPONIN Q3H Lab 02/22/21 16:30 Ordered TROPONIN Q3H Lab 02/22/21 19:30 Ordered TROPONIN Q3H Lab 02/22/21 22:30 Ordered UA W/RFX UR CULTURE Stat Lab 02/22/21 11:50 Completed Urine Triage Profile Stat Lab 02/22/21 11:50 Completed Transfer Order Routine Transfer 02/22/21 Ordered Medication Summary Generic Name Dose Route Start Last Admin Trade Name Freq PRN Reason Stop Dose Admin Calcium Carbonate/Glycine 750 mg 02/22/21 13:15 Tums Ex 750 Mg PO 03/24/21 13:14 Q8H JOSE DANIEL Calcium Gluconate 1,000 mg 02/22/21 10:47 02/22/21 10:50 Calcium Gluconate 10% 1000 Mg IV 02/22/21 10:48 1,000 mg STAT ONE Administration Sodium Chloride 1,000 mls @ 100 mls/hr 02/22/21 10:30 02/22/21 10:29 Sodium Chloride 0.9% 1000 Ml IV 03/24/21 10:29 100 mls/hr .Q10H JOSE DANIEL Administration Magnesium Sulfate/Dextrose 100 mls @ 100 mls/hr 02/22/21 12:45 02/22/21 13:55 Magnesium 1 Gm / 100 Ml D5w IV 02/22/21 14:44 100 mls/hr Q1H JOSE DANIEL Administration Lorazepam 1 mg 02/22/21 10:25 02/22/21 10:29 Ativan 2 Mg/1 Ml Vial IV 02/22/21 10:26 1 mg ONCE STA Administration Discontinued Medications Generic Name Dose Route Start Last Admin Trade Name Freq PRN Reason Stop Dose Admin Calcium Gluconate 1,000 mg 02/22/21 12:37 02/22/21 12:49 Calcium Gluconate 10% 1000 Mg IV 02/22/21 12:38 1,000 mg STAT ONE Administration Methadone HCl Confirm 02/22/21 11:31 Dolophine 10mg Tablet Administered 02/22/21 11:32 Dose 80 mg .ROUTE .STK-MED ONE Methadone HCl 75 mg 02/22/21 11:34 02/22/21 11:38 Dolophine 10mg Tablet PO 02/22/21 11:35 75 mg ONCE STA Administration Lab/Rad Data: Laboratory Result Diagrams 02/22/21 10:20 02/22/21 10:20 Laboratory Results 02/22/21 02/22/21 02/22/21 Range/Units 12:50 12:31 11:50 WBC (4.0-10.5) K/mm3 RBC (4.1-5.4) M/mm3 Hgb (12.0-16.0) gm/dl Hct (35-47) % MCV (78-100) fl MCH (26-32) pg MCHC (32-36) g/dl RDW (11.5-14.0) % Plt Count (150-450) K/mm3 MPV (7.5-11.0) fl Gran % (36.0-66.0) % Eos # (Auto) (0-0.5) Absolute Lymphs (auto) (1.0-4.6) Absolute Monos (auto) (0.0-1.3) Lymphocytes % (24.0-44.0) % Monocytes % (0.0-12.0) % Eosinophils % (0.00-5.0) % Basophils % (0.0-0.4) % Absolute Granulocytes (1.4-6.9) Basophils # (0-0.4) Ionized Calcium (1.12-1.32) mmol/L Sodium (137-145) mmol/L Potassium (3.5-5.1) mmol/L Chloride (98-107) mmol/L Carbon Dioxide (22-30) mmol/L Anion Gap (5-15) MEQ/L BUN (7-17) mg/dL Creatinine (0.52-1.04) mg/dL Estimated GFR ML/MIN Glucose (74-106) mg/dL Lactic Acid 1.0 (0.4-2.0) Calcium (8.4-10.2) mg/dL Phosphorus (2.5-4.5) mg/dL Magnesium (1.6-2.3) mg/dL Total Bilirubin (0.2-1.3) mg/dL AST (14-36) U/L ALT (0-35) U/L Alkaline Phosphatase (38-126) U/L Creatine Kinase (30-135) U/L Troponin I (0.000-0.034) ng/mL Serum Total Protein (6.3-8.2) g/dL Albumin (3.5-5.0) g/dL Urine Color (YELLOW) Urine Appearance (CLEAR) Urine pH (5-6) Ur Specific [place] (1.005-1.025) Urine Protein (Negative) Urine Ketones (NEGATIVE) Urine Blood (0-5) Rommel/ul Urine Nitrite (NEGATIVE) Urine Bilirubin (NEGATIVE) Urine Urobilinogen (0-1) mg/dL Ur Leukocyte Esterase (NEGATIVE) Urine WBC (Auto) (0-5) /HPF Urine RBC (Auto) (0-2) /HPF U Epithel Cells (Auto) (FEW) /HPF Urine Bacteria (Auto) (NEGATIVE) /HPF Urine Mucus (Auto) (NEGATIVE) /HPF Urine Culture Reflexed (NO) Urine Glucose (NEGATIVE) mg/dL Urine Opiates Level NEGATIVE (NEGATIVE) Ur Methadone POSITIVE (NEGATIVE) Urine Barbiturates NEGATIVE (NEGATIVE) Ur Phencyclidine (PCP) NEGATIVE (NEGATIVE) Urine Amphetamine NEGATIVE (NEGATIVE) U Benzodiazepine Level NEGATIVE (NEGATIVE) Urine Cocaine NEGATIVE (NEGATIVE) Urine Marijuana (THC) POSITIVE (NEGATIVE) Ethyl Alcohol (0-10) mg/dL SARS-CoV-2 (PCR) NEGATIVE (NEGATIVE) 02/22/21 02/22/21 02/22/21 Range/Units 11:50 10:32 10:31 WBC (4.0-10.5) K/mm3 RBC (4.1-5.4) M/mm3 Hgb (12.0-16.0) gm/dl Hct (35-47) % MCV (78-100) fl MCH (26-32) pg MCHC (32-36) g/dl RDW (11.5-14.0) % Plt Count (150-450) K/mm3 MPV (7.5-11.0) fl Gran % (36.0-66.0) % Eos # (Auto) (0-0.5) Absolute Lymphs (auto) (1.0-4.6) Absolute Monos (auto) (0.0-1.3) Lymphocytes % (24.0-44.0) % Monocytes % (0.0-12.0) % Eosinophils % (0.00-5.0) % Basophils % (0.0-0.4) % Absolute Granulocytes (1.4-6.9) Basophils # (0-0.4) Ionized Calcium 0.48 L* (1.12-1.32) mmol/L Sodium (137-145) mmol/L Potassium (3.5-5.1) mmol/L Chloride (98-107) mmol/L Carbon Dioxide (22-30) mmol/L Anion Gap (5-15) MEQ/L BUN (7-17) mg/dL Creatinine (0.52-1.04) mg/dL Estimated GFR ML/MIN Glucose (74-106) mg/dL Lactic Acid (0.4-2.0) Calcium (8.4-10.2) mg/dL Phosphorus 8.1 H (2.5-4.5) mg/dL Magnesium (1.6-2.3) mg/dL Total Bilirubin (0.2-1.3) mg/dL AST (14-36) U/L ALT (0-35) U/L Alkaline Phosphatase (38-126) U/L Creatine Kinase (30-135) U/L Troponin I (0.000-0.034) ng/mL Serum Total Protein (6.3-8.2) g/dL Albumin (3.5-5.0) g/dL Urine Color YELLOW (YELLOW) Urine Appearance CLEAR (CLEAR) Urine pH 8.0 (5-6) Ur Specific [place] 1.002 (1.005-1.025) Urine Protein NEGATIVE (Negative) Urine Ketones NEGATIVE (NEGATIVE) Urine Blood NEGATIVE (0-5) Rommel/ul Urine Nitrite NEGATIVE (NEGATIVE) Urine Bilirubin NEGATIVE (NEGATIVE) Urine Urobilinogen NEGATIVE (0-1) mg/dL Ur Leukocyte Esterase NEGATIVE (NEGATIVE) Urine WBC (Auto) NONE (0-5) /HPF Urine RBC (Auto) NONE (0-2) /HPF U Epithel Cells (Auto) NONE (FEW) /HPF Urine Bacteria (Auto) NONE (NEGATIVE) /HPF Urine Mucus (Auto) SLIGHT (NEGATIVE) /HPF Urine Culture Reflexed NO (NO) Urine Glucose NEGATIVE (NEGATIVE) mg/dL Urine Opiates Level (NEGATIVE) Ur Methadone (NEGATIVE) Urine Barbiturates (NEGATIVE) Ur Phencyclidine (PCP) (NEGATIVE) Urine Amphetamine (NEGATIVE) U Benzodiazepine Level (NEGATIVE) Urine Cocaine (NEGATIVE) Urine Marijuana (THC) (NEGATIVE) Ethyl Alcohol (0-10) mg/dL SARS-CoV-2 (PCR) (NEGATIVE) 02/22/21 02/22/21 02/22/21 Range/Units 10:20 10:20 10:20 WBC (4.0-10.5) K/mm3 RBC (4.1-5.4) M/mm3 Hgb (12.0-16.0) gm/dl Hct (35-47) % MCV (78-100) fl MCH (26-32) pg MCHC (32-36) g/dl RDW (11.5-14.0) % Plt Count (150-450) K/mm3 MPV (7.5-11.0) fl Gran % (36.0-66.0) % Eos # (Auto) (0-0.5) Absolute Lymphs (auto) (1.0-4.6) Absolute Monos (auto) (0.0-1.3) Lymphocytes % (24.0-44.0) % Monocytes % (0.0-12.0) % Eosinophils % (0.00-5.0) % Basophils % (0.0-0.4) % Absolute Granulocytes (1.4-6.9) Basophils # (0-0.4) Ionized Calcium (1.12-1.32) mmol/L Sodium 138 (137-145) mmol/L Potassium 3.5 (3.5-5.1) mmol/L Chloride 94 L (98-107) mmol/L Carbon Dioxide 25 (22-30) mmol/L Anion Gap 22.9 H (5-15) MEQ/L BUN 4 L (7-17) mg/dL Creatinine 0.76 (0.52-1.04) mg/dL Estimated GFR > 60.0 ML/MIN Glucose 102 (74-106) mg/dL Lactic Acid 6.5 H (0.4-2.0) Calcium 4.7 L* (8.4-10.2) mg/dL Phosphorus (2.5-4.5) mg/dL Magnesium 1.3 L (1.6-2.3) mg/dL Total Bilirubin 0.60 (0.2-1.3) mg/dL AST 31 (14-36) U/L ALT 21 (0-35) U/L Alkaline Phosphatase 176 H (38-126) U/L Creatine Kinase 207 H (30-135) U/L Troponin I < 0.012 (0.000-0.034) ng/mL Serum Total Protein 7.4 (6.3-8.2) g/dL Albumin 4.1 (3.5-5.0) g/dL Urine Color (YELLOW) Urine Appearance (CLEAR) Urine pH (5-6) Ur Specific [place] (1.005-1.025) Urine Protein (Negative) Urine Ketones (NEGATIVE) Urine Blood (0-5) Rommel/ul Urine Nitrite (NEGATIVE) Urine Bilirubin (NEGATIVE) Urine Urobilinogen (0-1) mg/dL Ur Leukocyte Esterase (NEGATIVE) Urine WBC (Auto) (0-5) /HPF Urine RBC (Auto) (0-2) /HPF U Epithel Cells (Auto) (FEW) /HPF Urine Bacteria (Auto) (NEGATIVE) /HPF Urine Mucus (Auto) (NEGATIVE) /HPF Urine Culture Reflexed (NO) Urine Glucose (NEGATIVE) mg/dL Urine Opiates Level (NEGATIVE) Ur Methadone (NEGATIVE) Urine Barbiturates (NEGATIVE) Ur Phencyclidine (PCP) (NEGATIVE) Urine Amphetamine (NEGATIVE) U Benzodiazepine Level (NEGATIVE) Urine Cocaine (NEGATIVE) Urine Marijuana (THC) (NEGATIVE) Ethyl Alcohol < 10 (0-10) mg/dL SARS-CoV-2 (PCR) (NEGATIVE) 02/22/21 Range/Units 10:20 WBC 9.5 (4.0-10.5) K/mm3 RBC 5.01 (4.1-5.4) M/mm3 Hgb 14.2 (12.0-16.0) gm/dl Hct 43.9 (35-47) % MCV 87.6 (78-100) fl MCH 28.3 (26-32) pg MCHC 32.3 (32-36) g/dl RDW 15.7 H (11.5-14.0) % Plt Count 343 (150-450) K/mm3 MPV 9.9 (7.5-11.0) fl Gran % 59.9 (36.0-66.0) % Eos # (Auto) 0.53 H (0-0.5) Absolute Lymphs (auto) 2.53 (1.0-4.6) Absolute Monos (auto) 0.69 (0.0-1.3) Lymphocytes % 26.7 (24.0-44.0) % Monocytes % 7.3 (0.0-12.0) % Eosinophils % 5.6 H (0.00-5.0) % Basophils % 0.5 (0.0-0.4) % Absolute Granulocytes 5.69 (1.4-6.9) Basophils # 0.05 (0-0.4) Ionized Calcium (1.12-1.32) mmol/L Sodium (137-145) mmol/L Potassium (3.5-5.1) mmol/L Chloride (98-107) mmol/L Carbon Dioxide (22-30) mmol/L Anion Gap (5-15) MEQ/L BUN (7-17) mg/dL Creatinine (0.52-1.04) mg/dL Estimated GFR ML/MIN Glucose (74-106) mg/dL Lactic Acid (0.4-2.0) Calcium (8.4-10.2) mg/dL Phosphorus (2.5-4.5) mg/dL Magnesium (1.6-2.3) mg/dL Total Bilirubin (0.2-1.3) mg/dL AST (14-36) U/L ALT (0-35) U/L Alkaline Phosphatase (38-126) U/L Creatine Kinase (30-135) U/L Troponin I (0.000-0.034) ng/mL Serum Total Protein (6.3-8.2) g/dL Albumin (3.5-5.0) g/dL Urine Color (YELLOW) Urine Appearance (CLEAR) Urine pH (5-6) Ur Specific [place] (1.005-1.025) Urine Protein (Negative) Urine Ketones (NEGATIVE) Urine Blood (0-5) Rommel/ul Urine Nitrite (NEGATIVE) Urine Bilirubin (NEGATIVE) Urine Urobilinogen (0-1) mg/dL Ur Leukocyte Esterase (NEGATIVE) Urine WBC (Auto) (0-5) /HPF Urine RBC (Auto) (0-2) /HPF U Epithel Cells (Auto) (FEW) /HPF Urine Bacteria (Auto) (NEGATIVE) /HPF Urine Mucus (Auto) (NEGATIVE) /HPF Urine Culture Reflexed (NO) Urine Glucose (NEGATIVE) mg/dL Urine Opiates Level (NEGATIVE) Ur Methadone (NEGATIVE) Urine Barbiturates (NEGATIVE) Ur Phencyclidine (PCP) (NEGATIVE) Urine Amphetamine (NEGATIVE) U Benzodiazepine Level (NEGATIVE) Urine Cocaine (NEGATIVE) Urine Marijuana (THC) (NEGATIVE) Ethyl Alcohol (0-10) mg/dL SARS-CoV-2 (PCR) (NEGATIVE) - Progress Progress: improved Progress Note: Case discussed with Dr. Doyle covering Dr. Montoya who advises transfer for endocrinology evaluation. Plan of care discussed with patient. She agrees to transfer for further evaluation and treatment. 02/22/21 12:00 02/22/21 12:39 Dr. Morgan spoke to hospitalist and signal tower operator from [facility]. Hospitalist name is . [employer] is Dr. Ruiz. They accept transfer. However there are no beds available. Patient will likely be waiting till tomorrow afternoon. Dr. Ruiz advises another gram of calcium gluconate. Magnesium resulted and is 1.3. 2 g magnesium ordered. 02/22/21 13:06 Gordo Sandoval was informed of our patient and our findings. He states he will follow patient in house. 02/22/21 14:28 Patient is covid negative. Will admit to Dr. Doyle. Discussed with : Scott Will see patient in: other Counseled pt/family regarding: lab results, diagnosis, rad results - Departure Departure Disposition: Observation Clinical Impression: Prolonged QT interval, Hypocalcemia, Lactic acidosis, Carpopedal spasm, Hyperphosphatemia, High anion gap metabolic acidosis, Hypomagnesemia, Marijuana use Condition: Stable Critical Care Time: No Referrals: DEMI ARANGO DO [Primary Care Provider] -
[2021-02-22 11:10] LABS: ALBUMIN 4.1 g/dL (3.5-5.0); ALKALINE PHOSPHATASE 176 U/L (38-126); ANION GAP 22.9 MEQ/L (5-15); BLOOD UREA NITROGEN 4 mg/dL (7-17); CHLORIDE 94 mmol/L (98-107); CK-Creatinine Phosphokinase 207 U/L (30-135); Carbon Dioxide 25 mmol/L (22-30); Creatinine 1 0.76 mg/dL (0.52-1.04); EST GLOMERULAR FILTRATION RATE > 60.0 ML/MIN; ETHYL ALCOHOL < 10 mg/dL (0-10); Glucose 102 mg/dL (74-106); MAGNESIUM 1.3 mg/dL (1.6-2.3); Potassium 3.5 mmol/L (3.5-5.1); SGOT/AST 31 U/L (14-36); SGPT/ALT 21 U/L (0-35); SODIUM 138 mmol/L (137-145); Total Protein 7.4 g/dL (6.3-8.2)
[2021-02-22 11:19] LABS: Calcium 4.7 mg/dL (8.4-10.2)
[2021-02-22] MEDS ORDERED: DOLOPHINE 10MG Tablet ONE (11:31)
[2021-02-22] MEDS ORDERED: DOLOPHINE 10MG Tablet PO STA (11:34)
[2021-02-22 12:02] LABS: Appearance CLEAR (CLEAR); Bilirubin NEGATIVE (NEGATIVE); Blood NEGATIVE Ery/ul (0-5); Glucose NEGATIVE (NEGATIVE); Ketones NEGATIVE (NEGATIVE); Leukocyte Esterase NEGATIVE (NEGATIVE); Mucus SLIGHT /HPF (NEGATIVE); Nitrite NEGATIVE (NEGATIVE); Protein,Urine Dip NEGATIVE (Negative); Specific Gravity 1.002 (1.005-1.025); Urobilinogen NEGATIVE mg/dL (0-1)
[2021-02-22 12:44] LABS: Amphetamine,Urine NEGATIVE (NEGATIVE); Barbiturate,Urine NEGATIVE (NEGATIVE); Benzodiazepine,Urine NEGATIVE (NEGATIVE); Cocaine,Urine NEGATIVE (NEGATIVE); Methadone,Urine POSITIVE (NEGATIVE); Opiate,Urine NEGATIVE (NEGATIVE); PCP,Urine NEGATIVE (NEGATIVE); THC,Urine POSITIVE (NEGATIVE)
[2021-02-22] MEDS ORDERED: Magnesium 1 Gm / 100 Ml D5W*** 100 ML IV ONE ×2 (12:46→13:53)
[2021-02-22] MEDS: Magnesium 1 Gm / 100 Ml D5W*** 100 ML IV SCH ×2 (12:49→13:55)
[2021-02-22] MEDS ORDERED: MORPHINE SULFATE 4 MG INJ IV PRN (14:59)
[2021-02-22] MEDS: Tums EX 750 MG PO SCH ×3 (16:11→21:33)
[2021-02-22] MEDS: Protonix 40MG Tablet PO SCH (17:10)
[2021-02-22] MEDS: MELOXICAM PO SCH (17:10)
[2021-02-22] MEDS: Sodium Chloride 0.9% 1000 ML 1,000 ML IV SCH (17:10)
[2021-02-22] MEDS: Toprol-Xl 25MG Tablets PO SCH (17:10)
[2021-02-22] MEDS: Neurontin 400 MG PO SCH (21:29)
[2021-02-22] MEDS: Zanaflex 4 MG PO SCH (21:30)
[2021-02-22] MEDS ORDERED: NON-FORMULARY ITEM PO SCH (22:00)
[2021-02-22] MEDS ORDERED: NON-FORMULARY ITEM (Gabapentin [Neurontin] 800 MG) PO SCH (22:00)
[2021-02-22 23:07] LABS: ANION GAP 14.7 MEQ/L (5-15); BLOOD UREA NITROGEN 12 mg/dL (7-17); CHLORIDE 97 mmol/L (98-107); Carbon Dioxide 29 mmol/L (22-30); Creatinine 1 0.82 mg/dL (0.52-1.04); EST GLOMERULAR FILTRATION RATE > 60.0 ML/MIN; Glucose 125 mg/dL (74-106); Potassium 4.2 mmol/L (3.5-5.1); SODIUM 136 mmol/L (137-145)
[2021-02-22 23:08] LABS: Calcium 5.4 mg/dL (8.4-10.2)
[2021-02-22] MEDS ORDERED: Ativan 2 MG/1 ML VIAL IV PRN (23:48)
[2021-02-23] MEDS: TYLENOL 325 MG PO PRN ×2 (00:15→04:03)
[2021-02-23 05:35] LABS: BASOPHIL % 0.1 % (0.0-0.4); Basophil (Absolute #) 0.01 (0-0.4); Eosinophil % 0.2 % (0.00-5.0); Eosinophil (Absolute #) 0.03 (0-0.5); Hemoglobin 12.7 gm/dl (12.0-16.0); Lymphocyte (Absolute #) 2.41 (1.0-4.6); Lymphocytes % 16.6 % (24.0-44.0); Mean Cell Volume 86.5 fl (78-100); Mean Corpuscular Hemoglobin 28.2 pg (26-32); Mean Corpuscular Hgb Concent. 32.6 g/dl (32-36); Mean Platelet Volume 9.8 fl (7.5-11.0); Monocyte (Absolute #) 1.36 (0.0-1.3); Monocytes % 9.4 % (0.0-12.0); Neutrophil % 73.7 % (36.0-66.0); Platelet Count 333 K/mm3 (150-450); Red Blood Count 4.51 M/mm3 (4.1-5.4); Red Cell Distribution Width 15.1 % (11.5-14.0); White Blood Count 14.5 K/mm3 (4.0-10.5)
[2021-02-23 05:51] LABS: ALBUMIN 3.3 g/dL (3.5-5.0); ALKALINE PHOSPHATASE 143 U/L (38-126); ANION GAP 12.1 MEQ/L (5-15); BLOOD UREA NITROGEN 11 mg/dL (7-17); CHLORIDE 99 mmol/L (98-107); Carbon Dioxide 28 mmol/L (22-30); Creatinine 1 0.76 mg/dL (0.52-1.04); EST GLOMERULAR FILTRATION RATE > 60.0 ML/MIN; Glucose 91 mg/dL (74-106); Potassium 3.9 mmol/L (3.5-5.1); SGOT/AST 19 U/L (14-36); SGPT/ALT 14 U/L (0-35); SODIUM 135 mmol/L (137-145); Total Protein 6.2 g/dL (6.3-8.2)
[2021-02-23 06:09] LABS: Calcium 5.5 mg/dL (8.4-10.2)
[2021-02-23] MEDS: Sodium Chloride 0.9% 1000 ML 1,000 ML IV SCH (06:17)
[2021-02-23] MEDS: Zanaflex 4 MG PO SCH (08:03)
[2021-02-23] MEDS: MELOXICAM PO SCH (08:03)
[2021-02-23] MEDS: Protonix 40MG Tablet PO SCH (08:03)
[2021-02-23] MEDS: Toprol-Xl 25MG Tablets PO SCH (08:03)
[2021-02-23] MEDS: Neurontin 400 MG PO SCH (08:03)
[2021-02-23 08:10] VITALS: BP 156/70; PULSE 51; O2SAT 97
[2021-02-23] MEDS: Tums EX 750 MG PO SCH (08:11)
[2021-02-23] MEDS ORDERED: NON-FORMULARY BULK ITEM IV ONE (08:44)
[2021-02-23] MEDS ORDERED: Calcium Gluconate 10% 1000 MG IV ONE (09:00)
[2021-02-23] MEDS ORDERED: Magnesium Sulfate 1 GM/2 ML VIAL IV ONE (09:00)
[2021-02-23] MEDS: Magnesium 1 Gm / 100 Ml D5W*** 100 ML IV SCH ×2 (09:13→10:35)
[2021-02-23] MEDS ORDERED: NACL IV SCH (10:00)
[2021-02-23] MEDS ORDERED: LEVOTHYROXINE SODIUM 88 MCG PO SCH (10:00)
[2021-02-23] MEDS ORDERED: NON-FORMULARY ITEM PO SCH (10:00)
[2021-02-23] MEDS ORDERED: DEXTROSE 5% IV SCH (10:00)
[2021-02-23] MEDS ORDERED: DOLOPHINE 10MG Tablet PO SCH (10:00)
[2021-02-23] MEDS ORDERED: METHADONE HCL PO SCH (10:00)
[2021-02-23] MEDS ORDERED: SYNTHROID 88 MCG PO SCH (10:00)
[2021-02-23] MEDS ORDERED: CALCIUM GLUCONATE IV SCH (10:00)
[2021-02-27] MEDS ORDERED: VITAMIN D2 PO SCH (16:30)
--- NOTE | 2021-04-05 08:29 | PCM.SSS ---
History of Present Illness - Chief Complaint Chief Complaint: Hypocalcemia History of Present Illness: is a 45 year old female who presented to ER via EMS with painful muscle spasms and difficulty breathing. Calcium and magnesium levels were critically low. Patient was accepted for admission to [facility]End[facility]ology. She was observed overnight until transfer with orders for IV calcium gluconate and Magnesium from [employer] Dr Ruiz. Patient is 1 week S/P Thyroidectomy for hyperthyroid resulting in hypoparathyroid. PMHx HTN,arthritis,migraines,anxiety/depression, is a current every smoker and is on Methadone. - Review of Systems Constitutional: No Symptoms, Other (information was taken from ER evaluation) Eyes: No Symptoms Ears, Nose, & Throat: No Symptoms Respiratory: Short Of Breath Cardiac: No Symptoms Abdominal/Gastrointestinal: No Symptoms Genitourinary Symptoms: No Symptoms Musculoskeletal: Other (see HPI) Skin: No Symptoms Neurological: No Symptoms Psychological: Anxiety Endocrine: Other (see HPI) Immunological/Allergic: No Symptoms Medications & Allergies Home Medications: Home Medication List Tizanidine HCl 4 mg [Zanaflex 4 MG] 4 mg PO BID 07/28/20 [History Confirmed 02/22/21] Ergocalciferol (Vitamin D2) [Vitamin D2] 50,000 unit PO WEEKLY 01/05/21 [History Confirmed 02/22/21] Gabapentin [Neurontin] 800 mg PO TID 01/05/21 [History Confirmed 02/22/21] Meloxicam 7.5 mg PO DAILY 01/05/21 [History Confirmed 02/22/21] Methadone HCl 75 mg PO DAILY 01/05/21 [History Confirmed 02/22/21] PANTOPRAZOLE 40 mg Tablet [Protonix 40MG Tablet] 40 mg PO DAILY 01/05/21 [History Confirmed 02/22/21] Hydrocodone/Acetaminophen [Hydrocodone-Acetamin 5-325 mg] 1 tab PO Q6HPRN PRN MDD 4 02/22/21 [History Confirmed 02/22/21] Levothyroxine Sodium [Levothyroxine] 88 mcg PO DAILY 02/22/21 [History Confirmed 02/22/21] Metoprolol Succinate 25 mg Xl* [Toprol-Xl 25MG Tablets] 25 mg PO DAILY 02/22/21 [History Confirmed 02/22/21] Allergies/Adverse Reactions: Allergies Allergy/AdvReac Type Severity Reaction Status Date / Time sulfamethoxazole Allergy Intermediate Hives Verified 02/22/21 10:24 [From ] trimethoprim [From ] Allergy Intermediate Hives Verified 02/22/21 10:24 adhesive AdvReac Intermediate Rash Verified 02/22/21 15:08 - Past Medical History Past Medical History: Yes Neurological History: Migraines ENT History: No Pertinent History Cardiac History: Hypertension Respiratory History: No Pertinent History Endocrine Medical History: Hyperthyroidism Musculoskelatal History: Arthritis GI Medical History: GERD History: Other Pyscho-Social History: Anxiety, Depression Reproductive Disorders: Abnormal Uterine Bleeding Comment: Chronic pain requiring methadone from the [facility][1[facility] - Female History Hx Last Menstrual Period: year ago Are you now?: No - Past Surgical History Past Surgical History: Yes Neuro Surgical History: No Pertinent History Cardiac History: No Pertinent History Respiratory Surgery: No Pertinent History GI Surgical History: No Pertinent History Genitourinary Surgical Hx: Other Musculskeletal Surgical Hx: No Pertinent History Female Surgical History: No Pertinent History Other Surgical History: thyroid/parathyroidectomy. renal stents d/t stones - Social History Smoking Status: Current every day smoker How long have you smoked: Since teen Exposure to second hand smoke: Yes Alcohol: None Drug Use: marijuana - Physical Exam General Appearance: other (see ER evaluation exam as patient was transfered) Assessment/Plan (1) Hypocalcemia Status: Acute Code(s): E83.51 - HYPOCALCEMIA (2) Hypomagnesemia Status: Acute Code(s): E83.42 - HYPOMAGNESEMIA (3) Hypoparathyroidism Status: Acute Qualifiers: Hypoparathyroidism type: other hypoparathyroidism Qualified Code(s): E20.8 - Other hypoparathyroidism Assessment & Plan: S/P thyroidectomy Code(s): E20.9 - HYPOPARATHYROIDISM, UNSPECIFIED (4) H/O thyroidectomy Status: Acute Code(s): E89.0 - POSTPROCEDURAL HYPOTHYROIDISM Hospital Summary - Hospital Course Hospital Course: Please see HPI. Patient was admitted overnight to covering physician for obs . Patient received IV Calcium gluconate and IV magnesium and was monitored on telemetry until transfer to [facility] the following morning for treatment of sequela from acute hypoparathyroid. - Vitals & Intake/Output Vital Signs: Vital Signs Temperature 98.4 F 02/23/21 08:00 Pulse Rate 51 L 02/23/21 08:00 Respiratory Rate 18 02/23/21 08:00 Blood Pressure 156/70 02/23/21 08:00 O2 Sat by Pulse Oximetry 97 02/23/21 08:00 - Lab Result Diagrams: 02/23/21 04:00 02/23/21 04:00 - Procedures and Test Procedures and Tests throughout Hospitalization: Therapy Orders & Screens 02/22/21 15:42 Smoking Cessation Education ONCE Comment: Diagnosis: Hypocalcemia Smoking Status: Current every day smoker How long have you smoked: Since teen Have you smoked in the past 12 months: Yes Approximately how many cigarettes per day: 5-6 Do you dip or chew tobacco: No - Discharge Disposition: DC TO OTHER HOSP Condition: Stable Prescriptions: No Action Tizanidine HCl 4 mg [Zanaflex 4 MG] 4 mg PO BID Methadone HCl 75 mg PO DAILY Gabapentin [Neurontin] 800 mg PO TID Meloxicam 7.5 mg PO DAILY PANTOPRAZOLE 40 mg Tablet [Protonix 40MG Tablet] 40 mg PO DAILY Ergocalciferol (Vitamin D2) [Vitamin D2] 50,000 unit PO WEEKLY Metoprolol Succinate 25 mg Xl* [Toprol-Xl 25MG Tablets] 25 mg PO DAILY Hydrocodone/Acetaminophen [Hydrocodone-Acetamin 5-325 mg] 1 tab PO Q6HPRN PRN MDD 4 PRN Reason: Pain Levothyroxine Sodium [Levothyroxine] 88 mcg PO DAILY Follow up with: DEMI ARANGO DO [Primary Care Provider] - Forms: Ambulance Transport Record, Transfer Record Inter-Agency
== END 2021-02-23 10:56 ==
LOC: ED 10:13 → MED SURG 14:51
PROVIDERS: ADMIT Family Medicine; ATTEND Family Medicine
DX: E89.0 Postprocedural hypothyroidism (principal); E83.51 Hypocalcemia; R06.02 Shortness of breath; R25.2 Cramp and spasm; Z79.899 Other long term (current) drug therapy; I10 Essential (primary) hypertension; Z20.822 Contact with and (suspected) exposure to COVID-19; E87.2 Acidosis; E83.39 Other disorders of phosphorus metabolism; E83.42 Hypomagnesemia; F12.90 Cannabis use, unspecified, uncomplicated
CPT/HCPCS: 36000; 36415; 80048; 80053; 80307; 81001; 82330; 82550; 82652; 83605; 83735; 83970; 84100; 84484; 85025; 93005; 93041; 93268; 94760; 96374; 96375; 96376; 99285; G0378; G0480; U0003; J0610; J2060; J3475; A9270-GY

== ENCOUNTER 2022-03-20 15:30 | Emergency (ER) | payer OTHER ==
[2022-03-20] MEDS ORDERED: Sodium Chloride 0.9% 1000 ML 1,000 ML IV SCH (16:00)
[2022-03-20 16:03] LABS: Appearance CLEAR (CLEAR); Bilirubin NEGATIVE (NEGATIVE); Dipstick done @ ? MAIN LAB; Glucose NEGATIVE (NEGATIVE); Ketones SMALL-15 (NEGATIVE); Nitrite NEGATIVE (NEGATIVE); Ph >=9.0 (5-6); Protein,Urine Dip 100 (Negative); RBC NEGATIVE Ery/ul (0-5); Specific Gravity 1.015 (1.005-1.025); Urobilinogen 0.2 mg/dL (0-1)
[2022-03-20 16:04] LABS: Absolute Neutrophil Ct (ANC) 10.23 x10^3/uL (1.4-6.9); Basophil (Absolute #) 0.01 x10^3/uL (0-0.4); Eosinophil (Absolute #) 0 x10^3/uL (0-0.5); Hematocrit 48.9 % (35-47); Hemoglobin 17.1 g/dL (12.0-16.0); Lymphocyte (Absolute #) 1.14 x10^3/uL (1.0-4.6); Lymphocytes % 9.8 % (24.0-44.0); Mean Cell Volume 86.9 fL (78-100); Mean Corpuscular Hemoglobin 30.4 pg (26-32); Mean Platelet Volume 9.8 fL (7.5-11.0); Monocyte (Absolute #) 0.16 x10^3/uL (0.0-1.3); Monocytes % 1.4 % (0.0-12.0); Neutrophil % 88.4 % (36.0-66.0); Platelet Count 389 x10^3/uL (150-450); Red Blood Count 5.63 x10^6/uL (4.1-5.4); White Blood Count 11.6 x10^3/uL (4.0-10.5)
[2022-03-20 16:04] LABS: Bacteria RARE /HPF (NEGATIVE); Epithelial Cells RARE /HPF (FEW); Mucus SLIGHT /HPF (NEGATIVE); Urine Cultured Indicated? NO
[2022-03-20] MEDS ORDERED: Ativan 2 MG/1 ML VIAL IV ONE (16:06)
[2022-03-20] MEDS ORDERED: Calcium Gluconate 10% 1000 MG IV ONE ×2 (16:07→16:09)
[2022-03-20] MEDS ORDERED: Sodium Chloride 0.9% 1000 ML 1,000 ML ONE (16:09)
[2022-03-20] MEDS ORDERED: Ativan 2 MG/1 ML VIAL ONE (16:09)
[2022-03-20] MEDS ORDERED: Hydromorphone 1 mg/ml Injection IV ONE (16:23)
[2022-03-20 16:24] LABS: Amphetamine,Urine NEGATIVE (NEGATIVE); Barbiturate,Urine NEGATIVE (NEGATIVE); Benzodiazepine,Urine NEGATIVE (NEGATIVE); Cocaine,Urine NEGATIVE (NEGATIVE); Methadone,Urine NEGATIVE (NEGATIVE); Opiate,Urine NEGATIVE (NEGATIVE); PCP,Urine NEGATIVE (NEGATIVE); THC,Urine POSITIVE (NEGATIVE)
[2022-03-20 16:30] LABS: ALKALINE PHOSPHATASE 130 U/L (38-126); ANION GAP 16.5 MEQ/L (5-15); BLOOD UREA NITROGEN 13 mg/dL (7-17); CHLORIDE 98 mmol/L (98-107); Calcium 8.7 mg/dL (8.4-10.2); Carbon Dioxide 26 mmol/L (22-30); Creatinine 1 0.88 mg/dL (0.52-1.04); EST GLOMERULAR FILTRATION RATE > 60.0 ML/MIN; Glucose 138 mg/dL (74-106); MAGNESIUM 1.5 mg/dL (1.6-2.3); PHOSPHOROUS 2.3 mg/dL (2.5-4.5); Potassium 3.9 mmol/L (3.5-5.1); SGOT/AST 28 U/L (14-36); SGPT/ALT 24 U/L (0-35); SODIUM 136 mmol/L (137-145); TROPONIN < 0.012 ng/mL (0.000-0.034); Total Protein 9.1 g/dL (6.3-8.2)
--- NOTE | 2022-03-20 16:32 | ERPHSYRPT ---
- History of Present Illness Time Seen by Provider: 03/20/22 15:40 Source: patient Exam Limitations: no limitations Patient Subjective Stated Complaint: Pt states "I thought I had food poisoning and my muscles keep drawing up and I am nauseated and vomiting." Triage Nursing Assessment: Pt presnted alert and oriented X 3, skin wpd. Pt ambulates with a slow gait. PT muscles keep spasming, pt anxious and tachypneic. Physician History: Patient is a 46-year-old female presents to emergency department for evaluation of generalized muscle spasms/carpopedal spasms. Symptoms started today. Patient has a history of thyroidectomy. Patient on Synthroid replacement. Patient symptoms started today. Symptoms have been constant. Patient unable to tolerate her home medications. Patient unable to take her Suboxone. No trauma. No fever. Patient unable to provide a detailed history due to pain and discomfort. However patient denies chest pain. No shortness of breath. Patient voices no other complaints or concerns at this time. Portions of this note were created with voice recognition technology. There may be grammatical, spelling, punctuation or sound alike errors. Timing/Duration: today Severity: moderate Modifying Factors: Improves With: nothing Associated Symptoms: denies symptoms Allergies/Adverse Reactions: sulfamethoxazole [From Septra] Allergy (Intermediate, Verified 02/22/21 10:24) Hives trimethoprim [From Septra] Allergy (Intermediate, Verified 02/22/21 10:24) Hives adhesive Adverse Reaction (Intermediate, Verified 02/22/21 15:08) Rash Home Medications: Tizanidine HCl 4 mg [Zanaflex 4 MG] 4 mg PO BID 07/28/20 [History] Ergocalciferol (Vitamin D2) [Vitamin D2] 50,000 unit PO WEEKLY 01/05/21 [History] Gabapentin [Neurontin] 800 mg PO TID 01/05/21 [History] Meloxicam 7.5 mg PO DAILY 01/05/21 [History] Methadone HCl 75 mg PO DAILY 01/05/21 [History] PANTOPRAZOLE 40 mg Tablet [Protonix 40MG Tablet] 40 mg PO DAILY 01/05/21 [History] Levothyroxine Sodium [Levothyroxine] 88 mcg PO DAILY 02/22/21 [History] Metoprolol Succinate 25 mg Xl* [Toprol-Xl 25MG Tablets] 25 mg PO DAILY 02/22/21 [History] Hx Tetanus, Diphtheria Vaccination/Date Given: No Hx Influenza Vaccination/Date Given: No Hx Pneumococcal Vaccination/Date Given: No Immunizations Up to Date: Yes Travel Risk - International Travel Have you traveled outside of the country in past 3 weeks: No - Coronavirus Screening Symptoms: Fever, Headaches/Body Aches/Fatigue Close contact with a COVID-19 positive Pt in past 14-21 Days: No - Vaccine Status Have you recieved a Covid-19 vaccination: No - Review of Systems Constitutional: No Symptoms, No Fever, No Chills Eyes: No Symptoms Ears, Nose, & Throat: No Symptoms Respiratory: No Symptoms, No Cough, No Dyspnea Cardiac: No Symptoms, No Chest Pain, No Edema, No Syncope Abdominal/Gastrointestinal: No Symptoms, No Abdominal Pain, No Nausea, No Vomiting, No Diarrhea Genitourinary Symptoms: No Symptoms, No Dysuria Musculoskeletal: No Symptoms, No Back Pain, No Neck Pain Skin: No Symptoms, No Rash Neurological: No Symptoms, No Dizziness, No Focal Weakness, No Sensory Changes Psychological: No Symptoms Endocrine: No Symptoms Hematologic/Lymphatic: No Symptoms Immunological/Allergic: No Symptoms All Other Systems: Reviewed and Negative - Past Medical History Pertinent Past Medical History: Yes Neurological History: Migraines ENT History: No Pertinent History Cardiac History: Hypertension Respiratory History: No Pertinent History Endocrine Medical History: Hyperthyroidism Musculoskeletal History: Arthritis GI Medical History: GERD History: Other Psycho-Social History: Anxiety, Depression Female Reproductive Disorders: Abnormal Uterine Bleeding Other Medical History: Chronic pain requiring methadone from the [facility]. - Past Surgical History Past Surgical History: Yes Neuro Surgical History: No Pertinent History Cardiac: No Pertinent History Respiratory: No Pertinent History Gastrointestinal: No Pertinent History Genitourinary: Other Musculoskeletal: No Pertinent History Female Surgical History: No Pertinent History Other Surgical History: thyroid/parathyroidectomy. renal stents d/t stones - Social History Smoking Status: Current every day smoker How long have you smoked: Since teen Exposure to second hand smoke: Yes Drug Use: marijuana Patient Lives Alone: No - Female History Hx Last Menstrual Period: just stopped Hx Now: No - Nursing Vital Signs Nursing Vital Signs: Initial Vital Signs Temperature 97.8 F 03/20/22 15:35 Pulse Rate 103 H 03/20/22 15:35 Respiratory Rate 22 03/20/22 15:35 Blood Pressure 155/99 03/20/22 15:35 O2 Sat by Pulse Oximetry 99 03/20/22 15:35 Pain Scale Pain Intensity 9 - Physical Exam General Appearance: no apparent distress, alert Eye Exam: PERRL/EOMI, eyes nml inspection Ears, Nose, Throat Exam: normal ENT inspection, TMs normal, pharynx normal, moist mucous membranes Neck Exam: normal inspection, non-tender, supple, full range of motion Respiratory Exam: normal breath sounds, lungs clear, No respiratory distress Cardiovascular Exam: regular rate/rhythm, normal heart sounds, normal peripheral pulses Gastrointestinal/Abdomen Exam: soft, normal bowel sounds, No tenderness, No mass Back Exam: normal inspection, normal range of motion, No CVA tenderness, No vertebral tenderness Extremity Exam: normal inspection, normal range of motion, pelvis stable, other (Carpopedal spasms observed on exam. Positive ) Neurologic Exam: alert, oriented x 3, cooperative, normal mood/affect, nml cerebellar function, nml station & gait, sensation nml, No motor deficits Skin Exam: normal color, warm, dry, No rash Lymphatic Exam: No adenopathy SpO2 Interpretation: normal SpO2: 99 O2 Delivery: Room Air - Course Nursing assessment & vital signs reviewed: Yes EKG Interpreted by Me: RATE (90), Sinus Rhythm, NORMAL AXIS, NORMAL INTERVALS Ordered Tests: Active Orders 24 hr Category Date Time Status Public Relations Manager STAT Care 03/20/22 15:55 Active EKG-ER Only STAT Care 03/20/22 15:54 Active IV Insertion STAT Care 03/20/22 15:46 Active CBC W DIFF Stat Lab 03/20/22 13:40 Completed CMP Stat Lab 03/20/22 13:40 Completed HCG,QUALITATIVE URINE Stat Lab 03/20/22 15:54 Completed MAGNESIUM Stat Lab 03/20/22 13:40 Completed PHOSPHOROUS Stat Lab 03/20/22 13:40 Completed TROPONIN Q4H Lab 03/20/22 20:00 Ordered TROPONIN Q4H Lab 03/21/22 00:00 Ordered TROPONIN Stat Lab 03/20/22 13:40 Completed TSH [TSH, 3RD Generation] Stat Lab 03/20/22 13:40 Completed UA W/RFX CULTURE Stat Lab 03/20/22 15:54 Completed Urine Triage Profile Stat Lab 03/20/22 15:54 Completed Medication Summary Generic Name Dose Route Start Last Admin Trade Name Feliberto PRN Reason Stop Dose Admin Sodium Chloride 1,000 mls @ 100 mls/hr 03/20/22 16:00 03/20/22 16:11 Sodium Chloride 0.9% 1000 Ml IV 04/19/22 15:59 100 mls/hr .Q10H JOSE DANIEL Administration Magnesium Sulfate/Dextrose 100 mls @ 100 mls/hr 03/20/22 16:45 03/20/22 17:18 Magnesium 1 Gm / 100 Ml D5w IV 03/20/22 18:44 100 mls/hr Q1H JOSE DANIEL Administration Discontinued Medications Generic Name Dose Route Start Last Admin Trade Name Feliberto PRN Reason Stop Dose Admin Calcium Gluconate 1,000 mg 03/20/22 16:07 03/20/22 16:11 Calcium Gluconate 1000 Mg/10 Ml Vial IV 03/20/22 16:08 1,000 mg STAT ONE Administration Calcium Gluconate Confirm 03/20/22 16:09 Calcium Gluconate 1000 Mg/10 Ml Vial Administered 03/20/22 16:10 Dose 1,000 mg IV .STK-MED ONE Hydromorphone HCl 0.5 mg 03/20/22 16:23 03/20/22 16:42 Hydromorphone 1 Mg/1ml Inj 1 Mg/Ml Syringe IV 03/20/22 16:24 0.5 mg STAT ONE Administration Hydromorphone HCl Confirm 03/20/22 16:40 Hydromorphone 1 Mg/1ml Inj 1 Mg/Ml Syringe Administered 03/20/22 16:41 Dose 1 mg .ROUTE .STK-MED ONE Lorazepam 1 mg 03/20/22 16:06 03/20/22 16:11 Lorazepam 2 Mg/1 Ml 2 Mg Vial IV 03/20/22 16:07 1 mg STAT ONE Administration Lorazepam Confirm 03/20/22 16:09 Lorazepam 2 Mg/1 Ml 2 Mg Vial Administered 03/20/22 16:10 Dose 2 mg .ROUTE .STK-MED ONE Lab/Rad Data: Laboratory Result Diagrams 03/20/22 13:40 03/20/22 13:40 Laboratory Results 10/04/22 10/04/22 10/04/22 Range/Units 15:54 15:54 15:54 WBC (4.0-10.5) x10^3/uL RBC (4.1-5.4) x10^6/uL Hgb (12.0-16.0) g/dL Hct (35-47) % MCV (78-100) fL MCH (26-32) pg MCHC (32-36) g/dL RDW (11.5-14.0) % Plt Count (150-450) x10^3/uL MPV (7.5-11.0) fL Gran % (36.0-66.0) % Immature Gran % (Auto) (0.00-0.4) % Nucleat RBC Rel Count (0.00-0.1) % Eos # (Auto) (0-0.5) x10^3/uL Immature Gran # (Auto) (0.00-0.03) x10^3u/L Absolute Lymphs (auto) (1.0-4.6) x10^3/uL Absolute Monos (auto) (0.0-1.3) x10^3/uL Absolute Nucleated RBC (0.00-0.01) x10^3u/L Lymphocytes % (24.0-44.0) % Monocytes % (0.0-12.0) % Eosinophils % (0.00-5.0) % Basophils % (0.0-0.4) % Absolute Granulocytes (1.4-6.9) x10^3/uL Basophils # (0-0.4) x10^3/uL Sodium (137-145) mmol/L Potassium (3.5-5.1) mmol/L Chloride (98-107) mmol/L Carbon Dioxide (22-30) mmol/L Anion Gap (5-15) MEQ/L BUN (7-17) mg/dL Creatinine (0.52-1.04) mg/dL Estimated GFR ML/MIN Glucose (74-106) mg/dL Calcium (8.4-10.2) mg/dL Phosphorus (2.5-4.5) mg/dL Magnesium (1.6-2.3) mg/dL Total Bilirubin (0.2-1.3) mg/dL AST (14-36) U/L ALT (0-35) U/L Alkaline Phosphatase (38-126) U/L Troponin I (0.000-0.034) ng/mL Serum Total Protein (6.3-8.2) g/dL Albumin (3.5-5.0) g/dL TSH 3rd Generation (0.47-4.68) mIU/L Urinalys Dipstick Clnc MAIN LAB Urine Color YELLOW (YELLOW) Urine Appearance CLEAR (CLEAR) Urine pH >=9.0 (5-6) Ur Specific [place] 1.015 (1.005-1.025) POC Urine Protein Conf 100 (Negative) Urine Ketones SMALL-15 (NEGATIVE) Urine Nitrite NEGATIVE (NEGATIVE) Urine Bilirubin NEGATIVE (NEGATIVE) Urine Urobilinogen 0.2 (0-1) mg/dL Urine Leukocytes NEGATIVE (NEGATIVE) Urine WBC (Auto) 3-5 (0-5) /HPF Urine RBC (Auto) 6-10 (0-2) /HPF U Epithel Cells (Auto) RARE (FEW) /HPF Urine Bacteria (Auto) RARE (NEGATIVE) /HPF Urine RBC NEGATIVE (0-5) Rommel/ul Urine Mucus (Auto) SLIGHT (NEGATIVE) /HPF Ur Culture Indicated? NO Urine Glucose NEGATIVE (NEGATIVE) mg/dL Urine HCG, Qual NEGATIVE (Negative) Urine Opiates Level NEGATIVE (NEGATIVE) Ur Methadone NEGATIVE (NEGATIVE) Urine Barbiturates NEGATIVE (NEGATIVE) Ur Phencyclidine (PCP) NEGATIVE (NEGATIVE) Urine Amphetamine NEGATIVE (NEGATIVE) U Benzodiazepine Level NEGATIVE (NEGATIVE) Urine Cocaine NEGATIVE (NEGATIVE) Urine Marijuana (THC) POSITIVE (NEGATIVE) 03/20/22 03/20/22 03/20/22 Range/Units 13:40 13:40 13:40 WBC 11.6 H (4.0-10.5) x10^3/uL RBC 5.63 H (4.1-5.4) x10^6/uL Hgb 17.1 H (12.0-16.0) g/dL Hct 48.9 H (35-47) % MCV 86.9 (78-100) fL MCH 30.4 (26-32) pg MCHC 35.0 (32-36) g/dL RDW 13.0 (11.5-14.0) % Plt Count 389 (150-450) x10^3/uL MPV 9.8 (7.5-11.0) fL Gran % 88.4 H (36.0-66.0) % Immature Gran % (Auto) 0.3 (0.00-0.4) % Nucleat RBC Rel Count 0.0 (0.00-0.1) % Eos # (Auto) 0 (0-0.5) x10^3/uL Immature Gran # (Auto) 0.04 H (0.00-0.03) x10^3u/L Absolute Lymphs (auto) 1.14 (1.0-4.6) x10^3/uL Absolute Monos (auto) 0.16 (0.0-1.3) x10^3/uL Absolute Nucleated RBC 0.00 (0.00-0.01) x10^3u/L Lymphocytes % 9.8 L (24.0-44.0) % Monocytes % 1.4 (0.0-12.0) % Eosinophils % 0.0 (0.00-5.0) % Basophils % 0.1 (0.0-0.4) % Absolute Granulocytes 10.23 H (1.4-6.9) x10^3/uL Basophils # 0.01 (0-0.4) x10^3/uL Sodium 136 L (137-145) mmol/L Potassium 3.9 (3.5-5.1) mmol/L Chloride 98 (98-107) mmol/L Carbon Dioxide 26 (22-30) mmol/L Anion Gap 16.5 H (5-15) MEQ/L BUN 13 (7-17) mg/dL Creatinine 0.88 (0.52-1.04) mg/dL Estimated GFR > 60.0 ML/MIN Glucose 138 H (74-106) mg/dL Calcium 8.7 (8.4-10.2) mg/dL Phosphorus 2.3 L (2.5-4.5) mg/dL Magnesium 1.5 L (1.6-2.3) mg/dL Total Bilirubin 1.30 (0.2-1.3) mg/dL AST 28 (14-36) U/L ALT 24 (0-35) U/L Alkaline Phosphatase 130 H (38-126) U/L Troponin I < 0.012 (0.000-0.034) ng/mL Serum Total Protein 9.1 H (6.3-8.2) g/dL Albumin 5.0 (3.5-5.0) g/dL TSH 3rd Generation 2.700 (0.47-4.68) mIU/L Urinalys Dipstick Clnc Urine Color (YELLOW) Urine Appearance (CLEAR) Urine pH (5-6) Ur Specific [place] (1.005-1.025) POC Urine Protein Conf (Negative) Urine Ketones (NEGATIVE) Urine Nitrite (NEGATIVE) Urine Bilirubin (NEGATIVE) Urine Urobilinogen (0-1) mg/dL Urine Leukocytes (NEGATIVE) Urine WBC (Auto) (0-5) /HPF Urine RBC (Auto) (0-2) /HPF U Epithel Cells (Auto) (FEW) /HPF Urine Bacteria (Auto) (NEGATIVE) /HPF Urine RBC (0-5) Rommel/ul Urine Mucus (Auto) (NEGATIVE) /HPF Ur Culture Indicated? Urine Glucose (NEGATIVE) mg/dL Urine HCG, Qual (Negative) Urine Opiates Level (NEGATIVE) Ur Methadone (NEGATIVE) Urine Barbiturates (NEGATIVE) Ur Phencyclidine (PCP) (NEGATIVE) Urine Amphetamine (NEGATIVE) U Benzodiazepine Level (NEGATIVE) Urine Cocaine (NEGATIVE) Urine Marijuana (THC) (NEGATIVE) - Progress Progress: improved Progress Note: Patient reassessed. Carpopedal spasms resolved after administration of calcium. Work-up reveals a mild hypocalcemia. Calcium 8.7. Patient also had hypomagnesemia. Magnesium replaced. Thyroid appeared to be within normal limits. Potassium within normal limits. IV fluids infused to address the nausea and vomiting. Patient not tolerating p.o. Patient comfortably resting. Case discussed with Dr. Montoya who advises discharge home. Dr. Montoya request outpatient labs to be performed on , 03/22/2022. Dr. Montoya will see patient on 03/23/2022 at 10:00 in her office. Will discharge at this time. Patient agrees to plan. She voices no other complaints or concerns at this time. Portions of this note were created with voice recognition technology. There may be grammatical, spelling, punctuation or sound alike errors 03/20/22 17:28 Counseled pt/family regarding: diagnosis, need for follow-up - Departure Departure Disposition: Home Clinical Impression: Hypocalcemia, [place], Carpopedal spasm, Prolonged QT interval Condition: Stable Critical Care Time: No Referrals: DEMI ARANGO DO [Primary Care Provider] - Follow up/PCP as directed Additional Instructions: Discharge/Care Plan ALLY LION was seen on 03/20/22 in the Emergency Room. The patient was counseled regarding Diagnosis,Lab results, Imaging studies, need for follow up and when to return to the Emergency Room. Prescriptions given: Discharge Note I have spoken with the patient and/or caregivers. I have explained the patient's condition, diagnosis and treatment plan based on the information available to me at this time. I have answered the patient's and/or caregiver's questions and addressed any concerns. The patient and/or caregivers have as good understanding of the patient's diagnosis, condition and treatment plan as can be expected at this point. The vital signs have been stable. The patient's condition is stable and appropriate for discharge from the emergency department. The patient will pursue further outpatient evaluation with the primary care physician or other designated or consulting physician as outlined in the clarence gutierrez instructions. The patient and/or caregivers are agreeable to this plan of care and follow-up instructions have been explained in detail. The patient and/or caregivers have received these instruction. The patient/and or caregivers are aware that any significant change in condition or worsening of symptoms should prompt an immediate return to this or the closest emergency department or call 911. Prescriptions: Ondansetron ODT 4 MG [Zofran Odt 4 mg] 4 mg PO Q6H PRN PRN #10 tablet PRN Reason: Vomiting
[2022-03-20] MEDS ORDERED: Hydromorphone 1 mg/ml Injection ONE (16:40)
[2022-03-20] MEDS: Magnesium 1 Gm / 100 Ml D5W*** 100 ML IV SCH ×2 (16:43→17:18)
[2022-03-20 17:37] VITALS: BP 142/76; PULSE 74
[2022-03-20 17:40] VITALS: O2SAT 99
== END 2022-03-20 17:52 | disposition home or self-care (01) ==
LOC: ED 15:30
DX: E83.51 Hypocalcemia (principal); R29.0 Tetany; R94.31 Abnormal electrocardiogram [ECG] [EKG]; I10 Essential (primary) hypertension; Z72.0 Tobacco use; Z79.891 Long term (current) use of opiate analgesic; Z79.899 Other long term (current) drug therapy; Z28.310 Unvaccinated for COVID-19
CPT/HCPCS: 36000; 36415; 80053; 80307; 81015; 81025; 83735; 84100; 84443; 84484; 85025; 93005; 93041; 96360; 96365; 96374; 96375; 99284; J0610; J1170; J2060; J3475

== ENCOUNTER 2023-07-17 15:36 | Emergency (ER) | payer OTHER ==
[2023-07-17 17:40] VITALS: TEMP 97.9
[2023-07-17] MEDS ORDERED: Sodium Chloride 0.9% 1000 ML 1,000 ML IV STA (17:47)
[2023-07-17] MEDS ORDERED: Sodium Chloride 0.9% 1000 ML 1,000 ML ONE (17:51)
[2023-07-17 17:57] LABS: Absolute Neutrophil Ct (ANC) 5.94 x10^3/uL (1.4-6.9); BASOPHIL % 0.7 % (0.0-0.4); Basophil (Absolute #) 0.07 x10^3/uL (0-0.4); Eosinophil % 2.8 % (0.00-5.0); Eosinophil (Absolute #) 0.28 x10^3/uL (0-0.5); Hemoglobin 15.4 g/dL (12.0-16.0); IMMATURE GRAN # 0.02 x10^3u/L (0.00-0.03); IMMATURE GRAN % 0.2 % (0.00-0.4); Lymphocyte (Absolute #) 2.94 x10^3/uL (1.0-4.6); Lymphocytes % 29.5 % (24.0-44.0); Mean Cell Volume 87.2 fL (78-100); Mean Corpuscular Hemoglobin 28.6 pg (26-32); Mean Corpuscular Hgb Concent. 32.8 g/dL (32-36); Mean Platelet Volume 10.1 fL (7.5-11.0); Monocyte (Absolute #) 0.71 x10^3/uL (0.0-1.3); Monocytes % 7.1 % (0.0-12.0); Neutrophil % 59.7 % (36.0-66.0); Platelet Count 306 x10^3/uL (150-450); Red Blood Count 5.39 x10^6/uL (4.1-5.4)
--- NOTE | 2023-07-17 18:00 | ERPHSYRPT ---
- History of Present Illness Historian: patient Exam Limitations: no limitations Patient Subjective Stated Complaint: "my kidneys are bad again". Triage Nursing Assessment: C/o right flank pain and urinary frequency past 3 days. Also states has left flank pain and left side mid abd tender. States h/o kidney stones right side with 7 mm stone surgically removed and ureter stint placement. AAox3, walked in. No diarrhea. Timing/Duration: day(s) (3), worse Quality: sharpness, stabbing Abdominal Pain Onset Location: flank (bilt), other (left mid abd) Severity of Pain-Max: moderate Severity of Pain-Current: moderate Modifying Factors: Improves With: nothing Previous symptoms: same symptoms as today, no recent treatment Hx Tetanus, Diphtheria Vaccination/Date Given: No Hx Influenza Vaccination/Date Given: No Hx Pneumococcal Vaccination/Date Given: No - History of Present Illness Time Seen by Provider: 07/17/23 17:45 Physician History: 48 y/o white female obese 3 day bilat flank and left mid abd pain. worsened in last 24 hours. feel similar to right ureterolithiasis in past with 7mm stone requiring ureteral stent. no cp. no sob (AMELIA MCLEOD) Allergies/Adverse Reactions: sulfamethoxazole [From Septra] Allergy (Intermediate, Verified 02/22/21 10:24) Hives trimethoprim [From Septra] Allergy (Intermediate, Verified 02/22/21 10:24) Hives adhesive Adverse Reaction (Intermediate, Verified 02/22/21 15:08) Rash Home Medications: Tizanidine HCl 4 mg [Zanaflex 4 MG] 4 mg PO BID 07/28/20 [History] Ergocalciferol (Vitamin D2) [Vitamin D2] 50,000 unit PO WEEKLY 01/05/21 [History] Gabapentin [Neurontin] 800 mg PO TID 01/05/21 [History] PANTOPRAZOLE 40 mg Tablet [Protonix 40MG Tablet] 40 mg PO DAILY 01/05/21 [History] Levothyroxine Sodium [Levothyroxine] 88 mcg PO DAILY 02/22/21 [History] Metoprolol Succinate 25 mg Xl* [Toprol-Xl 25MG Tablets] 25 mg PO DAILY 02/22/21 [History] Buprenorphine HCl/Naloxone HCl [Suboxone 8 mg-2 mg Sl Film] 1 each SL BID 06/19 07/10 [History] calcitrioL [Calcitriol] 0.5 mcg PO DAILY 07/17/23 [History] Travel Risk - International Travel Have you traveled outside of the country in past 3 weeks: No - Coronavirus Screening Are you exhibiting any of the following symptoms?: No Symptoms: Vomiting/Diarrhea Close contact with a COVID-19 positive Pt in past 14-21 Days: No - Vaccine Status Have you recieved a Covid-19 vaccination: No - Review of Systems Constitutional: No Symptoms Eyes: No Symptoms Ears, Nose, & Throat: No Symptoms Respiratory: No Symptoms Cardiac: No Symptoms Abdominal/Gastrointestinal: Abdominal Pain Genitourinary Symptoms: Flank Pain (bilat) Musculoskeletal: No Symptoms Skin: No Symptoms Neurological: No Symptoms Psychological: No Symptoms Endocrine: No Symptoms Hematologic/Lymphatic: No Symptoms Immunological/Allergic: No Symptoms All Other Systems: Reviewed and Negative - Past Medical History Pertinent Past Medical History: Yes Neurological History: Migraines ENT History: No Pertinent History Cardiac History: Hypertension Respiratory History: Other Endocrine Medical History: Hypothyroidism, Other Musculoskeletal History: Arthritis GI Medical History: GERD History: Other Psycho-Social History: Anxiety, Depression Female Reproductive Disorders: Abnormal Uterine Bleeding Other Medical History: COVID-19, hx of kidney stones x3 (s/p stent placement and removal), tailbone fracture, ankylosing spondylitis. thyroidectomy, cholecystectomy, B carpal tunnel releases (~4 years ago), EMG to B hands (end of 2021/beginning of 2022, did not attend follow-up visit) - Past Surgical History Past Surgical History: Yes Neuro Surgical History: No Pertinent History Cardiac: No Pertinent History Respiratory: No Pertinent History Gastrointestinal: No Pertinent History Genitourinary: Other Musculoskeletal: No Pertinent History Female Surgical History: No Pertinent History Other Surgical History: thyroid/parathyroidectomy. renal stents d/t stones - Social History Smoking Status: Current every day smoker How long have you smoked: Since teen Exposure to second hand smoke: Yes Drug Use: marijuana Patient Lives Alone: No (lives with son) - Female History Hx Now: No - Physical Exam General Appearance: mild distress, alert, anxiety Eye Exam: PERRL/EOMI, eyes nml inspection Ears, Nose, Throat Exam: normal ENT inspection, moist mucous membranes Neck Exam: normal inspection, non-tender, supple, full range of motion Respiratory Exam: normal breath sounds, lungs clear, airway intact, No chest tenderness, No respiratory distress Cardiovascular Exam: regular rate/rhythm, normal heart sounds, normal peripheral pulses Gastrointestinal/Abdomen Exam: soft, normal bowel sounds, tenderness (mild left lower abd to palpation) Pelvic Exam: not done Rectal Exam: not done Back Exam: normal inspection, normal range of motion, CVA tenderness (bilat), No vertebral tenderness Extremity Exam: normal inspection, normal range of motion, pelvis stable Neurologic Exam: alert, oriented x 3, cooperative, 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, normal mood/affect, nml cerebellar function, nml station & gait, sensation nml Skin Exam: normal color, warm, dry Lymphatic Exam: No adenopathy SpO2 Interpretation: normal SpO2: 98 O2 Delivery: Room Air - Nursing Vital Signs Nursing Vital Signs: Initial Vital Signs Temperature 97.9 F 07/17/23 17:27 Pulse Rate 94 H 07/17/23 17:27 Respiratory Rate 22 07/17/23 17:27 Blood Pressure 184/113 07/17/23 17:27 O2 Sat by Pulse Oximetry 98 07/17/23 17:27 Pain Scale Pain Intensity 10 - Course Nursing assessment & vital signs reviewed: Yes Ordered Tests: Active Orders 24 hr Category Date Time Status IV Insertion STAT Care 07/17/23 17:47 Active ABDOMEN AND PELVIS W/0 CONTRAS [CT] Stat Exams 07/17/23 17:49 Taken AMYLASE Stat Lab 07/17/23 17:35 Completed CBC W DIFF Stat Lab 07/17/23 17:35 Completed CMP Stat Lab 07/17/23 17:35 Completed LIPASE Stat Lab 07/17/23 17:35 Completed Lactic Acid Stat Lab 07/17/23 17:47 Completed UA W/RFX UR CULTURE Stat Lab 07/17/23 17:50 Completed Medication Summary Discontinued Medications Generic Name Dose Route Start Last Admin Trade Name Freq PRN Reason Stop Dose Admin Dexamethasone Sodium Phosphate 6 mg 07/17/23 21:46 Dexamethasone Sod Phosphate 10 Mg/Ml IV 07/17/23 21:47 STAT ONE Hydromorphone HCl 1 mg 07/17/23 18:51 07/17/23 19:21 Hydromorphone 1 Mg/1ml Inj IV 07/17/23 18:52 1 mg STAT ONE Administration Hydromorphone HCl Confirm 07/17/23 19:16 Hydromorphone 1 Mg/1ml Inj Administered 07/17/23 19:17 Dose 1 mg .ROUTE .STK-MED ONE Sodium Chloride 1,000 mls @ 999 mls/hr 07/17/23 17:47 07/17/23 18:56 Sodium Chloride 0.9% 1000 Ml IV 07/17/23 18:47 Infused .Q1H1M STA Infusion Sodium Chloride Confirm 07/17/23 17:51 Sodium Chloride 0.9% 1000 Ml Administered 07/17/23 17:52 Dose 1,000 mls @ ud .ROUTE .STK-MED ONE Ketorolac Tromethamine 30 mg 07/17/23 18:51 07/17/23 19:19 Ketorolac Tromethamine 30 Mg/Ml Inj IV 07/17/23 18:52 30 mg STAT ONE Administration Ketorolac Tromethamine Confirm 07/17/23 19:16 Ketorolac Tromethamine 30 Mg/Ml Inj Administered 07/17/23 19:17 Dose 30 mg .ROUTE .STK-MED ONE Ondansetron HCl 4 mg 07/17/23 18:51 07/17/23 19:17 Ondansetron Hcl 4 Mg/2 Ml Vial IV 07/17/23 18:52 4 mg STAT ONE Administration Ondansetron HCl Confirm 07/17/23 19:16 Ondansetron Hcl 4 Mg/2 Ml Vial Administered 07/17/23 19:17 Dose 4 mg .ROUTE .STK-MED ONE Lab/Rad Data: Laboratory Result Diagrams 07/17/23 17:35 07/17/23 17:35 Laboratory Results 07/17/23 07/17/23 07/17/23 Range/Units 17:50 17:47 17:35 WBC (4.0-10.5) x10^3/uL RBC (4.1-5.4) x10^6/uL Hgb (12.0-16.0) g/dL Hct (35-47) % MCV (78-100) fL MCH (26-32) pg MCHC (32-36) g/dL RDW (11.5-14.0) % Plt Count (150-450) x10^3/uL MPV (7.5-11.0) fL Gran % (36.0-66.0) % Immature Gran % (Auto) (0.00-0.4) % Nucleat RBC Rel Count (0.00-0.1) % Eos # (Auto) (0-0.5) x10^3/uL Immature Gran # (Auto) (0.00-0.03) x10^3u/L Absolute Lymphs (auto) (1.0-4.6) x10^3/uL Absolute Monos (auto) (0.0-1.3) x10^3/uL Absolute Nucleated RBC (0.00-0.01) x10^3u/L Lymphocytes % (24.0-44.0) % Monocytes % (0.0-12.0) % Eosinophils % (0.00-5.0) % Basophils % (0.0-0.4) % Absolute Granulocytes (1.4-6.9) x10^3/uL Basophils # (0-0.4) x10^3/uL Sodium 138 (137-145) mmol/L Potassium 3.4 L (3.5-5.1) mmol/L Chloride 101 (98-107) mmol/L Carbon Dioxide 32 H (22-30) mmol/L Anion Gap 8.4 (5-15) MEQ/L BUN 8 (7-17) mg/dL Creatinine 0.79 (0.52-1.04) mg/dL Estimated GFR 93.4 ML/MIN Glucose 88 (74-106) mg/dL Lactic Acid 0.9 (0.4-2.0) Calcium 9.1 (8.4-10.2) mg/dL Total Bilirubin 0.80 (0.2-1.3) mg/dL AST 26 (14-36) U/L ALT 24 (0-35) U/L Alkaline Phosphatase 173 H (38-126) U/L Serum Total Protein 8.2 (6.3-8.2) g/dL Albumin 4.3 (3.5-5.0) g/dL Amylase 65 (30-110) U/L Lipase 55 (23-300) U/L Urine Color Yellow (Yellow) Urine Appearance Clear (Clear) Urine pH 6.5 (4.6-8.0) Ur Specific [place] <=1.005 (1.005-1.030) Urine Protein Negative (Negative) Urine Glucose (UA) Negative (Negative) mg/dL Urine Ketones Negative (Negative) Urine Blood Negative (Negative) Urine Nitrite Negative (Negative) Urine Bilirubin Negative (Negative) Urine Urobilinogen 0.2 (0.2) mg/dL Ur Leukocyte Esterase Negative (Negative) U Hyaline Cast (Auto) NONE SEEN (0-2) /LPF Urine Microscopic RBC 0-2 (0-5) /HPF Urine Microscopic WBC 3-5 (0-5) /HPF Ur Epithelial Cells None Seen (None Seen) /HPF Urine Bacteria None Seen (None Seen) /HPF Urine Culture Reflexed NO (NO) 07/17/23 Range/Units 17:35 WBC 10.0 (4.0-10.5) x10^3/uL RBC 5.39 (4.1-5.4) x10^6/uL Hgb 15.4 (12.0-16.0) g/dL Hct 47.0 (35-47) % MCV 87.2 (78-100) fL MCH 28.6 (26-32) pg MCHC 32.8 (32-36) g/dL RDW 13.0 (11.5-14.0) % Plt Count 306 (150-450) x10^3/uL MPV 10.1 (7.5-11.0) fL Gran % 59.7 (36.0-66.0) % Immature Gran % (Auto) 0.2 (0.00-0.4) % Nucleat RBC Rel Count 0.0 (0.00-0.1) % Eos # (Auto) 0.28 (0-0.5) x10^3/uL Immature Gran # (Auto) 0.02 (0.00-0.03) x10^3u/L Absolute Lymphs (auto) 2.94 (1.0-4.6) x10^3/uL Absolute Monos (auto) 0.71 (0.0-1.3) x10^3/uL Absolute Nucleated RBC 0.00 (0.00-0.01) x10^3u/L Lymphocytes % 29.5 (24.0-44.0) % Monocytes % 7.1 (0.0-12.0) % Eosinophils % 2.8 (0.00-5.0) % Basophils % 0.7 (0.0-0.4) % Absolute Granulocytes 5.94 (1.4-6.9) x10^3/uL Basophils # 0.07 (0-0.4) x10^3/uL Sodium (137-145) mmol/L Potassium (3.5-5.1) mmol/L Chloride (98-107) mmol/L Carbon Dioxide (22-30) mmol/L Anion Gap (5-15) MEQ/L BUN (7-17) mg/dL Creatinine (0.52-1.04) mg/dL Estimated GFR ML/MIN Glucose (74-106) mg/dL Lactic Acid (0.4-2.0) Calcium (8.4-10.2) mg/dL Total Bilirubin (0.2-1.3) mg/dL AST (14-36) U/L ALT (0-35) U/L Alkaline Phosphatase (38-126) U/L Serum Total Protein (6.3-8.2) g/dL Albumin (3.5-5.0) g/dL Amylase (30-110) U/L Lipase (23-300) U/L Urine Color (Yellow) Urine Appearance (Clear) Urine pH (4.6-8.0) Ur Specific [place] (1.005-1.030) Urine Protein (Negative) Urine Glucose (UA) (Negative) mg/dL Urine Ketones (Negative) Urine Blood (Negative) Urine Nitrite (Negative) Urine Bilirubin (Negative) Urine Urobilinogen (0.2) mg/dL Ur Leukocyte Esterase (Negative) U Hyaline Cast (Auto) (0-2) /LPF Urine Microscopic RBC (0-5) /HPF Urine Microscopic WBC (0-5) /HPF Ur Epithelial Cells (None Seen) /HPF Urine Bacteria (None Seen) /HPF Urine Culture Reflexed (NO) - Progress Progress: improved, pain not gone completely Will see patient in: hospital (full admit) Counseled pt/family regarding: lab results - Progress Progress Note: 07/17/23 19:48 transfer of care to dr. morgan at shift change. he will f/u with test results and make final disposition (AMELIA MCLEOD) Patient endorsed to Dr. Morgan at approximately [address] Morgan advised follow-up on pending CAT scan. CAT scans of the abdomen pelvis is normal compared to 01/05/2021. Patient reassessed. She is resting comfortably. Urinalysis nonremarkable. Laboratory workup noncontributory. Patient received a dose of Decadron in our ED. Patient will follow-up with her primary care doctor for further evaluation and treatment. Complexity problem addressed is moderate acute complicated No critical care time Complex of data reviewed and analyzed is moderate. Test ordered test reviewed. Results analyzed and correlated clinically with history and physical exam. Risk complication and or risk morbidity/mortality of patient management is high. Patient received Dilaudid for pain control Vital stable. Time spent to discharge patient is approximately 15 minutes. Plan of care established for shared decision making. No social determinants of health present impede follow-up. Portions of this note were created with voice recognition technology. There may be grammatical, spelling, punctuation or sound alike errors 07/17/23 21:48 07/17/23 21:49 (PONCE MORGAN) - Departure Departure Disposition: Home Critical Care Time: No - Departure Clinical Impression: Abdominal pain, Flank pain Condition: Stable Referrals: SHAE MORGAN NP [Primary Care Provider] - Follow up/PCP as directed Additional Instructions: Discharge/Care Plan LIONLUKEALLYMADDIE CASILLAS was seen on 07/17/23 in the Emergency Room. The patient was counseled regarding Diagnosis,Lab results, Imaging studies, need for follow up and when to return to the Emergency Room. Prescriptions given: Discharge Note I have spoken with the patient and/or caregivers. I have explained the patient's condition, diagnosis and treatment plan based on the information available to me at this time. I have answered the patient's and/or caregiver's questions and addressed any concerns. The patient and/or caregivers have as good understanding of the patient's diagnosis, condition and treatment plan as can be expected at this point. The vital signs have been stable. The patient's condition is stable and appropriate for discharge from the emergency department. The patient will pursue further outpatient evaluation with the primary care physician or other designated or consulting physician as outlined in the discharge instructions. The patient and/or caregivers are agreeable to this plan of care and follow-up instructions have been explained in detail. The patient and/or caregivers have received these instruction. The patient/and or caregivers are aware that any significant change in condition or worsening of symptoms should prompt an immediate return to this or the closest emergency department or call 911.
[2023-07-17 18:12] LABS: ALBUMIN 4.3 g/dL (3.5-5.0); BILIRUBIN,TOTAL 0.8 mg/dL (0.2-1.3); Calcium 9.1 mg/dL (8.4-10.2); Creatinine 1 0.79 mg/dL (0.52-1.04); EST GLOMERULAR FILTRATION RATE 93.4 ML/MIN; Total Protein 8.2 g/dL (6.3-8.2)
[2023-07-17 18:14] LABS: Potassium 3.4 mmol/L (3.5-5.1)
[2023-07-17 18:15] LABS: ANION GAP 8.4 MEQ/L (5-15)
[2023-07-17] MEDS ORDERED: TORAdol 30 mg Injection IV ONE (18:51)
[2023-07-17] MEDS ORDERED: Hydromorphone 1 mg/ml Injection IV ONE (18:51)
[2023-07-17] MEDS ORDERED: Zofran 4 MG/2 ML VIAL IV ONE (18:51)
[2023-07-17 19:05] LABS: ADD URINE CULTURE? NO (NO); Appearance Clear (Clear); Bacteria None Seen /HPF (None Seen); Bilirubin Negative (Negative); Blood Negative (Negative); Epithelial Cells None Seen /HPF (None Seen); Glucose, Urine Negative (Negative); Hyaline Casts NONE SEEN /LPF (0-2); Ketones Negative (Negative); Leukocyte Esterase Negative (Negative); Nitrite Negative (Negative); Ph 6.5 (4.6-8.0); Protein,Urine Dip Negative (Negative); RBC 0-2 /HPF (0-5); Specific Gravity <=1.005 (1.005-1.030); Urobilinogen 0.2 mg/dL (0.2)
[2023-07-17] MEDS ORDERED: Zofran 4 MG/2 ML VIAL ONE (19:16)
[2023-07-17] MEDS ORDERED: Hydromorphone 1 mg/ml Injection ONE (19:16)
[2023-07-17] MEDS ORDERED: TORAdol 30 mg Injection ONE (19:16)
[2023-07-17] MEDS ORDERED: DECADRON 10MG INJ. IV ONE (21:46)
[2023-07-17] MEDS ORDERED: DECADRON 10MG INJ. ONE (21:56)
[2023-07-17 22:08] VITALS: BP 144/96; PULSE 60; RESP 17; O2SAT 96
--- NOTE | 2023-07-18 08:39 | XRAY ---
Indication: Right lower quadrant pain 3 days. Multiple contiguous axial images obtained through the abdomen and pelvis without contrast. Comparison: January 05, 2021 Lung bases clear. Heart not enlarged. Noncontrasted stomach and bowel loops appear nonobstructed with normal appendix. Again cholecystectomy and mild diffuse fatty liver. No free fluid/air. Remaining liver, pancreas, spleen, adrenal glands, kidneys, ureters, bladder, uterus, and aorta are unremarkable for noncontrast exam. Osseous structures intact again with mild degenerative changes throughout the thoracolumbar spine. No ventral or inguinal hernias. Impression: 1. Again fatty liver. 2. Remaining CT abdomen/pelvis without contrast exam continues to be negative.
== END 2023-07-17 22:08 | disposition home or self-care (01) ==
LOC: ED 15:36
DX: R10.9 Unspecified abdominal pain (principal); I10 Essential (primary) hypertension; Z79.891 Long term (current) use of opiate analgesic; Z79.899 Other long term (current) drug therapy; Z28.310 Unvaccinated for COVID-19; Z86.16 Personal history of COVID-19; Z72.0 Tobacco use
CPT/HCPCS: 36000; 36415; 74176; 80053; 81001; 82150; 83605; 83690; 85025; 96374; 96375; 99284; J1100; J1170; J1885; J2405

== ENCOUNTER 2023-10-08 10:33 | Observation (INO) | payer OTHER ==
[2023-10-08] MEDS ORDERED: Zofran 4 MG/2 ML VIAL ONE ×2 (10:40→12:57)
[2023-10-08] MEDS: Zofran 4 MG/2 ML VIAL IV ONE ×2 (10:43→12:57)
[2023-10-08] MEDS ORDERED: Sodium Chloride 0.9% 1000 ML 1,000 ML ONE (10:43)
[2023-10-08] MEDS ORDERED: TORAdol 30 mg Injection ONE (10:43)
--- NOTE | 2023-10-08 10:44 | ERPHSYRPT ---
- History of Present Illness Time Seen by Provider: 10/08/23 10:40 Historian: patient Exam Limitations: no limitations Physician History: Patient is a 48-year-old female with a history of kidney stones and hypothyroidism presents our emergency department via EMS for evaluation of acute onset right flank pain that started yesterday. Pain is got progressively worse. Patient states the pain radiates from her right flank to her right groin area patient is nauseous and vomiting. She has not been able to take her nausea medication. Patient's symptoms are progressive symptoms are moderate in intensity. No specific worsening improving factors. Pain is similar to her previous pain at which time she was diagnosed with a ureteral lithiasis. No associated chest pain or shortness of breath. Patient is nauseous and vomiting. Patient voices no other complaints or concerns at this time. Portions of this note were created with voice recognition technology. There may be grammatical, spelling, punctuation or sound alike errors Timing/Duration: yesterday Activities at Onset: none Quality: aching Abdominal Pain Onset Location: flank Pain Radiation: no radiation Severity of Pain-Max: moderate Severity of Pain-Current: moderate Modifying Factors: Improves With: nothing Associated Symptoms: nausea, vomiting, No chest pain Previous symptoms: same symptoms as today Allergies/Adverse Reactions: sulfamethoxazole [From Febra] Allergy (Intermediate, Verified 10/08/23 10:35) Hives trimethoprim [From Febra] Allergy (Intermediate, Verified 10/08/23 10:35) Hives adhesive Adverse Reaction (Intermediate, Verified 10/08/23 10:35) Rash Home Medications: Tizanidine HCl 4 mg [Zanaflex 4 MG] 4 mg PO BID 07/28/20 [History] Ergocalciferol (Vitamin D2) [Vitamin D2] 50,000 unit PO WEEKLY 01/05/21 [History] Gabapentin [Neurontin] 800 mg PO TID 01/05/21 [History] PANTOPRAZOLE 40 mg Tablet [Protonix 40MG Tablet] 40 mg PO DAILY 01/05/21 [History] Levothyroxine Sodium [Levothyroxine] 88 mcg PO DAILY 02/22/21 [History] Metoprolol Succinate 25 mg Xl* [Toprol-Xl 25MG Tablets] 25 mg PO DAILY 02/22/21 [History] Buprenorphine HCl/Naloxone HCl [Suboxone 8 mg-2 mg Sl Film] 1 each SL BID 07/17/23 [History] calcitrioL [Calcitriol] 0.5 mcg PO DAILY 07/17/23 [History] Hx Tetanus, Diphtheria Vaccination/Date Given: No Hx Influenza Vaccination/Date Given: No Hx Pneumococcal Vaccination/Date Given: No - Review of Systems Constitutional: No Symptoms, No Fever, No Chills Eyes: No Symptoms Ears, Nose, & Throat: No Symptoms Respiratory: No Symptoms, No Cough, No Dyspnea Cardiac: No Symptoms, No Chest Pain, No Edema, No Syncope Abdominal/Gastrointestinal: No Symptoms, No Abdominal Pain, No Nausea, No Vomiting, No Diarrhea Genitourinary Symptoms: No Symptoms, No Dysuria Musculoskeletal: No Symptoms, No Back Pain, No Neck Pain Skin: No Symptoms, No Rash Neurological: No Symptoms, No Dizziness, No Focal Weakness, No Sensory Changes Psychological: No Symptoms Endocrine: No Symptoms Hematologic/Lymphatic: No Symptoms Immunological/Allergic: No Symptoms All Other Systems: Reviewed and Negative - Past Medical History Pertinent Past Medical History: Yes Neurological History: Migraines ENT History: No Pertinent History Cardiac History: Hypertension Respiratory History: Other Endocrine Medical History: Hypothyroidism, Other Musculoskeletal History: Arthritis GI Medical History: GERD History: Other Psycho-Social History: Anxiety, Depression Female Reproductive Disorders: Abnormal Uterine Bleeding Other Medical History: COVID-19, hx of kidney stones x3 (s/p stent placement and removal), tailbone fracture, ankylosing spondylitis. thyroidectomy, cholecystectomy, B carpal tunnel releases (~4 years ago), EMG to B hands (end of 2021/beginning of 2022, did not attend follow-up visit) - Past Surgical History Past Surgical History: Yes Neuro Surgical History: No Pertinent History Cardiac: No Pertinent History Respiratory: No Pertinent History Gastrointestinal: No Pertinent History Genitourinary: Other Musculoskeletal: No Pertinent History Female Surgical History: No Pertinent History Other Surgical History: thyroid/parathyroidectomy. renal stents d/t stones - Female History Hx Now: No - Social History Smoking Status: Current every day smoker How long have you smoked: Since teen Exposure to second hand smoke: Yes Drug Use: marijuana Patient Lives Alone: No (lives with son) - Nursing Vital Signs Nursing Vital Signs: Initial Vital Signs Temperature 98.1 F 10/08/23 10:36 Pulse Rate 66 04/23/24 10:36 Respiratory Rate 18 10/08/23 10:36 Blood Pressure 208/92 10/08/23 10:36 O2 Sat by Pulse Oximetry 99 10/08/23 10:36 Pain Scale Pain Intensity 10 - Physical Exam General Appearance: no apparent distress, alert Eye Exam: PERRL/EOMI, eyes nml inspection Ears, Nose, Throat Exam: normal ENT inspection, pharynx normal, moist mucous membranes Neck Exam: normal inspection, non-tender, supple, full range of motion Respiratory Exam: normal breath sounds, lungs clear, No respiratory distress Cardiovascular Exam: regular rate/rhythm, normal heart sounds Gastrointestinal/Abdomen Exam: soft, No tenderness, No mass Back Exam: normal inspection, normal range of motion, No CVA tenderness, No vertebral tenderness Extremity Exam: normal inspection, normal range of motion, pelvis stable Neurologic Exam: alert, oriented x 3, cooperative, normal mood/affect, sensation nml, No motor deficits Skin Exam: normal color, warm, dry Lymphatic Exam: No adenopathy SpO2 Interpretation: normal SpO2: 98 O2 Delivery: Room Air - Course Nursing assessment & vital signs reviewed: Yes Ordered Tests: Active Orders 24 hr Category Date Time Status IV Insertion STAT Care 10/08/23 10:34 Active ABDOMEN AND PELVIS W/0 CONTRAS [CT] Stat Exams 10/08/23 10:35 Completed CBC W DIFF Stat Lab 10/08/23 10:45 Completed CMP Stat Lab 10/08/23 10:45 Completed HCG QUALITATIVE, SERUM Stat Lab 10/08/23 Completed HCG QUALITATIVE, URINE Stat Lab 10/08/23 Ordered UA W/RFX UR CULTURE Stat Lab 10/08/23 12:49 Ordered Transfer Order Routine Transfer 10/08/23 Ordered Medication Summary Discontinued Medications Generic Name Dose Route Start Last Admin Trade Name Freq PRN Reason Stop Dose Admin Diphenhydramine HCl 50 mg 10/08/23 11:01 10/08/23 11:03 Diphenhydramine Hcl 50 Mg/Ml Vial IV 10/08/23 11:02 50 mg STAT ONE Administration Diphenhydramine HCl Confirm 10/08/23 11:01 Diphenhydramine Hcl 50 Mg/Ml Vial Administered 10/08/23 11:02 Dose 50 mg .ROUTE .STK-MED ONE Sodium Chloride 1,000 mls @ 999 mls/hr 10/08/23 10:34 10/08/23 11:57 Sodium Chloride 0.9% 1000 Ml IV 10/08/23 11:34 Infused .Q1H1M STA Infusion Sodium Chloride Confirm 10/08/23 10:43 Sodium Chloride 0.9% 1000 Ml Administered 10/08/23 10:44 Dose 1,000 mls @ ud .ROUTE .STK-MED ONE Ketorolac Tromethamine 30 mg 10/08/23 10:36 10/08/23 10:53 Ketorolac Tromethamine 30 Mg/Ml Inj IV 10/08/23 10:37 30 mg STAT ONE Administration Ketorolac Tromethamine Confirm 10/08/23 10:43 Ketorolac Tromethamine 30 Mg/Ml Inj Administered 10/08/23 10:44 Dose 30 mg .ROUTE .STK-MED ONE Ondansetron HCl 4 mg 10/08/23 10:34 10/08/23 10:43 Ondansetron Hcl 4 Mg/2 Ml Vial IV 10/08/23 10:35 4 mg STAT ONE Administration Ondansetron HCl Confirm 10/08/23 10:40 Ondansetron Hcl 4 Mg/2 Ml Vial Administered 10/08/23 10:41 Dose 4 mg .ROUTE .STK-MED ONE Ondansetron HCl 4 mg 10/08/23 12:42 Ondansetron Hcl 4 Mg/2 Ml Vial IV 10/08/23 12:43 STAT ONE Lab/Rad Data: Laboratory Result Diagrams 10/08/23 10:45 10/08/23 10:45 Laboratory Results 10/08/23 10/08/23 10/08/23 Range/Units Unknown 10:45 10:45 WBC 12.6 H (4.0-10.5) x10^3/uL RBC 5.66 H (4.1-5.4) x10^6/uL Hgb 16.3 H (12.0-16.0) g/dL Hct 48.0 H (35-47) % MCV 84.8 (78-100) fL MCH 28.8 (26-32) pg MCHC 34.0 (32-36) g/dL RDW 13.5 (11.5-14.0) % Plt Count 318 (150-450) x10^3/uL MPV 9.9 (7.5-11.0) fL Gran % 79.5 H (36.0-66.0) % Immature Gran % (Auto) 0.4 (0.00-0.4) % Nucleat RBC Rel Count 0.0 (0.00-0.1) % Eos # (Auto) 0.15 (0-0.5) x10^3/uL Immature Gran # (Auto) 0.05 H (0.00-0.03) x10^3u/L Absolute Lymphs (auto) 1.87 (1.0-4.6) x10^3/uL Absolute Monos (auto) 0.44 (0.0-1.3) x10^3/uL Absolute Nucleated RBC 0.00 (0.00-0.01) x10^3u/L Lymphocytes % 14.8 L (24.0-44.0) % Monocytes % 3.5 (0.0-12.0) % Eosinophils % 1.2 (0.00-5.0) % Basophils % 0.6 (0.0-0.4) % Absolute Granulocytes 10.02 H (1.4-6.9) x10^3/uL Basophils # 0.08 (0-0.4) x10^3/uL Sodium 140 (135-145) mmol/L Potassium 3.6 (3.5-5.1) mmol/L Chloride 105 (98-107) mmol/L Carbon Dioxide 27 (22-30) mmol/L Anion Gap 11.4 (5-15) MEQ/L BUN 11 (7-17) mg/dL Creatinine 0.98 (0.52-1.04) mg/dL Estimated GFR 72.1 ML/MIN Glucose 126 H (74-106) mg/dL Calcium 9.1 (8.4-10.2) mg/dL Total Bilirubin 1.20 (0.2-1.3) mg/dL AST 29 (14-36) U/L ALT 22 (0-35) U/L Alkaline Phosphatase 125 (38-126) U/L Serum Total Protein 8.8 H (6.3-8.2) g/dL Albumin 4.4 (3.5-5.0) g/dL Serum HCG, Qual NEGATIVE (NEGATIVE) - Progress Progress: improved Progress Note: 48-year-old female presents the emergency department for evaluation of right fla nk pain and continuous nausea and vomiting times a day laboratory workup shows polycythemia likely secondary to volume traction from nausea and vomiting. Slight leukocytosis otherwise normal chemistry. CT abdomen pelvis shows a small hiatal hernia fatty liver and mild aortic calcifications. No kidney stones or ureterolithiasis. Patient continually complaining of flank pain and experiencing nausea and vomiting. Patient's symptoms are intractable. Patient will be admitted for intractable nausea vomiting and abdominal pain. Case discussed with hospitalist Dr. Garcia who accepts admission at 12:47 PM. Plan of care discussed with patient. She agrees to admission [facility] for further evaluation and treatment. Portions of this note were created with voice recognition technology. There may be grammatical, spelling, punctuation or sound alike errors Complexity of problem addressed is moderate acute complicated No critical care time Complex of data reviewed and analyzed is extensive. Test ordered test reviewed results analyzed and correlated clinically with history and physical exam. Risk of complication or risk morbidity/mortality patient management is high. Patient will be admitted for further evaluation and treatment. Vital stable. Time spent admit patient approximately 20 minutes. Plan of care established via shared decision making. No social determinants of health present to impede follow-up. Portions of this note were created with voice recognition technology. There may be grammatical, spelling, punctuation or sound alike errors 10/08/23 12:54 Counseled pt/family regarding: lab results, diagnosis, need for follow-up, rad results - Departure Departure Disposition: Home Clinical Impression: Polycythemia, Flank pain, Nausea and vomiting, Small hiatal hernia, Fatty liver, Artery calcifications, Intractable abdominal pain Condition: Stable Critical Care Time: No Referrals: SHAE MORGAN NP [Primary Care Provider] - Follow up/PCP as directed Additional Instructions: Discharge/Care Plan ALLY LION was seen on 10/08/23 in the Emergency Room. The patient was counseled regarding Diagnosis,Lab results, Imaging studies, need for follow up and when to return to the Emergency Room. Prescriptions given: Discharge Note I have spoken with the patient and/or caregivers. I have explained the patient's condition, diagnosis and treatment plan based on the information available to me at this time. I have answered the patient's and/or caregiver's questions and addressed any concerns. The patient and/or caregivers have as good understanding of the patient's diagnosis, condition and treatment plan as can be expected at this point. The vital signs have been stable. The patient's condition is stable and appropriate for discharge from the emergency department. The patient will pursue further outpatient evaluation with the primary care physician or other designated or consulting physician as outlined in the discharge instructions. The patient and/or caregivers are agreeable to this plan of care and follow-up instructions have been explained in detail. The patient and/or caregivers have received these instruction. The patient/and or caregivers are aware that any significant change in condition or worsening of symptoms should prompt an immediate return to this or the closest emergency department or call 911.
[2023-10-08] MEDS: Sodium Chloride 0.9% 1000 ML 1,000 ML IV STA (10:53)
[2023-10-08] MEDS: TORAdol 30 mg Injection IV ONE (10:53)
[2023-10-08 10:55] LABS: Absolute Neutrophil Ct (ANC) 10.02 x10^3/uL (1.4-6.9); BASOPHIL % 0.6 % (0.0-0.4); Basophil (Absolute #) 0.08 x10^3/uL (0-0.4); Eosinophil % 1.2 % (0.00-5.0); Eosinophil (Absolute #) 0.15 x10^3/uL (0-0.5); Hemoglobin 16.3 g/dL (12.0-16.0); IMMATURE GRAN # 0.05 x10^3u/L (0.00-0.03); IMMATURE GRAN % 0.4 % (0.00-0.4); Lymphocyte (Absolute #) 1.87 x10^3/uL (1.0-4.6); Lymphocytes % 14.8 % (24.0-44.0); Mean Cell Volume 84.8 fL (78-100); Mean Corpuscular Hemoglobin 28.8 pg (26-32); Mean Platelet Volume 9.9 fL (7.5-11.0); Monocyte (Absolute #) 0.44 x10^3/uL (0.0-1.3); Monocytes % 3.5 % (0.0-12.0); Neutrophil % 79.5 % (36.0-66.0); Platelet Count 318 x10^3/uL (150-450); Red Blood Count 5.66 x10^6/uL (4.1-5.4); Red Cell Distribution Width 13.5 % (11.5-14.0); White Blood Count 12.6 x10^3/uL (4.0-10.5)
[2023-10-08] MEDS ORDERED: BENADRYL 50 MG/ML ONE (11:01)
[2023-10-08] MEDS: BENADRYL 50 MG/ML IV ONE (11:03)
[2023-10-08 11:06] LABS: ALBUMIN 4.4 g/dL (3.5-5.0); ANION GAP 11.4 MEQ/L (5-15); BILIRUBIN,TOTAL 1.2 mg/dL (0.2-1.3); Calcium 9.1 mg/dL (8.4-10.2); Creatinine 1 0.98 mg/dL (0.52-1.04); EST GLOMERULAR FILTRATION RATE 72.1 ML/MIN; Potassium 3.6 mmol/L (3.5-5.1); Total Protein 8.8 g/dL (6.3-8.2)
[2023-10-08 11:49] LABS: HCG SERUM TEST NEGATIVE (NEGATIVE)
--- NOTE | 2023-10-08 12:26 | XRAY ---
Indication: Pain and vomiting. Multiple contiguous axial images obtained through the abdomen and pelvis without contrast. Comparison: July 17, 2023 Lung bases remain clear. Heart not enlarged. New small hiatal hernia. Noncontrasted stomach and bowel loops appear nonobstructed again with normal appendix. Stable fatty liver and cholecystectomy. No free fluid/air. Remaining liver, pancreas, spleen, adrenal glands, kidneys, ureters, bladder, and uterus are unremarkable for noncontrast exam. Very minimal distal aortic calcifications without AAA. Osseous structures intact again with mild generative changes throughout thoracolumbar spine. Impression: New small hiatal hernia. Again fatty liver and minimal aortic calcifications. No acute intra-abdominal/pelvic findings on this noncontrast exam.
[2023-10-08] MEDS ORDERED: MORPHINE SULFATE 4 MG INJ ONE (13:05)
[2023-10-08] MEDS: MORPHINE SULFATE 4 MG INJ IV ONE (13:06)
[2023-10-08 13:14] LABS: HCG URINE TEST NEGATIVE (NEGATIVE)
[2023-10-08] MEDS ORDERED: Cyclobenzaprine 10 MG PO PRN (14:41)
[2023-10-08] MEDS ORDERED: NON-FORMULARY ITEM (Progesterone, Micronized [Progesterone] 200 MG Capsule) PO SCH (14:45)
[2023-10-08] MEDS ORDERED: MEDICATION INTERVENTION MC SCH ×2 (15:00)
[2023-10-08] MEDS: Compazine 10 MG/2 ML IV PRN (15:05)
--- NOTE | 2023-10-08 15:08 | PCM.HP ---
History of Present Illness - Chief Complaint Chief Complaint: Abdominal Pain Date: 10/08/23 History of Present Illness: is a 48-year-old female with a history of kidney stones, hypothyroidism, and chronic pain currently on suboxone. She has a hx of cannabis hyperemesis syndrome at a previous visit. She presented to our emergency department via EMS for evaluation of acute onset right flank pain that started yesterday. Pain is got progressively worse. Patient states the pain radiates from her right flank to her right groin area causing nausea and vomiting. She has not been able to take her nausea medication. Patient's symptoms are progressive symptoms are moderate in intensity. No specific worsening improving factors. Pain is similar to her previous pain at which time she was diagnosed with a ureteral lithiasis. No associated chest pain or shortness of breath. Patient is nauseous and vomiting. CT abd/pelivis negative. discussed results with pt. She reports she has not had her suboxone in 2 days as she has been vomiting. She feels she needs anxiety medication and will add compazine for anxiety and N/V. She states she does not want to take her suboxone as it has a weird tatste and will make her vomit. Explained that withdrawal sxs from suboxone can be similar to what she is experiencing and suggested she have a family member bring in her medication. She has been incontinent of urine and they have been unable to get a urine sample to check UDS and for UA. She is refusing a heating pad for abd pain and states it will make her sxs worse. - Review of Systems Constitutional: No Fever, No Chills Eyes: No Symptoms Ears, Nose, & Throat: No Symptoms Respiratory: No Cough, No Short Of Breath Cardiac: No Chest Pain, No Edema, No Syncope Abdominal/Gastrointestinal: Abdominal Pain, Nausea, Vomiting, No Diarrhea Genitourinary Symptoms: Incontinence, No Dysuria Musculoskeletal: No Back Pain, No Neck Pain Skin: No Rash Neurological: No Dizziness, No Focal Weakness, No Sensory Changes Psychological: No Symptoms, Emotional Lability, Mood Changes Endocrine: No Symptoms Hematologic/Lymphatic: No Symptoms Immunological/Allergic: No Symptoms Medications & Allergies Home Medications: Home Medication List Tizanidine HCl 4 mg [Zanaflex 4 MG] 4 mg PO DAILY 07/28/20 [History Confirmed 10/08/23] Gabapentin [Neurontin] 800 mg PO TID 01/05/21 [History Confirmed 10/08/23] Buprenorphine HCl/Naloxone HCl [Suboxone 8 mg-2 mg Sl Film] 1 each SL BID 07/17/23 [History Confirmed 10/08/23] calcitrioL [Calcitriol] 0.5 mcg PO BID 07/17/23 [History Confirmed 10/08/23] Cyclobenzaprine HCl 10 mg [Cyclobenzaprine 10 MG] 10 mg PO BIDPRN PRN 10/08/23 [History Confirmed 10/08/23] Levothyroxine Sodium 125 mcg PO DAILY 10/08/23 [History Confirmed 10/08/23] Progesterone, Micronized [Progesterone] 200 mg PO UD 10/08/23 [History Confirmed 10/08/23] lisinopriL [Lisinopril] 5 mg PO DAILY 10/08/23 [History Confirmed 10/08/23] Allergies/Adverse Reactions: Allergies Allergy/AdvReac Type Severity Reaction Status Date / Time sulfamethoxazole Allergy Intermediate Hives Verified 10/08/23 10:35 [From ] trimethoprim [From ] Allergy Intermediate Hives Verified 10/08/23 10:35 adhesive AdvReac Intermediate Rash Verified 10/08/23 10:35 - Past Medical History Past Medical History: Yes Neurological History: Migraines ENT History: No Pertinent History Cardiac History: Hypertension Respiratory History: Other Endocrine Medical History: Hypothyroidism, Other Musculoskelatal History: Arthritis GI Medical History: GERD History: Other Pyscho-Social History: Anxiety, Depression Reproductive Disorders: Abnormal Uterine Bleeding Comment: COVID-19, hx of kidney stones x3 (s/p stent placement and removal), tailbone fracture, ankylosing spondylitis. thyroidectomy, cholecystectomy, B carpal tunnel releases (~4 years ago), EMG to B hands (end of 2021/beginning of 2022, did not attend follow-up visit) - Female History Hx Last Menstrual Period: menopausal Are you now?: No - Past Surgical History Past Surgical History: Yes Neuro Surgical History: No Pertinent History Cardiac History: No Pertinent History Respiratory Surgery: No Pertinent History GI Surgical History: No Pertinent History Genitourinary Surgical Hx: Other Musculskeletal Surgical Hx: No Pertinent History Female Surgical History: No Pertinent History Other Surgical History: thyroid/parathyroidectomy. renal stents d/t stones - Social History Smoking Status: Current every day smoker How long have you smoked: Since teen Exposure to second hand smoke: Yes Alcohol: None Drug Use: marijuana - Social Determinants of Health Will the patient participate in the screening: Unable to obtain - Physical Exam Vital Signs: Vital Signs - 24 hr Temp Pulse Resp BP BP Pulse Ox 10/08/23 14:26 98.1 F 62 20 213/100 98 10/08/23 12:57 98 10/08/23 12:31 142/111 10/08/23 12:15 95 H 21 201/113 100 10/08/23 12:14 92 H 25 H 98 10/08/23 11:31 7 L 177/104 89 L 10/08/23 11:01 62 8 L 148/104 84 L 10/08/23 10:36 98.1 F 66 18 208/92 99 General Appearance: alert, anxiety Neurologic Exam: alert, oriented x 3, nml cerebellar function, nml station & gait, sensation nml, agitation, No motor deficits Eye Exam: PERRL/EOMI, eyes nml inspection Ears, Nose, Throat Exam: normal ENT inspection, TMs normal, pharynx normal, moist mucous membranes Neck Exam: normal inspection, non-tender, supple, full range of motion Respiratory Exam: normal breath sounds, lungs clear, No respiratory distress Cardiovascular Exam: regular rate/rhythm, normal heart sounds, normal peripheral pulses Gastrointestinal/Abdomen Exam: soft, tenderness (generlaized), No mass Back Exam: normal inspection, normal range of motion, No CVA tenderness, No vertebral tenderness Extremity Exam: normal inspection, normal range of motion, pelvis stable Skin Exam: normal color, warm, dry, No rash Lymphatic Exam: No adenopathy Results - Labs Lab/Micro Results: Lab Results-Last 24 Hours 10/08/23 10/08/23 10/08/23 Range/Units 10:45 10:45 Unknown WBC 12.6 H (4.0-10.5) x10^3/uL RBC 5.66 H (4.1-5.4) x10^6/uL Hgb 16.3 H (12.0-16.0) g/dL Hct 48.0 H (35-47) % MCV 84.8 (78-100) fL MCH 28.8 (26-32) pg MCHC 34.0 (32-36) g/dL RDW 13.5 (11.5-14.0) % Plt Count 318 (150-450) x10^3/uL MPV 9.9 (7.5-11.0) fL Gran % 79.5 H (36.0-66.0) % Immature Gran % (Auto) 0.4 (0.00-0.4) % Nucleat RBC Rel Count 0.0 (0.00-0.1) % Eos # (Auto) 0.15 (0-0.5) x10^3/uL Immature Gran # (Auto) 0.05 H (0.00-0.03) x10^3u/L Absolute Lymphs (auto) 1.87 (1.0-4.6) x10^3/uL Absolute Monos (auto) 0.44 (0.0-1.3) x10^3/uL Absolute Nucleated RBC 0.00 (0.00-0.01) x10^3u/L Lymphocytes % 14.8 L (24.0-44.0) % Monocytes % 3.5 (0.0-12.0) % Eosinophils % 1.2 (0.00-5.0) % Basophils % 0.6 (0.0-0.4) % Absolute Granulocytes 10.02 H (1.4-6.9) x10^3/uL Basophils # 0.08 (0-0.4) x10^3/uL Sodium 140 (135-145) mmol/L Potassium 3.6 (3.5-5.1) mmol/L Chloride 105 (98-107) mmol/L Carbon Dioxide 27 (22-30) mmol/L Anion Gap 11.4 (5-15) MEQ/L BUN 11 (7-17) mg/dL Creatinine 0.98 (0.52-1.04) mg/dL Estimated GFR 72.1 ML/MIN Glucose 126 H (74-106) mg/dL Calcium 9.1 (8.4-10.2) mg/dL Total Bilirubin 1.20 (0.2-1.3) mg/dL AST 29 (14-36) U/L ALT 22 (0-35) U/L Alkaline Phosphatase 125 (38-126) U/L Serum Total Protein 8.8 H (6.3-8.2) g/dL Albumin 4.4 (3.5-5.0) g/dL Serum HCG, Qual (NEGATIVE) Urine HCG, Qual NEGATIVE (NEGATIVE) 10/08/23 Range/Units Unknown WBC (4.0-10.5) x10^3/uL RBC (4.1-5.4) x10^6/uL Hgb (12.0-16.0) g/dL Hct (35-47) % MCV (78-100) fL MCH (26-32) pg MCHC (32-36) g/dL RDW (11.5-14.0) % Plt Count (150-450) x10^3/uL MPV (7.5-11.0) fL Gran % (36.0-66.0) % Immature Gran % (Auto) (0.00-0.4) % Nucleat RBC Rel Count (0.00-0.1) % Eos # (Auto) (0-0.5) x10^3/uL Immature Gran # (Auto) (0.00-0.03) x10^3u/L Absolute Lymphs (auto) (1.0-4.6) x10^3/uL Absolute Monos (auto) (0.0-1.3) x10^3/uL Absolute Nucleated RBC (0.00-0.01) x10^3u/L Lymphocytes % (24.0-44.0) % Monocytes % (0.0-12.0) % Eosinophils % (0.00-5.0) % Basophils % (0.0-0.4) % Absolute Granulocytes (1.4-6.9) x10^3/uL Basophils # (0-0.4) x10^3/uL Sodium (135-145) mmol/L Potassium (3.5-5.1) mmol/L Chloride (98-107) mmol/L Carbon Dioxide (22-30) mmol/L Anion Gap (5-15) MEQ/L BUN (7-17) mg/dL Creatinine (0.52-1.04) mg/dL Estimated GFR ML/MIN Glucose (74-106) mg/dL Calcium (8.4-10.2) mg/dL Total Bilirubin (0.2-1.3) mg/dL AST (14-36) U/L ALT (0-35) U/L Alkaline Phosphatase (38-126) U/L Serum Total Protein (6.3-8.2) g/dL Albumin (3.5-5.0) g/dL Serum HCG, Qual NEGATIVE (NEGATIVE) Urine HCG, Qual (NEGATIVE) - Radiology Impressions Radiology Exams & Impressions: Radiology Procedures Category Date Time Status ABDOMEN AND PELVIS W/0 CONTRAS [CT] Stat Exams 10/08/23 10:35 Completed - Other Procedures and Tests Respiratory Therapy 10/08/23 14:44 Smoking Cessation Education ONCE Assessment/Plan (1) Nausea and vomiting Current Visit: Yes Status: Acute Assessment & Plan: - UDS and UA pending - HX of previous admission with cannabis hyperemesis syndrome and similar sxs - She has not had her suboxone in 2 days and withdrawl sxs are similar to what she is describing. - CT abd neagtive for acute concern - Zofran and compazine PRN N/V - Tele Code(s): R11.2 - NAUSEA WITH VOMITING, UNSPECIFIED (2) Abdominal pain Current Visit: No Status: Acute Assessment & Plan: - CT negative - refused heating pad. - advised restart suboxone - UA, UDS pending Code(s): R10.9 - UNSPECIFIED ABDOMINAL PAIN (3) Smoker Current Visit: Yes Status: Acute Assessment & Plan: - advised cessation - nicotine patch Code(s): F17.200 - NICOTINE DEPENDENCE, UNSPECIFIED, UNCOMPLICATED (4) Hypothyroidism Current Visit: Yes Status: Chronic Assessment & Plan: - continue synthroid - TSH in AM Code(s): E03.9 - HYPOTHYROIDISM, UNSPECIFIED (5) Obesity (BMI 30.0-34.9) Current Visit: Yes Status: Chronic Assessment & Plan: - advised diet and exercise control Code(s): E66.9 - OBESITY, UNSPECIFIED (6) Marijuana smoker Current Visit: Yes Status: Chronic Assessment & Plan: - sxs may be related to h cannabis hyperemesis syndrome - as she has been ad mitted for this before. - Advised cessation - advised nurse to provide hot shower if this is causing sxs. - Protonix - meds for N/V PRN Code(s): F12.90 - CANNABIS USE, UNSPECIFIED, UNCOMPLICATED (7) Opioid dependence Current Visit: Yes Status: Chronic Assessment & Plan: - Continue suboxone - reports she has not had for 2 days, may be experiencing withdrawal sxs. - advised pt to ask family member to bring in as she does not have medication with her. Code(s): F11.20 - OPIOID DEPENDENCE, UNCOMPLICATED (8) Anxiety Current Visit: Yes Status: Acute Assessment & Plan: - Benadryl gave in ER - unable to give hydroxyzine as it causes QT prolongation with Suboxone - Avoid benzos - Compazine IV Q6 PRN VTE: Lovenox PPI: protonix Next if Kin: Kena Anthony, mother D/c plan: 1-2 days Code status: Full Code(s): F41.9 - ANXIETY DISORDER, UNSPECIFIED Telemedicine Encounter - Telemedicine Encounter Telemedicine Encounter: The entirety of this encounter was performed via Telemedicine"
[2023-10-08] MEDS: Neurontin PO SCH (15:10)
[2023-10-08] MEDS: Sodium Chloride 0.9% 1000 ML 1,000 ML IV SCH (16:55)
[2023-10-08] MEDS: Nicoderm CQ 21 MG TOP SCH (16:56)
[2023-10-08] MEDS: PROTONIX 40 MG IV IV SCH (16:56)
[2023-10-08] MEDS ORDERED: APRESOLINE 20 MG/ML INJ IV PRN (17:55)
[2023-10-08] MEDS: APRESOLINE 20 MG/ML INJ IV ONE (18:31)
[2023-10-08] MEDS: Zofran 4 MG/2 ML VIAL IV PRN (18:37)
[2023-10-08 19:09] LABS: Appearance Clear (Clear); Bacteria None Seen /HPF (None Seen); Bilirubin Negative (Negative); Blood Trace (Negative); Epithelial Cells None Seen /HPF (None Seen); Glucose, Urine Negative (Negative); Hyaline Casts NONE SEEN /LPF (0-2); Ketones 15 (Negative); Leukocyte Esterase Negative (Negative); Nitrite Negative (Negative); Ph 8.5 (4.6-8.0); Protein,Urine Dip Negative (Negative); Urobilinogen 0.2 mg/dL (0.2); WBC 0-2 /HPF (0-5)
[2023-10-08 19:10] LABS: ADD URINE CULTURE? NO (NO)
[2023-10-08 19:19] LABS: Amphetamine,Urine NEGATIVE (NEGATIVE); Barbiturate,Urine NEGATIVE (NEGATIVE); Benzodiazepine,Urine NEGATIVE (NEGATIVE); Cocaine,Urine NEGATIVE (NEGATIVE); Methadone,Urine NEGATIVE (NEGATIVE); Opiate,Urine POSITIVE (NEGATIVE); PCP,Urine NEGATIVE (NEGATIVE); THC,Urine POSITIVE (NEGATIVE)
[2023-10-08] MEDS: Zestril 5 MG PO STA (20:03)
[2023-10-08] MEDS: NON-FORMULARY ITEM SL SCH (21:14)
[2023-10-08] MEDS ORDERED: NON-FORMULARY ITEM (Buprenorphine Hcl/Naloxone Hcl [Suboxone 8 Mg-2 Mg Sl Film] 1 EACH Fil SL SCH (22:00)
[2023-10-09 05:16] LABS: Hematocrit 46.5 % (35-47); Hemoglobin 15.7 g/dL (12.0-16.0); Mean Cell Volume 84.7 fL (78-100); Mean Corpuscular Hemoglobin 28.6 pg (26-32); Mean Corpuscular Hgb Concent. 33.8 g/dL (32-36); Mean Platelet Volume 10.4 fL (7.5-11.0); Platelet Count 275 x10^3/uL (150-450); Red Blood Count 5.49 x10^6/uL (4.1-5.4); White Blood Count 11.6 x10^3/uL (4.0-10.5)
[2023-10-09 06:09] LABS: ALBUMIN 4.1 g/dL (3.5-5.0); ANION GAP 11.9 MEQ/L (5-15); BILIRUBIN,TOTAL 1.4 mg/dL (0.2-1.3); Calcium 7.6 mg/dL (8.4-10.2); Creatinine 1 0.88 mg/dL (0.52-1.04); Potassium 3.2 mmol/L (3.5-5.1); TSH, 3RD Generation 0.829 mIU/L (0.470-4.680); Total Protein 7.6 g/dL (6.3-8.2)
[2023-10-09 08:32] VITALS: RESP 17
[2023-10-09] MEDS: Klor Con PO SCH (09:58)
[2023-10-09] MEDS: ENOXAPARIN SODIUM SQ SCH (10:01)
[2023-10-09] MEDS: Zestril 5 MG PO SCH (10:02)
[2023-10-09] MEDS: SYNTHROID 125 MCG PO SCH (10:02)
[2023-10-09] MEDS: Zanaflex 4 MG PO SCH (10:02)
--- NOTE | 2023-10-09 11:12 | PCM.DS ---
Discharge Summary Date of Admission: 10/08/23 13:30 Date of Discharge: 10/09/23 Admitting Physician: MANUELA WALSH MD Primary Care Provider: SHAE AQUINO EDDIE Allergies Allergies sulfamethoxazole [From Febra] Allergy (Intermediate, Verified 10/08/23 10:35) Hives trimethoprim [From Febra] Allergy (Intermediate, Verified 10/08/23 10:35) Hives adhesive Adverse Reaction (Intermediate, Verified 10/08/23 10:35) Rash Hospital Summary - Hospital Course Hospital Course: 10/08/23 is a 48-year-old female with a history of kidney stones, hyp othyroidism, and chronic pain currently on suboxone. She has a hx of cannabis hyperemesis syndrome at a previous visit. She presented to our emergency department via EMS for evaluation of acute onset right flank pain that started yesterday. Pain is got progressively worse. Patient states the pain radiates from her right flank to her right groin area causing nausea and vomiting. She has not been able to take her nausea medication. Patient's symptoms are progressive symptoms are moderate in intensity. No specific worsening improving factors. Pain is similar to her previous pain at which time she was diagnosed with a ureteral lithiasis. No associated chest pain or shortness of breath. Patient is nauseous and vomiting. CT abd/pelivis negative. discussed results with pt. She reports she has not had her suboxone in 2 days as she has been vomiting. She feels she needs anxiety medication and will add compazine for anxiety and N/V. She states she does not want to take her suboxone as it has a weird tatste and will make her vomit. Explained that withdrawal sxs from suboxone can be similar to what she is experiencing and suggested she have a family member bring in her medication. She has been incontinent of urine and they have been unable to get a urine sample to check UDS and for UA. She is refusing a heating pad for abd pain and states it will make her sxs worse. 10/09/23 Pt resting in bed. She explains she feels much better today. She is no longer having N/V, or abd pain. She is wanting to go home. Discussed labs with pt and that bili is a bit elevated. She will need to f/u OP for repeat labs. She is agreeable and again wants to go home today. Advised pt to stop smoking marijuana as her sxs are most likely related to this. She explained she does not feel her sxs are related to this but is willing to cut back on this. Advised cessation as to prevent readmission. K+ and Mg+ replaced. She denies any further concerns at this time. - Vitals & Intake/Output Vital Signs: Vital Signs Temperature 97.5 F 10/09/23 08:00 Pulse Rate 86 10/09/23 08:00 Respiratory Rate 17 10/09/23 08:00 Blood Pressure 149/89 10/09/23 08:00 O2 Sat by Pulse Oximetry 94 L 10/09/23 08:00 Intake & Output: Intake & Output 10/06/23 10/07/23 10/08/23 10/09/23 11:59 11:59 11:59 11:59 Intake Total 1857 Output Total 1350 Balance 507 Weight 94.3 kg 92.1 kg - Lab Result Diagrams: 10/09/23 04:23 10/09/23 04:23 Lab Results-Last 24 Hrs: Lab Results-Last 24 Hours 10/08/23 10/08/23 10/08/23 Range/Units 10:45 19:00 19:00 WBC (4.0-10.5) x10^3/uL RBC (4.1-5.4) x10^6/uL Hgb (12.0-16.0) g/dL Hct (35-47) % MCV (78-100) fL MCH (26-32) pg MCHC (32-36) g/dL RDW (11.5-14.0) % Plt Count (150-450) x10^3/uL MPV (7.5-11.0) fL Sodium 140 (135-145) mmol/L Potassium 3.6 (3.5-5.1) mmol/L Chloride 105 (98-107) mmol/L Carbon Dioxide 27 (22-30) mmol/L Anion Gap 11.4 (5-15) MEQ/L BUN 11 (7-17) mg/dL Creatinine 0.98 (0.52-1.04) mg/dL Estimated GFR 72.1 ML/MIN Glucose 126 H (74-106) mg/dL Hemoglobin A1c (4.5-6.0) % Calcium 9.1 (8.4-10.2) mg/dL Magnesium (1.6-2.3) mg/dL Total Bilirubin 1.20 (0.2-1.3) mg/dL AST 29 (14-36) U/L ALT 22 (0-35) U/L Alkaline Phosphatase 125 (38-126) U/L Serum Total Protein 8.8 H (6.3-8.2) g/dL Albumin 4.4 (3.5-5.0) g/dL TSH 3rd Generation (0.470-4.680) mIU/L Serum HCG, Qual (NEGATIVE) Urine Color Yellow (Yellow) Urine Appearance Clear (Clear) Urine pH 8.5 A (4.6-8.0) Ur Specific [place] 1.010 (1.005-1.030) Urine Protein Negative (Negative) Urine Glucose (UA) Negative (Negative) mg/dL Urine Ketones 15 A (Negative) Urine Blood Trace (Negative) Urine Nitrite Negative (Negative) Urine Bilirubin Negative (Negative) Urine Urobilinogen 0.2 (0.2) mg/dL Ur Leukocyte Esterase Negative (Negative) U Hyaline Cast (Auto) NONE SEEN (0-2) /LPF Urine Microscopic RBC 6-10 A (0-5) /HPF Urine Microscopic WBC 0-2 (0-5) /HPF Ur Epithelial Cells None Seen (None Seen) /HPF Urine Bacteria None Seen (None Seen) /HPF Urine Culture Reflexed NO (NO) Urine HCG, Qual (NEGATIVE) Urine Opiates Level POSITIVE A (NEGATIVE) Ur Methadone NEGATIVE (NEGATIVE) Urine Barbiturates NEGATIVE (NEGATIVE) Ur Phencyclidine (PCP) NEGATIVE (NEGATIVE) Urine Amphetamine NEGATIVE (NEGATIVE) U Benzodiazepine Level NEGATIVE (NEGATIVE) Urine Cocaine NEGATIVE (NEGATIVE) Urine Marijuana (THC) POSITIVE A (NEGATIVE) 10/08/23 10/08/23 10/09/23 Range/Units Unknown Unknown 04:23 WBC 11.6 H (4.0-10.5) x10^3/uL RBC 5.49 H (4.1-5.4) x10^6/uL Hgb 15.7 (12.0-16.0) g/dL Hct 46.5 (35-47) % MCV 84.7 (78-100) fL MCH 28.6 (26-32) pg MCHC 33.8 (32-36) g/dL RDW 14.0 (11.5-14.0) % Plt Count 275 (150-450) x10^3/uL MPV 10.4 (7.5-11.0) fL Sodium (135-145) mmol/L Potassium (3.5-5.1) mmol/L Chloride (98-107) mmol/L Carbon Dioxide (22-30) mmol/L Anion Gap (5-15) MEQ/L BUN (7-17) mg/dL Creatinine (0.52-1.04) mg/dL Estimated GFR ML/MIN Glucose (74-106) mg/dL Hemoglobin A1c (4.5-6.0) % Calcium (8.4-10.2) mg/dL Magnesium (1.6-2.3) mg/dL Total Bilirubin (0.2-1.3) mg/dL AST (14-36) U/L ALT (0-35) U/L Alkaline Phosphatase (38-126) U/L Serum Total Protein (6.3-8.2) g/dL Albumin (3.5-5.0) g/dL TSH 3rd Generation (0.470-4.680) mIU/L Serum HCG, Qual NEGATIVE (NEGATIVE) Urine Color (Yellow) Urine Appearance (Clear) Urine pH (4.6-8.0) Ur Specific [place] (1.005-1.030) Urine Protein (Negative) Urine Glucose (UA) (Negative) mg/dL Urine Ketones (Negative) Urine Blood (Negative) Urine Nitrite (Negative) Urine Bilirubin (Negative) Urine Urobilinogen (0.2) mg/dL Ur Leukocyte Esterase (Negative) U Hyaline Cast (Auto) (0-2) /LPF Urine Microscopic RBC (0-5) /HPF Urine Microscopic WBC (0-5) /HPF Ur Epithelial Cells (None Seen) /HPF Urine Bacteria (None Seen) /HPF Urine Culture Reflexed (NO) Urine HCG, Qual NEGATIVE (NEGATIVE) Urine Opiates Level (NEGATIVE) Ur Methadone (NEGATIVE) Urine Barbiturates (NEGATIVE) Ur Phencyclidine (PCP) (NEGATIVE) Urine Amphetamine (NEGATIVE) U Benzodiazepine Level (NEGATIVE) Urine Cocaine (NEGATIVE) Urine Marijuana (THC) (NEGATIVE) 10/09/23 10/09/23 10/09/23 Range/Units 04:23 04:23 04:30 WBC (4.0-10.5) x10^3/uL RBC (4.1-5.4) x10^6/uL Hgb (12.0-16.0) g/dL Hct (35-47) % MCV (78-100) fL MCH (26-32) pg MCHC (32-36) g/dL RDW (11.5-14.0) % Plt Count (150-450) x10^3/uL MPV (7.5-11.0) fL Sodium 138 (135-145) mmol/L Potassium 3.2 L (3.5-5.1) mmol/L Chloride 105 (98-107) mmol/L Carbon Dioxide 24 (22-30) mmol/L Anion Gap 11.9 (5-15) MEQ/L BUN 9 (7-17) mg/dL Creatinine 0.88 (0.52-1.04) mg/dL Estimated GFR 82.0 ML/MIN Glucose 116 H (74-106) mg/dL Hemoglobin A1c 5.54 (4.5-6.0) % Calcium 7.6 L D (8.4-10.2) mg/dL Magnesium 1.4 L (1.6-2.3) mg/dL Total Bilirubin 1.40 H (0.2-1.3) mg/dL AST 25 (14-36) U/L ALT 17 (0-35) U/L Alkaline Phosphatase 100 (38-126) U/L Serum Total Protein 7.6 (6.3-8.2) g/dL Albumin 4.1 (3.5-5.0) g/dL TSH 3rd Generation 0.829 (0.470-4.680) mIU/L Serum HCG, Qual (NEGATIVE) Urine Color (Yellow) Urine Appearance (Clear) Urine pH (4.6-8.0) Ur Specific [place] (1.005-1.030) Urine Protein (Negative) Urine Glucose (UA) (Negative) mg/dL Urine Ketones (Negative) Urine Blood (Negative) Urine Nitrite (Negative) Urine Bilirubin (Negative) Urine Urobilinogen (0.2) mg/dL Ur Leukocyte Esterase (Negative) U Hyaline Cast (Auto) (0-2) /LPF Urine Microscopic RBC (0-5) /HPF Urine Microscopic WBC (0-5) /HPF Ur Epithelial Cells (None Seen) /HPF Urine Bacteria (None Seen) /HPF Urine Culture Reflexed (NO) Urine HCG, Qual (NEGATIVE) Urine Opiates Level (NEGATIVE) Ur Methadone (NEGATIVE) Urine Barbiturates (NEGATIVE) Ur Phencyclidine (PCP) (NEGATIVE) Urine Amphetamine (NEGATIVE) U Benzodiazepine Level (NEGATIVE) Urine Cocaine (NEGATIVE) Urine Marijuana (THC) (NEGATIVE) - Radiology Exams Ordered Rad Exams-Entire Visit: Radiology Procedures Category Date Time Status ABDOMEN AND PELVIS W/0 CONTRAS [CT] Stat Exams 10/08/23 10:35 Completed - Procedures and Test Procedures and Tests throughout Hospitalization: Therapy Orders & Screens 10/08/23 14:44 Smoking Cessation Education ONCE Comment: Diagnosis: Abdominal Pain Smoking Status: Current every day smoker How long have you smoked: Since teen Have you smoked in the past 12 months: Yes Approximately how many cigarettes per day: 5-6 Do you dip or chew tobacco: No Discharge Exam General Appearance: no apparent distress, alert Neurologic Exam: alert, oriented x 3, cooperative, normal mood/affect, nml cerebellar function, sensation nml, No motor deficits Eye Exam: PERRL, EOMI, eyes nml inspection Ears, Nose, Throat Exam: normal ENT inspection, pharynx normal, moist mucous membranes Neck Exam: normal inspection, non-tender, supple, full range of motion Respiratory Exam: normal breath sounds, lungs clear, No respiratory distress Cardiovascular Exam: regular rate/rhythm, normal heart sounds Gastrointestinal/Abdomen Exam: soft, No tenderness, No mass Pelvic Exam: deferred Rectal Exam: deferred Back Exam: normal inspection, normal range of motion, No CVA tenderness, No vertebral tenderness Extremity Exam: normal inspection, normal range of motion Skin Exam: normal color, warm, dry Final Diagnosis/Problem List - Final Discharge Diagnosis/Problem (1) Nausea and vomiting Current Visit: Yes Status: Acute Code(s): R11.2 - NAUSEA WITH VOMITING, UNSPECIFIED (2) Abdominal pain Current Visit: No Status: Acute Code(s): R10.9 - UNSPECIFIED ABDOMINAL PAIN (3) Smoker Current Visit: Yes Status: Acute Code(s): F17.200 - NICOTINE DEPENDENCE, UNSPECIFIED, UNCOMPLICATED (4) Hypothyroidism Current Visit: Yes Status: Chronic Code(s): E03.9 - HYPOTHYROIDISM, UNSP ECIFIED (5) Obesity (BMI 30.0-34.9) Current Visit: Yes Status: Chronic Code(s): E66.9 - OBESITY, UNSPECIFIED (6) Marijuana smoker Current Visit: Yes Status: Chronic Code(s): F12.90 - CANNABIS USE, UNSPECIFIED, UNCOMPLICATED (7) Opioid dependence Current Visit: Yes Status: Chronic Code(s): F11.20 - OPIOID DEPENDENCE, UNCOMPLICATED (8) Anxiety Current Visit: Yes Status: Acute Assessment & Plan: (1) Nausea and vomiting Current Visit: Yes Status: Acute Assessment & Plan: - UDS and UA pending - HX of previous admission with cannabis hyperemesis syndrome and similar sxs - She has not had her suboxone in 2 days and withdrawl sxs are similar to what she is describing. - CT abd neagtive for acute concern - Zofran and compazine PRN N/V - Tele 10/08 - resolved Code(s): R11.2 - NAUSEA WITH VOMITING, UNSPECIFIED (2) Abdominal pain Current Visit: No Status: Acute Assessment & Plan: - CT negative - refused heating pad. - advised restart suboxone - UA, UDS pending 10/08 - resolved - Bili 1.40- f/u with PCP for OP lab recheck Code(s): R10.9 - UNSPECIFIED ABDOMINAL PAIN (3) Smoker Current Visit: Yes Status: Acute Assessment & Plan: - advised cessation - nicotine patch Code(s): F17.200 - NICOTINE DEPENDENCE, UNSPECIFIED, UNCOMPLICATED (4) Hypothyroidism Current Visit: Yes Status: Chronic Assessment & Plan: - continue synthroid - TSH in AM 10/08 - TSH 0.829 Code(s): E03.9 - HYPOTHYROIDISM, UNSPECIFIED (5) Obesity (BMI 30.0-34.9) Current Visit: Yes Status: Chronic Assessment & Plan: - advised diet and exercise control Code(s): E66.9 - OBESITY, UNSPECIFIED (6) Marijuana smoker Current Visit: Yes Status: Chronic Assessment & Plan: - sxs may be related to h cannabis hyperemesis syndrome - as she has been admitted for this before. - Advised cessation - advised nurse to provide hot shower if this is causing sxs. - Protonix - meds for N/V PRN Code(s): F12.90 - CANNABIS USE, UNSPECIFIED, UNCOMPLICATED (7) Opioid dependence Current Visit: Yes Status: Chronic Assessment & Plan: - Continue suboxone - reports she has not had for 2 days, may be experiencing withdrawal sxs. - advised pt to ask family member to bring in as she does not have medication with her. Code(s): F11.20 - OPIOID DEPENDENCE, UNCOMPLICATED (8) Anxiety Current Visit: Yes Status: Acute Assessment & Plan: - Benadryl gave in ER - unable to give hydroxyzine as it causes QT prolongation with Suboxone - Avoid benzos - Compazine IV Q6 PRN 10/08 - resolved Code(s): F41.9 - ANXIETY DISORDER, UNSPECIFIED (9) Hypokalemia Current Visit: Yes Status: Acute Assessment & Plan: - K+ 3.2- replaced Code(s): E87.6 - HYPOKALEMIA (10) Hypomagnesemia Current Visit: Yes Status: Acute Assessment & Plan: - Mg+ 1.4- replaced Code(s): E83.42 - HYPOMAGNESEMIA - Discharge Discharge Date: 10/09/23 Disposition: Home, Self-Care Condition: Stable Prescriptions: Continue Tizanidine HCl 4 mg [Zanaflex 4 MG] 4 mg PO DAILY Gabapentin [Neurontin] 800 mg PO TID calcitrioL [Calcitriol] 0.5 mcg PO BID lisinopriL [Lisinopril] 5 mg PO DAILY Levothyroxine Sodium 125 mcg PO DAILY Cyclobenzaprine HCl 10 mg [Cyclobenzaprine 10 MG] 10 mg PO BIDPRN PRN PRN Reason: Muscle Spasms Progesterone, Micronized [Progesterone] 200 mg PO UD Buprenorphine HCl/Naloxone HCl [Buprenorphine-Nalox 8-2 mg Tab] 2 each SL DAILY Follow up with: SHAE MORGAN NP [Primary Care Provider] - 10/18/23 11:15 am
[2023-10-09 12:04] VITALS: BP 144/95; PULSE 72; TEMP 97.1; O2SAT 95
[2023-10-10] MEDS ORDERED: MAG-OX 400 PO ONE (11:05)
== END 2023-10-09 13:25 | disposition home or self-care (01) ==
LOC: ED 10:33 → MED SURG 13:30
PROVIDERS: ADMIT Internal Medicine; ATTEND Internal Medicine
DX: R11.2 Nausea with vomiting, unspecified (principal); R10.9 Unspecified abdominal pain; F17.200 Nicotine dependence, unspecified, uncomplicated; E03.9 Hypothyroidism, unspecified; E66.9 Obesity, unspecified; F12.90 Cannabis use, unspecified, uncomplicated; F11.20 Opioid dependence, uncomplicated; F41.9 Anxiety disorder, unspecified; E87.6 Hypokalemia; E83.42 Hypomagnesemia; I10 Essential (primary) hypertension; Z79.899 Other long term (current) drug therapy; Z86.16 Personal history of COVID-19
CPT/HCPCS: 36000; 36415; 74176; 80053; 80307; 81001; 81025; 83036; 83735; 84443; 84703; 85025; 85027; 96360; 96374; 96375; 99285; Q3014; 93268; J0360; J1200; J1650; J1885; J2270; J2405; A9270-GY; G0378

== ENCOUNTER 2024-02-25 06:56 | Emergency (ER) | payer OTHER ==
[2024-02-25 07:11] VITALS: TEMP 97
[2024-02-25 08:13] LABS: Absolute Neutrophil Ct (ANC) 11.12 x10^3/uL (1.56-6.13); BASOPHIL % 0.8 % (0.1-1.2); Basophil (Absolute #) 0.11 x10^3/uL (0.01-0.08); Eosinophil (Absolute #) 0.27 x10^3/uL (0.04-0.36); Hematocrit 44.3 % (34.1-44.9); Hemoglobin 14.7 g/dL (11.2-15.7); IMMATURE GRAN # 0.07 x10^3u/L (0.001-0.031); IMMATURE GRAN % 0.5 % (0.001-0.429); Lymphocytes % 12.4 % (19.3-51.7); Mean Cell Volume 87.2 fL (79.4-94.8); Mean Corpuscular Hemoglobin 28.9 pg (25.6-32.2); Mean Corpuscular Hgb Concent. 33.2 g/dL (32.2-35.5); Mean Platelet Volume 9.8 fL (9.4-12.3); Monocyte (Absolute #) 0.39 x10^3/uL (0.24-0.86); Monocytes % 2.9 % (4.7-12.5); Neutrophil % 81.4 % (34.0-71.1); Platelet Count 369 x10^3/uL (182-369); Red Blood Count 5.08 x10^6/uL (3.93-5.22); Red Cell Distribution Width 13.2 % (11.7-14.4); White Blood Count 13.7 x10^3/uL (3.98-10.04)
[2024-02-25 08:33] LABS: ALBUMIN 4.6 g/dL (3.5-5.0); BILIRUBIN,TOTAL 1.3 mg/dL (0.2-1.3); Calcium 9.9 mg/dL (8.4-10.2); Creatinine 1 0.75 mg/dL (0.52-1.04); EST GLOMERULAR FILTRATION RATE 99.4 ML/MIN; Potassium 3.5 mmol/L (3.5-5.1); Total Protein 7.9 g/dL (6.3-8.2)
[2024-02-25] MEDS ORDERED: MORPHINE SULFATE 4 MG INJ ONE ×2 (08:38→09:42)
[2024-02-25] MEDS: MORPHINE SULFATE 4 MG INJ IV ONE ×2 (08:39→09:45)
--- NOTE | 2024-02-25 08:40 | ERPHSYRPT ---
- History of Present Illness Time Seen by Provider: 02/25/24 07:10 Source: patient Exam Limitations: no limitations Patient Subjective Stated Complaint: R shoulder pain post surgery, vomiting x2 days Triage Nursing Assessment: pt presents to ED via [facility], pt alert and oriented x3, skin pwd, bandage noted to R shoulder, bandage clean and dry, no signs of reddness/swelling/drainage, pt rating pain 10/10 and states she has been out of her 7.5 mg norcos for 2 days, pt has R shoulder surgery on 02/[address] [facility] [address] Cuadra. pt yawning during triage and slightly slow to answer questions. pt occasionally yelling out Physician History: Patient is a 48-year-old female presents to our ED via EMS 12 days postop right shoulder arthroplasty at [facility] done by Dr. Cuadra. Patient states she ran out of her Powell 7.5's. Patient states that she has been vomiting. Generalized abdominal pain. Patient unable to tolerate p.o. Patient states she took her p.o. pain medication as prescribed however the vomiting caused her to vomit up the pills. Now patient ran out of her pills and is in severe pain. Pain described as an ache that is localized to the right shoulder. Pain worse with movement and palpation. Pain improved with rest. Patient otherwise feels well. She voices no other complaints or concerns at this time. Patient denies interval trauma. Portions of this note were created with voice recognition technology. There may be grammatical, spelling, punctuation or sound alike errors Timing/Duration: today Severity: moderate Modifying Factors: Improves With: nothing Associated Symptoms: denies symptoms Allergies/Adverse Reactions: sulfamethoxazole [From Septra] Allergy (Intermediate, Verified 10/08/23 10:35) Hives trimethoprim [From Septra] Allergy (Intermediate, Verified 10/08/23 10:35) Hives adhesive Adverse Reaction (Intermediate, Verified 10/08/23 10:35) Rash Home Medications: Tizanidine HCl 4 mg [Zanaflex 4 MG] 4 mg PO DAILY 07/28/20 [History] Gabapentin [Neurontin] 800 mg PO TID 01/05/21 [History] calcitrioL [Calcitriol] 0.5 mcg PO BID 07/17/23 [History] Buprenorphine HCl/Naloxone HCl [Buprenorphine-Nalox 8-2 mg Tab] 2 each SL DAILY 10/08/23 [History] Cyclobenzaprine HCl 10 mg [Cyclobenzaprine 10 MG] 10 mg PO BIDPRN PRN 10/08/23 [History] Levothyroxine Sodium 125 mcg PO DAILY 10/08/23 [History] Progesterone, Micronized [Progesterone] 200 mg PO UD 10/08/23 [History] lisinopriL [Lisinopril] 5 mg PO DAILY 10/08/23 [History] Hx Tetanus, Diphtheria Vaccination/Date Given: Yes Hx Influenza Vaccination/Date Given: No Hx Pneumococcal Vaccination/Date Given: No Immunizations Up to Date: No Travel Risk - International Travel Have you traveled outside of the country in past 3 weeks: No - Emerging Infectious Disease Are you exhibiting symptoms associated with any current EIDs: Yes Symptoms: Vomitting - Review of Systems Constitutional: No Symptoms, No Fever, No Chills Eyes: No Symptoms Ears, Nose, & Throat: No Symptoms Respiratory: No Symptoms, No Cough, No Dyspnea Cardiac: No Symptoms, No Chest Pain, No Edema, No Syncope Abdominal/Gastrointestinal: No Symptoms, No Abdominal Pain, No Nausea, No Vomiting, No Diarrhea Genitourinary Symptoms: No Symptoms, No Dysuria Musculoskeletal: No Symptoms, No Back Pain, No Neck Pain Skin: No Symptoms, No Rash Neurological: No Symptoms, No Dizziness, No Focal Weakness, No Sensory Changes Psychological: No Symptoms Endocrine: No Symptoms Hematologic/Lymphatic: No Symptoms Immunological/Allergic: No Symptoms All Other Systems: Reviewed and Negative - Past Medical History Pertinent Past Medical History: Yes Neurological History: Migraines ENT History: No Pertinent History Cardiac History: Hypertension Respiratory History: Other Endocrine Medical History: Hypothyroidism, Other Musculoskeletal History: Arthritis GI Medical History: GERD History: Other Psycho-Social History: Anxiety, Depression Female Reproductive Disorders: Abnormal Uterine Bleeding Other Medical History: COVID-19, hx of kidney stones x3 (s/p stent placement and removal), tailbone fracture, ankylosing spondylitis. thyroidectomy, cholecystectomy, B carpal tunnel releases (~4 years ago), EMG to B hands (end of 2021/beginning of 2022, did not attend follow-up visit) - Past Surgical History Past Surgical History: Yes Neuro Surgical History: No Pertinent History Cardiac: No Pertinent History Respiratory: No Pertinent History Gastrointestinal: No Pertinent History Genitourinary: Other Musculoskeletal: Orthopedic Surgery Female Surgical History: No Pertinent History Other Surgical History: thyroid/parathyroidectomy. R shoulder. renal stents d/t stones - Female History Hx Last Menstrual Period: post Hx Now: No - Social History Smoking Status: Current every day smoker How long have you smoked: Since teen Exposure to second hand smoke: Yes Drug Use: marijuana Patient Lives Alone: No (lives with son) - Social Determinants of Health Will the patient participate in the screening: Declined to provide - Nursing Vital Signs Nursing Vital Signs: Initial Vital Signs Pulse Rate 80 02/25/24 07:01 Respiratory Rate 21 02/25/24 07:01 Blood Pressure 153/133 02/25/24 07:01 O2 Sat by Pulse Oximetry 95 02/25/24 07:01 Pain Scale Pain Intensity 8 - Physical Exam General Appearance: no apparent distress, alert Eye Exam: PERRL/EOMI, eyes nml inspection Ears, Nose, Throat Exam: normal ENT inspection, TMs normal, pharynx normal, moist mucous membranes Neck Exam: normal inspection, non-tender, supple, full range of motion Respiratory Exam: normal breath sounds, lungs clear, airway intact, No respiratory distress Cardiovascular Exam: regular rate/rhythm, normal heart sounds, normal peripheral pulses Gastrointestinal/Abdomen Exam: soft, normal bowel sounds, No tenderness, No mass Back Exam: normal inspection, normal range of motion, No CVA tenderness, No vertebral tenderness Extremity Exam: normal inspection, normal range of motion, pelvis stable, other (Intact postsurgical dressing) Neurologic Exam: alert, oriented x 3, cooperative, normal mood/affect, nml cerebellar function, nml station & gait, sensation nml, No motor deficits Skin Exam: normal color, warm, dry, No rash Lymphatic Exam: No adenopathy SpO2 Interpretation: normal SpO2: 99 O2 Delivery: Room Air - Course Nursing assessment & vital signs reviewed: Yes EKG Interpreted by Me: RATE (64), Sinus Rhythm, NORMAL AXIS, NORMAL INTERVALS, NORMAL QRS - CT Exams Abdomen/Pelvis CT Interpretation: Tele-radiologist Report (No new or acute findings) Ordered Tests: Active Orders 24 hr Category Date Time Status [employer] Worker STAT Care 02/25/24 07:31 Completed EKG-ER Only STAT Care 02/25/24 07:30 Completed IV Insertion STAT Care 02/25/24 07:30 Completed Pulse Oximetry (ED) STAT Care 02/25/24 07:30 Completed ABDOMEN AND PELVIS W/0 CONTRAS [CT] Stat Exams 02/25/24 07:34 Completed CBC W DIFF Stat Lab 02/25/24 07:26 Completed CMP Stat Lab 02/25/24 07:26 Completed LIPASE Stat Lab 02/25/24 07:26 Completed TROPONIN Q4H Lab 02/25/24 07:26 Completed TROPONIN Q4H Lab 02/25/24 09:45 Completed TROPONIN Q4H Lab 02/25/24 15:30 Ordered Medication Summary Discontinued Medications Generic Name Dose Route Start Last Admin Trade Name Freq PRN Reason Stop Dose Admin Droperidol 1.25 mg 02/25/24 07:35 02/25/24 07:44 Droperidol 5 Mg/2 Ml Vial IV 02/25/24 07:36 1.25 mg STAT ONE Administration Droperidol Confirm 02/25/24 07:38 Droperidol 5 Mg/2 Ml Vial Administered 02/25/24 07:39 Dose 5 mg .ROUTE .STK-MED ONE Lisinopril 5 mg 02/25/24 09:40 02/25/24 09:50 Lisinopril 5 Mg Tablet PO 02/25/24 09:41 5 mg STAT STA Administration Metoprolol Tartrate 25 mg 02/25/24 09:39 02/25/24 09:45 Metoprolol Tartrate 25 Mg Tab PO 02/25/24 09:40 25 mg STAT ONE Administration Metoprolol Tartrate Confirm 02/25/24 09:43 Metoprolol Tartrate 25 Mg Tab Administered 02/25/24 09:44 Dose 25 mg .ROUTE .STK-MED ONE Morphine Sulfate 4 mg 02/25/24 08:25 02/25/24 08:39 Morphine Sulfate 4 Mg/Ml Injection IV 02/25/24 08:26 4 mg STAT ONE Administration Morphine Sulfate Confirm 02/25/24 08:38 Morphine Sulfate 4 Mg/Ml Injection Administered 02/25/24 08:39 Dose 4 mg .ROUTE .STK-MED ONE Morphine Sulfate 4 mg 02/25/24 09:35 02/25/24 09:45 Morphine Sulfate 4 Mg/Ml Injection IV 02/25/24 09:36 4 mg STAT ONE Administration Morphine Sulfate Confirm 02/25/24 09:42 Morphine Sulfate 4 Mg/Ml Injection Administered 02/25/24 09:43 Dose 4 mg .ROUTE .STK-MED ONE Lab/Rad Data: Laboratory Result Diagrams 02/25/24 07:26 02/25/24 07:26 Laboratory Results 02/25/24 02/25/24 02/25/24 Range/Units 09:45 07:26 07:26 WBC (3.98-10.04) x10^3/uL RBC (3.93-5.22) x10^6/uL Hgb (11.2-15.7) g/dL Hct (34.1-44.9) % MCV (79.4-94.8) fL MCH (25.6-32.2) pg MCHC (32.2-35.5) g/dL RDW (11.7-14.4) % Plt Count (182-369) x10^3/uL MPV (9.4-12.3) fL Gran % (34.0-71.1) % Immature Gran % (Auto) (0.001-0.429) % Nucleat RBC Rel Count (0.00-0.2) % Eos # (Auto) (0.04-0.36) x10^3/uL Immature Gran # (Auto) (0.001-0.031) x10^3u/L Absolute Lymphs (auto) (1.18-3.74) x10^3/uL Absolute Monos (auto) (0.24-0.86) x10^3/uL Absolute Nucleated RBC (0.00-0.012) x10^3u/L Lymphocytes % (19.3-51.7) % Monocytes % (4.7-12.5) % Eosinophils % (0.7-5.8) % Basophils % (0.1-1.2) % Absolute Granulocytes (1.56-6.13) x10^3/uL Basophils # (0.01-0.08) x10^3/uL Sodium 142 (135-145) mmol/L Potassium 3.5 (3.5-5.1) mmol/L Chloride 107 (98-107) mmol/L Carbon Dioxide 19 L (22-30) mmol/L Anion Gap 19.0 H (5-15) MEQ/L BUN 11 (7-17) mg/dL Creatinine 0.75 (0.52-1.04) mg/dL Estimated GFR 99.4 ML/MIN Glucose 137 H (74-106) mg/dL Calcium 9.9 (8.4-10.2) mg/dL Total Bilirubin 1.30 (0.2-1.3) mg/dL AST 50 H (14-36) U/L ALT 43 H (0-35) U/L Alkaline Phosphatase 166 H (38-126) U/L Troponin I < 0.012 0.016 (0.000-0.033) ng/mL Serum Total Protein 7.9 (6.3-8.2) g/dL Albumin 4.6 (3.5-5.0) g/dL Lipase 100 (23-300) U/L 02/25/24 Range/Units 07:26 WBC 13.7 H (3.98-10.04) x10^3/uL RBC 5.08 (3.93-5.22) x10^6/uL Hgb 14.7 (11.2-15.7) g/dL Hct 44.3 (34.1-44.9) % MCV 87.2 (79.4-94.8) fL MCH 28.9 (25.6-32.2) pg MCHC 33.2 (32.2-35.5) g/dL RDW 13.2 (11.7-14.4) % Plt Count 369 (182-369) x10^3/uL MPV 9.8 (9.4-12.3) fL Gran % 81.4 H (34.0-71.1) % Immature Gran % (Auto) 0.5 H (0.001-0.429) % Nucleat RBC Rel Count 0.0 (0.00-0.2) % Eos # (Auto) 0.27 (0.04-0.36) x10^3/uL Immature Gran # (Auto) 0.07 H (0.001-0.031) x10^3u/L Absolute Lymphs (auto) 1.70 (1.18-3.74) x10^3/uL Absolute Monos (auto) 0.39 (0.24-0.86) x10^3/uL Absolute Nucleated RBC 0.00 (0.00-0.012) x10^3u/L Lymphocytes % 12.4 L (19.3-51.7) % Monocytes % 2.9 L (4.7-12.5) % Eosinophils % 2.0 (0.7-5.8) % Basophils % 0.8 (0.1-1.2) % Absolute Granulocytes 11.12 H (1.56-6.13) x10^3/uL Basophils # 0.11 H (0.01-0.08) x10^3/uL Sodium (135-145) mmol/L Potassium (3.5-5.1) mmol/L Chloride (98-107) mmol/L Carbon Dioxide (22-30) mmol/L Anion Gap (5-15) MEQ/L BUN (7-17) mg/dL Creatinine (0.52-1.04) mg/dL Estimated GFR ML/MIN Glucose (74-106) mg/dL Calcium (8.4-10.2) mg/dL Total Bilirubin (0.2-1.3) mg/dL AST (14-36) U/L ALT (0-35) U/L Alkaline Phosphatase (38-126) U/L Troponin I (0.000-0.033) ng/mL Serum Total Protein (6.3-8.2) g/dL Albumin (3.5-5.0) g/dL Lipase (23-300) U/L - Progress Progress: improved Progress Note: 48-year-old female presents to emergency department for evaluation and treatment of right shoulder pain. Patient also experienced nausea and vomiting complained of abdominal pain. CT abdomen pelvis shows no acute findings. Laboratory workup essentially nonremarkable. Troponin negative x 2. EKG normal sinus rhythm. Patient received droperidol and morphine for pain control. Symptoms significantly improved. Right upper extremity sling applied for comfort. Patient blood pressure initially elevated as she has not taken her a.m. meds. Metoprolol and lisinopril administered according to patient's medication regimen per patient. Blood pressure significantly improved. Patient discharged home. Patient has a follow-up appointment scheduled with her orthopedist today. Nausea vomiting resolved. Patient tolerated p.o. She voices no other complaints or concerns at this time. Portions of this note were created with voice recognition technology. There may be grammatical, spelling, punctuation or sound alike errors Complexity of problem addressed is moderate acute complicated. No critical care time. Complexity of data reviewed and analyzed is moderate. Test ordered ches t reviewed results analyzed and correlated clinically with history and physical exam. Risk of complication and or risk of morbidity/mortality of patient management is low. Vital stable. Time spent to discharge patient approximately 15 minutes. Plan of care established for shared decision making. No social determinants of health present to impede follow-up. Portions of this note were created with voice recognition technology. There may be grammatical, spelling, punctuation or sound alike errors 02/25/24 10:33 Counseled pt/family regarding: lab results, diagnosis - Departure Departure Disposition: Home Clinical Impression: Postoperative pain, Abdominal pain, Nausea and vomiting, Shoulder pain Condition: Stable Critical Care Time: No Referrals: SHAE MORGAN, GOLF COACH [Primary Care Provider] - Follow up/PCP as directed Additional Instructions: Discharge/Care Plan ALLY LION was seen on 02/25/24 in the Emergency Room. The patient was counseled regarding Diagnosis,Lab results, Imaging studies, need for follow up and when to return to the Emergency Room. Prescriptions given: Discharge Note I have spoken with the patient and/or caregivers. I have explained the patient's condition, diagnosis and treatment plan based on the information available to me at this time. I have answered the patient's and/or caregiver's questions and addressed any concerns. The patient and/or caregivers have as good understanding of the patient's diagnosis, condition and treatment plan as can be expected at this point. The vital signs have been stable. The patient's condition is stable and appropriate for discharge from the emergency department. The patient will pursue further outpatient evaluation with the primary care physician or other designated or consulting physician as outlined in the discharge instructions. The patient and/or caregivers are agreeable to this plan of care and follow-up instructions have been explained in detail. The patient and/or caregivers have received these instruction. The patient/and or caregivers are aware that any significant change in condition or worsening of symptoms should prompt an immediate return to this or the closest emergency department or call 911.
--- NOTE | 2024-02-25 08:50 | XRAY ---
Indication: Pain. Nausea. Multiple contiguous axial images obtained through the abdomen and pelvis without contrast. Comparison: October 08, 2023 Lung bases remain clear. Heart not enlarged. Stable small hiatal hernia. Noncontrasted stomach and bowel loops nonobstructed again with normal appendix. Again fatty liver and cholecystectomy. No free fluid/air. Remaining liver, pancreas, spleen, adrenal glands, kidneys, ureters, bladder, and uterus are unremarkable for noncontrast exam. Again minimal aortoiliac calcifications without AAA. Osseous structures intact again with mild degenerative changes throughout the spine. Impression: Stable small hiatal hernia, fatty liver, and degenerative spondylosis. No new/acute findings on this noncontrast exam.
[2024-02-25] MEDS ORDERED: Lopressor 25MG Tab ONE (09:43)
[2024-02-25] MEDS: Lopressor 25MG Tab PO ONE (09:45)
[2024-02-25] MEDS: Zestril 5 MG PO STA (09:50)
[2024-02-25 10:13] VITALS: PULSE 75; RESP 18
[2024-02-25 10:26] VITALS: O2SAT 99
[2024-02-25 10:29] VITALS: BP 211/108
== END 2024-02-25 10:32 | disposition home or self-care (01) ==
LOC: ED 06:56
DX: G89.18 Other acute postprocedural pain (principal); M25.511 Pain in right shoulder; R10.84 Generalized abdominal pain; R11.2 Nausea with vomiting, unspecified; I10 Essential (primary) hypertension; Z79.891 Long term (current) use of opiate analgesic; Z79.899 Other long term (current) drug therapy; Z72.0 Tobacco use
CPT/HCPCS: 36415; 74176; 80053; 83690; 84484; 85025; 93005; 93041; 94760; 96374; 96375; 99284; J2270; A9270-GY

== ENCOUNTER 2025-03-09 16:16 | Emergency (ER) | payer OTHER ==
--- NOTE | 2025-03-09 16:25 | ERPHSYRPT ---
- History of Present Illness Time Seen by Provider: 03/09/25 16:25 Source: patient, family Exam Limitations: no limitations Physician History: This is a 49-year-old white female patient who arrives via private vehicle and is a patient of nurse practitioner Charles with a complaint of headache for several days. Patient also has associated generalized bodyaches, nausea, vomiting and diarrhea. Patient was weaned off Suboxone on 02/19/2025. Because of symptoms she was started on Belbuca which she was told to stop today and a prescription for Imitrex was sent to the pharmacy. Patient has not taken the Imitrex at this time. Patient has a global headache. She states is similar to her migraine headache. It is significant but not necessarily the worst headache she has ever had per her report. Patient has a history of hypertension, degenerative disc disease, anxiety and depression. She is a daily smoker of tobacco cigarettes. Quality: aching, throbbing Head Pain Location: global Severity of Pain-Max: moderate Severity of Pain-Current: moderate Recent Head Trauma: no recent headache/trauma Modifying Factors: Improves With: exposure to light, noise Associated Symptoms: nausea/vomiting, sensitive to light, No vision changes, No visual disturbance Previous symptoms: same symptoms as today, recently seen, recently treated Allergies/Adverse Reactions: sulfamethoxazole [From Febra] Allergy (Intermediate, Verified 03/09/25 16:34) Hives trimethoprim [From Febra] Allergy (Intermediate, Verified 03/09/25 16:34) Hives adhesive Adverse Reaction (Intermediate, Verified 03/09/25 16:34) Rash Home Medications: Tizanidine HCl 4 mg [Zanaflex 4 MG] 4 mg PO DAILY 07/28/20 [History] Gabapentin [Neurontin] 800 mg PO TID 01/05/21 [History] calcitrioL [Calcitriol] 0.5 mcg PO BID 07/17/23 [History] Cyclobenzaprine HCl 10 mg [Cyclobenzaprine 10 MG] 10 mg PO BIDPRN PRN 10/08/23 [History] Levothyroxine Sodium 125 mcg PO DAILY 10/08/23 [History] Progesterone, Micronized [Progesterone] 200 mg PO UD 10/08/23 [History] lisinopriL [Lisinopril] 5 mg PO DAILY 04/23/24 [History] Hx Tetanus, Diphtheria Vaccination/Date Given: Yes Hx Influenza Vaccination/Date Given: No Hx Pneumococcal Vaccination/Date Given: No Travel Risk - International Travel Have you traveled outside of the country in past 3 weeks: No - Emerging Infectious Disease Are you exhibiting symptoms associated with any current EIDs: No Symptoms: Vomitting - Review of Systems Constitutional: No Symptoms Eyes: No Symptoms Ears, Nose, & Throat: No Symptoms Respiratory: No Symptoms Cardiac: No Symptoms Abdominal/Gastrointestinal: Nausea, Vomiting, Diarrhea, Appetite Changes Genitourinary Symptoms: No Symptoms Musculoskeletal: Arthralgias, Myalgias Skin: No Symptoms Neurological: Headache Psychological: No Symptoms Endocrine: No Symptoms Hematologic/Lymphatic: No Symptoms Immunological/Allergic: No Symptoms All Other Systems: Reviewed and Negative - Past Medical History Pertinent Past Medical History: Yes Neurological History: Migraines ENT History: No Pertinent History Cardiac History: Hypertension Respiratory History: Other Endocrine Medical History: Other Musculoskeletal History: Degenerative Disk Disease, Other GI Medical History: GERD History: Other Psycho-Social History: Anxiety, Depression Female Reproductive Disorders: Abnormal Uterine Bleeding Other Medical History: PMH: ANKYLOSING SPONDYLOSIS. PSH: THYROID REMOVAL, TONSILECTOMY, CARPAL SX BILAT., GALLBLADDER REMOVAL, R SHOULDER REPLACEMENT (02/2023) - Past Surgical History Past Surgical History: Yes Neuro Surgical History: No Pertinent History Cardiac: No Pertinent History Respiratory: No Pertinent History Gastrointestinal: No Pertinent History Genitourinary: Other Musculoskeletal: Orthopedic Surgery Female Surgical History: No Pertinent History Other Surgical History: thyroid/parathyroidectomy. R shoulder. renal stents d/t stones - Female History Hx Last Menstrual Period: 4 years ago - Social History Smoking Status: Current every day smoker How long have you smoked: Since teen Exposure to second hand smoke: Yes Drug Use: marijuana - Social Determinants of Health Will the patient participate in the screening: Declined to provide - Nursing Vital Signs Nursing Vital Signs: Initial Vital Signs Temperature 97.3 F 03/09/25 16:17 Pulse Rate 86 03/09/25 16:17 Respiratory Rate 16 03/09/25 16:17 Blood Pressure 172/124 03/09/25 16:17 O2 Sat by Pulse Oximetry 98 03/09/25 16:17 Pain Scale Pain Intensity 4 - Physical Exam General Appearance: mild distress Eye Exam: PERRL/EOMI, eyes nml inspection Ears, Nose, Throat Exam: normal ENT inspection, moist mucous membranes Neck Exam: normal inspection, non-tender, supple, full range of motion Respiratory Exam: normal breath sounds, lungs clear, airway intact, No chest tenderness, No respiratory distress Cardiovascular Exam: regular rate/rhythm, normal heart sounds, normal peripheral pulses Gastrointestinal/Abdominal Exam: soft, normal bowel sounds, No tenderness Back Exam: normal inspection, normal range of motion, No CVA tenderness, No vertebral tenderness Extremity Exam: normal inspection, normal range of motion, pelvis stable Mental Status Exam: alert, oriented x 3, cooperative supervisor telephone clerks Exam: normal hearing, normal speech, PERRL, tongue midline Motor/Sensory Exam: no motor deficit, no sensory deficit, no pronator drift Skin Exam: normal color, warm, dry Lymphatic Exam: No adenopathy SpO2 Interpretation: normal O2 Delivery: Room Air - Course Nursing assessment & vital signs reviewed: Yes Ordered Tests: Active Orders 24 hr Category Date Time Status IV Insertion STAT Care 03/09/25 18:29 Active Pulse Oximetry (ED) STAT Care 03/09/25 18:29 Active ACO SDOH Referral ONCE Cons 03/09/25 16:52 Active HEAD WITHOUT CONTRAST [CT] Stat Exams 03/09/25 18:30 Taken CBC W DIFF Stat Lab 03/09/25 18:55 Completed CMP Stat Lab 03/09/25 18:55 Completed MONO SCREEN Stat Lab 03/09/25 18:55 Completed UA W/RFX UR CULTURE Stat Lab 03/09/25 19:42 Completed Urine Triage Profile Stat Lab 03/09/25 19:42 Completed Medication Summary Discontinued Medications Generic Name Dose Route Start Last Admin Trade Name Sebastianq PRN Reason Stop Dose Admin Droperidol 0.625 mg 03/09/25 18:29 03/09/25 18:57 Droperidol 5 Mg/2 Ml Vial IV 03/09/25 18:30 0.625 mg STAT ONE Administration Droperidol Confirm 03/09/25 18:56 Droperidol 5 Mg/2 Ml Vial Administered 03/09/25 18:57 Dose 5 mg .ROUTE .STK-MED ONE Sodium Chloride 1,000 mls @ 999 mls/hr 03/09/25 18:29 03/09/25 20:12 Sodium Chloride 0.9% 1000 Ml IV 03/09/25 19:29 Infused .Q1H1M STA Infusion Sodium Chloride Confirm 03/09/25 18:56 Sodium Chloride 0.9% 1000 Ml Administered 03/09/25 18:57 Dose 1,000 mls @ ud .ROUTE .STK-MED ONE Ketorolac Tromethamine 30 mg 03/09/25 18:29 03/09/25 18:57 Ketorolac Tromethamine 30 Mg/Ml Inj IV 03/09/25 18:30 30 mg STAT ONE Administration Ketorolac Tromethamine Confirm 03/09/25 18:56 Ketorolac Tromethamine 30 Mg/Ml Inj Administered 03/09/25 18:57 Dose 30 mg .ROUTE .STK-MED ONE Sumatriptan Succinate 6 mg 03/09/25 19:50 03/09/25 19:57 Sumatriptan Succinate 6 Mg/0.5 Ml Vial SQ 03/09/25 19:51 6 mg STAT STA Administration Sumatriptan Succinate Confirm 03/09/25 19:56 Sumatriptan Succinate 6 Mg/0.5 Ml Vial Administered 03/09/25 19:57 Dose 6 mg SQ .STK-MED ONE Lab/Rad Data: Laboratory Result Diagrams 03/09/25 18:55 03/09/25 18:55 Laboratory Results 03/09/25 03/09/25 03/09/25 Range/Units 19:42 19:42 18:56 WBC (3.98-10.04) x10^3/uL RBC (3.93-5.22) x10^6/uL Hgb (11.2-15.7) g/dL Hct (34.1-44.9) % MCV (79.4-94.8) fL MCH (25.6-32.2) pg MCHC (32.2-35.5) g/dL RDW (11.7-14.4) % Plt Count (182-369) x10^3/uL MPV (9.4-12.3) fL Gran % (34.0-71.1) % Immature Gran % (Auto) (0.001-0.429) % Nucleat RBC Rel Count (0.00-0.2) % Eos # (Auto) (0.04-0.36) x10^3/uL Immature Gran # (Auto) (0.001-0.031) x10^3u/L Absolute Lymphs (auto) (1.18-3.74) x10^3/uL Absolute Monos (auto) (0.24-0.86) x10^3/uL Absolute Nucleated RBC (0.00-0.012) x10^3u/L Lymphocytes % (19.3-51.7) % Monocytes % (4.7-12.5) % Eosinophils % (0.7-5.8) % Basophils % (0.1-1.2) % Absolute Granulocytes (1.56-6.13) x10^3/uL Basophils # (0.01-0.08) x10^3/uL Sodium (135-145) mmol/L Potassium (3.5-5.1) mmol/L Chloride (98-107) mmol/L Carbon Dioxide (22-30) mmol/L Anion Gap (5-15) MEQ/L BUN (7-17) mg/dL Creatinine (0.52-1.04) mg/dL Estimated GFR ML/MIN Glucose (74-106) mg/dL Calcium (8.4-10.2) mg/dL Total Bilirubin (0.2-1.3) mg/dL AST (14-36) U/L ALT (0-35) U/L Alkaline Phosphatase (38-126) U/L Serum Total Protein (6.3-8.2) g/dL Albumin (3.5-5.0) g/dL Urine Color Yellow (Yellow) Urine Appearance Clear (Clear) Urine pH 6.5 (4.6-8.0) Ur Specific [place] 1.020 (1.005-1.030) Urine Protein Negative (Negative) Urine Glucose (UA) Negative (Negative) mg/dL Urine Ketones Negative (Negative) Urine Blood Negative (Negative) Urine Nitrite Negative (Negative) Urine Bilirubin Negative (Negative) Urine Urobilinogen 1.0 A (0.2) mg/dL Ur Leukocyte Esterase Trace A (Negative) U Hyaline Cast (Auto) NONE SEEN (0-2) /LPF Urine Microscopic RBC 3-5 (0-5) /HPF Urine Microscopic WBC 0-2 (0-5) /HPF Ur Epithelial Cells None Seen (None Seen) /HPF Urine Bacteria None Seen (None Seen) /HPF Urine Culture Reflexed NO (NO) Urine Opiates Level NEGATIVE (NEGATIVE) Ur Methadone NEGATIVE (NEGATIVE) Urine Barbiturates NEGATIVE (NEGATIVE) Ur Phencyclidine (PCP) NEGATIVE (NEGATIVE) Urine Amphetamine NEGATIVE (NEGATIVE) U Benzodiazepine Level NEGATIVE (NEGATIVE) Urine Cocaine NEGATIVE (NEGATIVE) Urine Marijuana (THC) POSITIVE A (NEGATIVE) Monoscreen (NEGATIVE) Influenza Type A Ag NEGATIVE (NEGATIVE) Influenza Type B Ag NEGATIVE (NEGATIVE) RSV (PCR) NEGATIVE (NEGATIVE) SARS-CoV-2 (PCR) NEGATIVE (NEGATIVE) 03/09/25 03/09/25 03/09/25 Range/Units 18:55 18:55 18:55 WBC 9.8 (3.98-10.04) x10^3/uL RBC 5.35 H (3.93-5.22) x10^6/uL Hgb 15.5 (11.2-15.7) g/dL Hct 45.9 H (34.1-44.9) % MCV 85.8 (79.4-94.8) fL MCH 29.0 (25.6-32.2) pg MCHC 33.8 (32.2-35.5) g/dL RDW 12.6 (11.7-14.4) % Plt Count 274 (182-369) x10^3/uL MPV 9.9 (9.4-12.3) fL Gran % 57.7 (34.0-71.1) % Immature Gran % (Auto) 0.1 (0.001-0.429) % Nucleat RBC Rel Count 0.0 (0.00-0.2) % Eos # (Auto) 0.19 (0.04-0.36) x10^3/uL Immature Gran # (Auto) 0.01 (0.001-0.031) x10^3u/L Absolute Lymphs (auto) 3.14 (1.18-3.74) x10^3/uL Absolute Monos (auto) 0.71 (0.24-0.86) x10^3/uL Absolute Nucleated RBC 0.00 (0.00-0.012) x10^3u/L Lymphocytes % 32.2 (19.3-51.7) % Monocytes % 7.3 (4.7-12.5) % Eosinophils % 1.9 (0.7-5.8) % Basophils % 0.8 (0.1-1.2) % Absolute Granulocytes 5.62 (1.56-6.13) x10^3/uL Basophils # 0.08 (0.01-0.08) x10^3/uL Sodium 141 (135-145) mmol/L Potassium 3.8 (3.5-5.1) mmol/L Chloride 107 (98-107) mmol/L Carbon Dioxide 27 (22-30) mmol/L Anion Gap 11.5 (5-15) MEQ/L BUN 11 (7-17) mg/dL Creatinine 0.90 (0.52-1.04) mg/dL Estimated GFR 79.4 ML/MIN Glucose 96 (74-106) mg/dL Calcium 8.7 (8.4-10.2) mg/dL Total Bilirubin 0.80 (0.2-1.3) mg/dL AST 26 (14-36) U/L ALT 22 (0-35) U/L Alkaline Phosphatase 132 H (38-126) U/L Serum Total Protein 7.9 (6.3-8.2) g/dL Albumin 4.4 (3.5-5.0) g/dL Urine Color (Yellow) Urine Appearance (Clear) Urine pH (4.6-8.0) Ur Specific [place] (1.005-1.030) Urine Protein (Negative) Urine Glucose (UA) (Negative) mg/dL Urine Ketones (Negative) Urine Blood (Negative) Urine Nitrite (Negative) Urine Bilirubin (Negative) Urine Urobilinogen (0.2) mg/dL Ur Leukocyte Esterase (Negative) U Hyaline Cast (Auto) (0-2) /LPF Urine Microscopic RBC (0-5) /HPF Urine Microscopic WBC (0-5) /HPF Ur Epithelial Cells (None Seen) /HPF Urine Bacteria (None Seen) /HPF Urine Culture Reflexed (NO) Urine Opiates Level (NEGATIVE) Ur Methadone (NEGATIVE) Urine Barbiturates (NEGATIVE) Ur Phencyclidine (PCP) (NEGATIVE) Urine Amphetamine (NEGATIVE) U Benzodiazepine Level (NEGATIVE) Urine Cocaine (NEGATIVE) Urine Marijuana (THC) (NEGATIVE) Monoscreen NEGATIVE (NEGATIVE) Influenza Type A Ag (NEGATIVE) Influenza Type B Ag (NEGATIVE) RSV (PCR) (NEGATIVE) SARS-CoV-2 (PCR) (NEGATIVE) - Progress Progress: improved, re-examined Air Movement: good Progress Note: 03/09/25 18:48 My medical decision making and the assignment of moderate complexity to this patient's medical issue today is based on review of the patient's past medical history, reviewed the patient's medication list, reviewed patient drug allergy list, history presents and physical findings on examination. The workup today includes placement of intravenous line, infusion of normal saline solution, infusion of Compazine, infusion of Ativan, infusion of infusion of Toradol, CT scan of the head, CBC, CMP, urinalysis, urine drug triage Differential diagnosis includes but is not limited to migraine headache, acute intracranial abnormality, sinusitis, opiate withdrawal 03/09/25 20:20 I interpreted the patient's laboratory data results. Based on the laboratory data results, there are no acute, emergent medical issues. The CT scan of the head without contrast was interpreted by the radiologist and I reviewed the impression. The impression states normal CT scan of the head Blood Culture(s) Obtained: No Counseled pt/family regarding: lab results, diagnosis, need for follow-up, rad results Medical Desision Making - Diagnostic Testing Diagnostic test were ordered, analyzed, and reviewed by me: Yes Radiological Interpretation: Reviewed by me, Teleradiologist Report - Risk of complications Low Risk: Low risk of morbidity from additional dx testing or treatment - Departure Departure Disposition: Home Clinical Impression: Vomiting and diarrhea, Headache Condition: Stable Critical Care Time: No Referrals: SHAE MORGAN NP [Primary Care Provider, [facility]] - Follow up/PCP as directed Additional Instructions: Drink plenty of clear liquids before advancing your diet. Make sure you belt picker your Imitrex prescription. Contact your pain specialist tomorrow morning, 03/10/2025, for further evaluation and management of your outpatient pain control. Prescriptions: Ondansetron ODT 4 MG [Zofran Odt 4 mg] 4 mg PO Q6H PRN PRN #10 tablet PRN Reason: Vomiting
[2025-03-09 16:52] VITALS: TEMP 97.3
[2025-03-09] MEDS ORDERED: TORAdol 30 mg Injection ONE (18:56)
[2025-03-09] MEDS ORDERED: Inapsine 5 MG/2 ML ONE (18:56)
[2025-03-09] MEDS: TORAdol 30 mg Injection IV ONE (18:57)
[2025-03-09] MEDS: Inapsine 5 MG/2 ML IV ONE (18:57)
[2025-03-09 18:58] LABS: BASOPHIL % 0.8 % (0.1-1.2); Basophil (Absolute #) 0.08 x10^3/uL (0.01-0.08); Eosinophil (Absolute #) 0.19 x10^3/uL (0.04-0.36); Hematocrit 45.9 % (34.1-44.9); Hemoglobin 15.5 g/dL (11.2-15.7); IMMATURE GRAN # 0.01 x10^3u/L (0.001-0.031); IMMATURE GRAN % 0.1 % (0.001-0.429); Lymphocyte (Absolute #) 3.14 x10^3/uL (1.18-3.74); Mean Corpuscular Hemoglobin 29.0 pg (25.6-32.2); Mean Corpuscular Hgb Concent. 33.8 g/dL (32.2-35.5); Monocyte (Absolute #) 0.71 x10^3/uL (0.24-0.86); NUCLEATED RBC # 0.00 x10^3u/L (0.00-0.012); NUCLEATED RBC % 0.0 % (0.00-0.2); Platelet Count 274 x10^3/uL (182-369); Red Blood Count 5.35 x10^6/uL (3.93-5.22); White Blood Count 9.8 x10^3/uL (3.98-10.04)
[2025-03-09 19:12] LABS: Calcium 8.7 mg/dL (8.4-10.2); Carbon Dioxide 27.0 mmol/L (22-30); Creatinine 1 0.9 mg/dL (0.52-1.04); EST GLOMERULAR FILTRATION RATE 79.4 ML/MIN; Glucose 96.0 mg/dL (74-106); Potassium 3.8 mmol/L (3.5-5.1); SGOT/AST 26.0 U/L (14-36); SGPT/ALT 22.0 U/L (0-35); Total Protein 7.9 g/dL (6.3-8.2)
[2025-03-09 19:21] VITALS: RESP 18
[2025-03-09 19:47] LABS: INFLUENZA A NEGATIVE (NEGATIVE); INFLUENZA B NEGATIVE (NEGATIVE); RESPIRATORY SYNCTIAL VIRUS NEGATIVE (NEGATIVE); SARS-CoV-2 Xpert Express NEGATIVE (NEGATIVE)
[2025-03-09 19:51] LABS: Glucose, Urine Negative (Negative); Protein,Urine Dip Negative (Negative); WBC 0-2 /HPF (0-5)
[2025-03-09] MEDS ORDERED: Imitrex 6 MG/0.5 ML SQ ONE (19:56)
[2025-03-09] MEDS: Imitrex 6 MG/0.5 ML SQ STA (19:57)
[2025-03-09 20:02] LABS: Amphetamine,Urine NEGATIVE (NEGATIVE); Barbiturate,Urine NEGATIVE (NEGATIVE); Benzodiazepine,Urine NEGATIVE (NEGATIVE); Cocaine,Urine NEGATIVE (NEGATIVE); Methadone,Urine NEGATIVE (NEGATIVE); Opiate,Urine NEGATIVE (NEGATIVE); PCP,Urine NEGATIVE (NEGATIVE); THC,Urine POSITIVE (NEGATIVE)
[2025-03-09 20:13] VITALS: BP 170/96; PULSE 83; O2SAT 98
[2025-03-09] MEDS: MORPHINE SULFATE 2 MG INJ IV ONE (20:26)
--- NOTE | 2025-03-10 08:39 | XRAY ---
Indication: Global headache 6 days. Multiple contiguous axial images obtained through the head without contrast. Comparison: December 08, 2024 Normal appearing brain parenchyma, ventricles, and bony calvarium. Visualized paranasal sinuses and mastoid air cells are clear. Impression: Continued normal CT head without contrast exam.
== END 2025-03-09 20:40 | disposition home or self-care (01) ==
LOC: ED 16:16
DX: R51.9 Headache, unspecified (principal); R11.2 Nausea with vomiting, unspecified; R19.7 Diarrhea, unspecified; M79.10 Myalgia, unspecified site; I10 Essential (primary) hypertension; Z79.899 Other long term (current) drug therapy; Z72.0 Tobacco use; Z59.19 Other inadequate housing